=== PATIENT | female | born 1930 | race Caucasian/White ===

== ENCOUNTER 2017-04-02 10:15 | Inpatient (IN) ==
--- NOTE | 2017-04-02 10:36 | EKG Report ---
Stationary ECG Study [facility] Test Date: 04/02/2017 10:23:33 AM Pat Name: RAJ RODAS Department: Room: Gender: F Sample Washer: : 1930 Requested by: Castro Banks Order Number: [id number] Reading MD: SANDI BRIONES Intervals [place] Rate: 109 P: 73 UT: 194 QRS: -20 QRSD: 90 T: 76 QT: 339 QTc: 403 Interpretive Statements SINUS TACHYCARDIA ABNORMAL RHYTHM ECG Electronically Signed On 04-08-17 22:24:18 CDT by SANDI BRIONES [email or web address]
[2017-04-02 10:45] LABS: Basophils % 0.2 % (0.0-0.8); Eosinophils % 0.2 % (0.00-10.9); Hematocrit 34.1 VOL% (35.7-47.0); Hemoglobin 10.3 GM/DL (12.0-16.0); Immature Granulocytes % 0.4 %; Immature Granulocytes Absolute 0.05 #; Lymphocytes # 1.5 10*3/uL (1.4-4.0); Lymphocytes % 12.1 % (21.3-54.2); Mean Corpuscular HGB Conc 30.2 GM/DL (32-36); Mean Corpuscular Hemoglobin 23 PG (27-34); Mean Corpuscular Volume 74.8 FL (87-102); Mean Platelet Volume 8.8 FL (9.6-12.0); Monocytes # 1.1 10*3/uL (0.11-0.8); Monocytes % 8.3 % (1.7-12.7); Neutrophils # 9.9 10*3/uL (1.4-7.4); Neutrophils % 78.8 % (38.7-73.9); Platelet Count 334 T/CUMM (130-400); Red Blood Count 4.56 MC/CUMM (3.8-5.5); Red Cell Distribution Width 16.9 % (9.3-17.3); White Blood Count 12.6 T/CUMM (4-12)
--- NOTE | 2017-04-02 11:16 | XRay Report ---
Portable chest Date: 04/02/2017 Clinical history: Shortness of breath Comparison: 04/26/2016 Technique: Portable AP sitting chest Findings: The heart is enlarged with diffuse arterial calcifications. Progressive diffuse parenchymal findings with small pleural effusions. More prominent pulmonary vasculature/irma with degenerative changes. Impression: Persistent cardiomegaly with progressive edema/infiltration/atelectasis with small pleural effusions. PROCEDURE INTERPRETED AT [facility] DEPARTMENT OF RADIOLOGY Final Report Signed by: Dr. Rosa M Villanueva
[2017-04-02 11:20] LABS: Alanine Aminotransferase 15 U/L (13-56); Albumin 3.5 G/DL (3.4-5.0); Alkaline Phosphatase 114 U/L (45-117); Aspartate Amino Transferase 18 U/L (0-37); Blood Urea Nitrogen 19 MG/DL (7-18); Calcium 8.6 MG/DL (8.5-10.1); Glucose 107 MG/DL (74-106); Magnesium 2.4 MG/DL (1.8-2.4); Osmolality,Calculated 280.4 MOS/KG (273-304); Potassium 3.5 MMOL/L (3.5-5.1); Sodium 140 MMOL/L (136-145); Total Protein 7.4 G/DL (6.4-8.3); Troponin I Only < 0.015 NG/ML (0.00-0.045)
[2017-04-02] MEDS ORDERED: FUROSEMIDE 40 MG/4 ML VIAL IV STA (11:24)
[2017-04-02] MEDS ORDERED: LEVOFLOXACIN INJ 500 MG in PREMIX 1 EACH IV STA (11:28)
[2017-04-02] MEDS ORDERED: ONDANSETRON 4 MG/2 ML VIAL IV STA (11:28)
[2017-04-02] MEDS ORDERED: LEVOFLOXACIN INJ 100 ML IV ONE (11:32)
[2017-04-02] MEDS ORDERED: FUROSEMIDE 40 MG/4 ML VIAL ONE (11:32)
[2017-04-02] MEDS ORDERED: ONDANSETRON 4 MG/2 ML VIAL ONE (11:32)
--- NOTE | 2017-04-02 11:35 | Emergency Department Note ---
Frantz Lewis Mantricia, am scribing for, and in the presence of, Castro Bergeron MD 10:49. Elyssa Lewis Phillip K, MD, personally performed the services described in this documentation, ascribed by Gregory Landry in my presence, and it is both accurate and complete [id number] . Arrival - Arrival Chief Complaint: Shortness of Breath ED Nursing Triage Note: c/o sob onset few weeks ago. +nonproductive cough. pain with coughing Mode of Arrival: Stretcher Limitations: No Limitations Source: Patient, Family - History of Present Illness HPI Narrative: Pt is an 87 y/o white female arriving to ED by EMS with c/o SOB that onset 3 weeks ago. She states that she did not ''think much of it,'' however it has worsened. She reports having pneumonia previously but not this year. She confirms a dry cough, pain all over, dysuria, and a fever today of 102 INNER DIAMETER GRINDER TOOL but denies N/V/D and chills. Pt has a PMHx of HTN,HLD, and a prevalent UTI but denies CHF. Daughter states that she has also been hallucinating. Onset (ago): week(s) Consistency: constant Severity: moderate Severity scale (1-10): 4 Allergies/Adverse Reactions: Allergies Allergy/AdvReac Type Severity Reaction Status Date / Time acetaminophen [From Lortab] Allergy Unknown/Unable Verified 07/24/16 15:06 to obtain Amoxicillin [From Augmentin] Allergy Unknown/Unable Verified 07/24/16 15:06 to obtain clarithromycin [From Biaxin] Allergy Unknown/Unable Verified 07/24/16 15:06 to obtain clavulanic acid Allergy Unknown/Unable Verified 07/24/16 15:06 [From Augmentin] to obtain codeine Allergy Unknown/Unable Verified 07/24/16 15:06 to obtain hydrocodone [From Lortab] Allergy Unknown/Unable Verified 07/24/16 15:06 to obtain levofloxacin [From Levaquin] Allergy Unknown/Unable Verified 07/24/16 15:06 to obtain meperidine [From Demerol] Allergy Unknown/Unable Verified 07/24/16 15:06 to obtain Home Medications: Home Medications Medication Instructions Recorded Confirmed Type amLODIPine [Norvasc] 5 mg PO DAILY 05/23/15 07/24/16 History Sulfameth/Trimeth 800-160 Tab 1 tablet PO BID #14 tablet 04/26/16 07/24/16 Rx [Bactrim Ds Tab] Baclofen Tab [Lioresal] 5 mg PO Q8H PRN 07/24/16 07/24/16 History Donepezil [Aricept] 5 mg PO BEDTIME 07/24/16 07/24/16 History Doxycycline Hyclate 100 mg PO BID 07/24/16 07/24/16 History Escitalopram [Lexapro] 20 mg PO DAILY 07/24/16 07/24/16 History FLUoxetine [PROzac] 20 mg PO DAILY 07/24/16 07/24/16 History Linaclotide [Linzess] 145 mcg PO DAILY 07/24/16 07/24/16 History Loperamide HCl [Loperamide] 2 mg PO Q6H PRN 07/24/16 07/24/16 History Meclizine [Antivert] 12.5 mg PO Q8H PRN 07/24/16 07/24/16 History Memantine HCl 5 mg PO DAILY 07/24/16 07/24/16 History Metoprolol Succinate 50 mg PO BID 07/24/16 07/24/16 History Nitrofurantoin Monohyd/M-Cryst 100 mg PO BID 07/24/16 07/24/16 History [Nitrofurantoin [place]-Mcr 100 mg] PARoxetine HCl [Paroxetine HCl] 30 mg PO QAM 07/24/16 07/24/16 History Phenylephrine/Guaifenesin [Deconex 1 tablet PO Q4H PRN 07/24/16 07/24/16 History IR] Rabeprazole Sodium 20 mg PO BID 07/24/16 07/24/16 History Tapentadol HCl [Nucynta] 100 mg PO DAILY PRN 07/24/16 07/24/16 History Valsartan [Diovan] 160 mg PO BID 07/24/16 07/24/16 History Warfarin Sodium 0.5 mg PO DAILY 07/24/16 07/24/16 History Warfarin Sodium 2.5 mg PO DAILY 07/24/16 07/24/16 History Warfarin Sodium 3 mg PO DAILY 07/24/16 07/24/16 History Warfarin Sodium 4 mg PO DAILY 07/24/16 07/24/16 History Warfarin Sodium 5 mg PO SUTUWETHSA 07/24/16 07/24/16 History cloNIDine TAB [Catapres Tab] 0.2 mg PO BEDTIME 07/24/16 07/24/16 History prednisoLONE acetate [PrednisoLONE 1 drop RIGHT EYE QID 07/24/16 07/24/16 History Acetate 1% Oph Susp] Review of System - Review of System 12 point system: reviewed and no additional remarkable complaints except as stated - Review of System Constitutional: Present: fever (102 INNER DIAMETER GRINDER TOOL), other (SOB; pain all over). Absent: chills, diaphoresis Eyes: Absent: discharge, pain, redness Head/Ears/Nose/Throat: Absent: earache, epistaxis Respiratory: Present: cough. Absent: respiratory distress, wheezing Cardiovascular: Absent: chest pain, palpitations Gastrointestinal: Absent: abdominal pain, nausea, vomiting, diarrhea Genitourinary female: Present: other (dysuria). Absent: abnormal menses, dysuria Musculoskeletal: Absent: arm pain, back pain, leg pain, neck pain Skin: Absent: rash, lesions Neurological: Absent: headache Psychiatric: Absent: anxiety, depression Medical,Surgical,& Family Hx - Medical History Cardio: History of: Hypertension Neurology: History of: Cerebrovascular Accident Endocrine: History of: Dyslipidemia, Thyroid Disorder - Surgical History Reproductive Surgeries: Surgical HX of;: Hysterectomy - Social History Smoking Status: Never smoker Frequency of Alcohol Use: None Type of Drug Use: None Exam Vital Signs: Vital Signs Temperature 99.8 F H 04/02/17 10:24 Pulse Rate 111 H 04/02/17 10:24 Respiratory Rate 18 04/02/17 10:28 Blood Pressure 164/84 04/02/17 10:24 O2 Sat by Pulse Oximetry 955 H 04/02/17 10:19 - General General appearance: alert, in no apparent distress - Head Head exam: Present: atraumatic, normocephalic, normal inspection - Eye Eye exam: Present: PERRL, EOMI, other (pale conjuctiva) - ENT ENT exam: Present: normal exam, normal oropharynx, mucous membranes moist, TM's normal bilaterally, normal external ear exam - Neck Neck exam: Present: normal inspection, full ROM, tenderness. Absent: trachea midline - Chest Chest inspection: Present: normal inspection, symmetric chest wall rise. Absent : tenderness - Respiratory Respiratory exam: Present: rales, wheezes - Cardiovascular Cardiovascular exam: Present: normal rhythm, tachycardia, normal heart sounds - Extremities Exam Extremities exam: Present: full ROM, normal capillary refill, other (trace edema bilat). Absent: tenderness - Back Exam Back exam: Present: normal inspection, full ROM. Absent: tenderness - Neurological Exam Neurological exam: Present: alert, oriented X3, CN II-XII intact, normal gait, reflexes normal - Psychiatric Psychiatric exam: Present: normal affect, normal mood - Skin Skin exam: Present: warm, dry, intact, normal color Course Course Narrative: Patient discussed with the hospitalist. She appears to have an increased infiltrate in the right lower lobe and is possibly overlying congestive heart failure. Results - Labs CBC & BMP: 04/02/17 10:31 04/02/17 10:31 Lab Results: I have reviewed the patients labs Labs: Laboratory Tests 04/02/17 04/02/17 04/02/17 10:31 10:31 10:31 WBC 12.6 H Hgb 10.3 L Hct 34.1 L MCV 74.8 L MCH 23 L MCHC 30.2 L MPV 8.8 L Neut % (Auto) 78.8 H Lymph % (Auto) 12.1 L Neut # (Auto) 9.9 H [place] # (Auto) 1.1 H Chloride 108 H BUN 19 H Creatinine 1.40 H Glucose 107 H B-Natriuretic Peptide 182 H Globulin 3.9 H Albumin/Globulin Ratio 0.8 L - EKG EKG results: interpreted by AYOD (Sinus tachycardia) - Diagnostic Findings Procedure: Chest x-ray: report reviewed by me (Persistent cardiomegaly with progressive faith/infiltration/atelectasis with small pleural effusions.) Disposition Clinical Impression: Congestive heart failure, Possible right lower lobe pneumonia Case discussed with: patient, patient's family Disposition: Still a Patient Condition: Guarded Additional Instructions: Admit to the hospitalist.
[2017-04-02 12:03] LABS: PT Patient Result 11.1 SECS
--- NOTE | 2017-04-02 12:13 | Hospitalist History & Physical ---
Assessment and Plan - Time spent with patient Time spent with patient: Greater than 30 minutes (1) Pneumonia Status: Acute Assessment and plan: CXR reveals progressive edema/infiltration/atelectasis with small pleural effusions. Started on levaquin in the ER. Will continue antibiotic coverage. Current Visit: Yes (2) Hypertension Status: Acute Assessment and plan: Controlled on home meds. Will continue to monitor and adjust medications accordingly. Current Visit: Yes (3) Congestive heart failure Status: Acute Assessment and plan: CXR show small pleural effusions. BNP slightly elevated. Given lasix in the ER. Was scheduled to have an appointment with Dr. Bell, Cardiology, today. Will continue Lasix and consult cardiology as necessary. Current Visit: Yes (4) CAD (coronary artery disease) Status: Acute Current Visit: Yes (5) Confused but orients easily Status: Acute Assessment and plan: Patient complains of dysuria. Will check a UA for suspected UTI. Current Visit: Yes History of Present Illness Chief complaint: SOB and coughing History of present illness: Ms. Subramanian is a 87 year old female with a past medical history significant for hypertension, CAD with PCI, neuropathy, advanced age who presents to the ED with complains of worsening dypnea and cough x 3 weeks. She reports that she starting coughing about 3 weeks ago and recently starting becoming more short of breath. She also complains of a sore throat and nonproductive cough with fever. Her daughter is at bedside and assisted with much of the history adding that the patient has recently become more confused and has complained of dysuria. She also added that the patient now sleeps in the recliner where she finds it easier to breathe. The patient denies a known history of congestive heart failure, recent infections, any chest pain on inspiration, palpitations, near syncope, abdominal pain. The patient denies taking any medication to alleviate the symptoms. Chest x-ray on admission reveals persistent cardiomegaly with progressive edema/infiltrate/atelectasis with small pleural effusions. Preliminary lab work is significant for WBC 12.6, BUN 19, Cr 1.4, BNP 182. She will be admitted to the hospital medicine service for further evaluation and treatment. She is a full code. The case has been discussed with Dr. Bennett who will follow with an addendum. Home Medications Medication Instructions Recorded Confirmed Type amLODIPine [Norvasc] 5 mg PO DAILY 05/23/15 07/24/16 History Sulfameth/Trimeth 800-160 Tab 1 tablet PO BID #14 tablet 04/26/16 07/24/16 Rx [Bactrim Ds Tab] Baclofen Tab [Lioresal] 5 mg PO Q8H PRN 07/24/16 07/24/16 History Donepezil [Aricept] 5 mg PO BEDTIME 07/24/16 07/24/16 History Doxycycline Hyclate 100 mg PO BID 07/24/16 07/24/16 History Escitalopram [Lexapro] 20 mg PO DAILY 07/24/16 07/24/16 History FLUoxetine [PROzac] 20 mg PO DAILY 07/24/16 07/24/16 History Linaclotide [Linzess] 145 mcg PO DAILY 07/24/16 07/24/16 History Loperamide HCl [Loperamide] 2 mg PO Q6H PRN 07/24/16 07/24/16 History Meclizine [Antivert] 12.5 mg PO Q8H PRN 07/24/16 07/24/16 History Memantine HCl 5 mg PO DAILY 07/24/16 07/24/16 History Metoprolol Succinate 50 mg PO BID 07/24/16 07/24/16 History Nitrofurantoin Monohyd/M-Cryst 100 mg PO BID 07/24/16 07/24/16 History [Nitrofurantoin [place]-Mcr 100 mg] PARoxetine HCl [Paroxetine HCl] 30 mg PO QAM 07/24/16 07/24/16 History Phenylephrine/Guaifenesin [Deconex 1 tablet PO Q4H PRN 07/24/16 07/24/16 History IR] Rabeprazole Sodium 20 mg PO BID 07/24/16 07/24/16 History Tapentadol HCl [Nucynta] 100 mg PO DAILY PRN 07/24/16 07/24/16 History Valsartan [Diovan] 160 mg PO BID 07/24/16 07/24/16 History Warfarin Sodium 0.5 mg PO DAILY 07/24/16 07/24/16 History Warfarin Sodium 2.5 mg PO DAILY 07/24/16 07/24/16 History Warfarin Sodium 3 mg PO DAILY 07/24/16 07/24/16 History Warfarin Sodium 4 mg PO DAILY 07/24/16 07/24/16 History Warfarin Sodium 5 mg PO SUTUWETHSA 07/24/16 07/24/16 History cloNIDine TAB [Catapres Tab] 0.2 mg PO BEDTIME 07/24/16 07/24/16 History prednisoLONE acetate [PrednisoLONE 1 drop RIGHT EYE QID 07/24/16 07/24/16 History Acetate 1% Oph Susp] Allergies Allergy/AdvReac Type Severity Reaction Status Date / Time acetaminophen [From Lortab] Allergy Unknown/Unable Verified 07/24/16 15:06 to obtain Amoxicillin [From Augmentin] Allergy Unknown/Unable Verified 07/24/16 15:06 to obtain clarithromycin [From Biaxin] Allergy Unknown/Unable Verified 07/24/16 15:06 to obtain clavulanic acid Allergy Unknown/Unable Verified 07/24/16 15:06 [From Augmentin] to obtain codeine Allergy Unknown/Unable Verified 07/24/16 15:06 to obtain hydrocodone [From Lortab] Allergy Unknown/Unable Verified 07/24/16 15:06 to obtain levofloxacin [From Levaquin] Allergy Unknown/Unable Verified 07/24/16 15:06 to obtain meperidine [From Demerol] Allergy Unknown/Unable Verified 07/24/16 15:06 to obtain Medical,Surgical,& Family Hx - Medical History Cardio: History of: Hypertension Neurology: History of: Cerebrovascular Accident Endocrine: History of: Dyslipidemia, Thyroid Disorder - Surgical History Reproductive Surgeries: Surgical HX of;: Hysterectomy - Social History Smoking Status: Never smoker Frequency of Alcohol Use: None Type of Drug Use: None Marital Status: Single Lives With:: Alone (lives in [facility]) Functional capacity: uses cane/walker - Constitutional Constitutional: Present: fever(s), frequent falls, headache(s) - EENT Eyes: Absent: blurry vision, loss of vision Ears: Absent: decreased hearing, ear pain Nose, mouth and throat: Present: headache(s), sore throat. Absent: epistaxis, nasal congestion, sinus pressure, vertigo - Cardiovascular Cardiovascular: Present: dyspnea, dyspnea on exertion, edema. Absent: chest pain at rest, chest pain with activity - Respiratory Respiratory: Present: cough, dyspnea, wheezing. Absent: hemoptysis, pain on inspiration - Gastrointestinal Gastrointestinal: Absent: constipation, diarrhea, nausea, vomiting - Genitourinary Genitourinary: Present: dysuria. Absent: hematuria - Musculoskeletal Musculoskeletal: Present: myalgias. Absent: back pain - Neurological Neurological: Present: confusion, numbness. Absent: dizziness, syncope - Psychiatric Psychiatric: Present: confusion. Absent: anxiety, depression - Endocrine Endocrine: Absent: cold intolerance, fatigue, heat intolerance - Hematologic/Lymphatic Hematologic/Lymphatic: Absent: easy bleeding, easy bruising Exam - Constitutional Vitals: Period Temp Pulse Resp BP Sys/Alas Pulse Ox Last 24 Hr 99.8 F-99.8 F 111-111 18-18 164-164/84-84 955 Exam: General appearance: obese, no acute distress - Head Head exam: Present: normocephalic, atraumatic - Eye Eye exam: Present: EOMI. Absent: conjunctival injection, nystagmus Pupils: Present: HANNA, normal accommodation - ENT ENT exam: Present: normal exam, normal external ear exam - Neck Neck exam: Present: normal inspection. Absent: lymphadenopathy, tenderness, thyromegaly - Respiratory Respiratory exam: Present: decreased breath sounds. Absent: rales, wheezes - Cardiovascular Cardiovascular exam: Present: regular rate and rhythm. Absent: carotid bruit, gallop, rubs - GI/Abdominal GI/Abdominal exam: Present: normal bowel sounds. Absent: ascites, distended, mass - Extremities Exam Extremities exam: Present: normal inspection, normal capillary refill. Absent: edema - Back Exam Back exam: Absent: CVA tenderness (L), CVA tenderness (R) - Neurological Exam Neurological exam: Present: alert, oriented X3 - Psychiatric Psychiatric exam: Present: normal affect, normal mood - Skin Skin exam: Present: normal color, warm, dry Results - Labs CBC & BMP: 04/02/17 10:31 04/02/17 10:31 Lab Results: I have reviewed the past 24 hour labs - Diagnostic Findings Procedure: Chest x-ray: image reviewed by me, report reviewed by me
[2017-04-02 12:18] LABS: Apearance,Urine Slightly Hazy (Clear); Bacteria,Urine Moderate /HPF (Few); Bilirubin,Urine Negative (Negative); Blood, Urine Moderate mg/dL (Negative); Glucose,Urine (UA) Negative (Negative); Ketones,Urine Negative (Negative); Mucus,Urine Few /LPF (Occasional); Nitrite,Urine Positive (Negative); Protein,Urine 100 MG/DL; RBC,Urine 7 /HPF (0-4); Squamous Epithelial Cell,Urine Occasional /HPF (0-10); Urine Color Yellow (Yellow); Urine Specific Gravity 1.019 (1.001-1.035); WBC,Urine 52 /HPF (0-6)
[2017-04-02] MEDS ORDERED: MAGNESIUM SULF RIDER 2 GM in PREMIX 1 EACH IV PRN (13:37)
[2017-04-02] MEDS ORDERED: MAGNESIUM SULF RIDER 4 GM in PREMIX 1 EACH IV PRN (13:37)
[2017-04-02] MEDS ORDERED: cefTRIAXone 1,000 MG in SODIUM CHLORIDE 0.9% 100 ML IV SCH (14:00)
[2017-04-02] MEDS: ACETAMINOPHEN 325 MG TABLET PO PRN ×2 (14:18→20:39)
[2017-04-02] MEDS ORDERED: FUROSEMIDE 40 MG/4 ML VIAL IV SCH (16:00)
[2017-04-02] MEDS: TEMAZEPAM 15 MG CAPSULE PO SCH (20:40)
[2017-04-03 07:00] LABS: Basophils % 0.2 % (0.0-0.8); Eosinophils # 0.1 10*3/uL (0.0-0.87); Eosinophils % 0.5 % (0.00-10.9); Hematocrit 31.9 VOL% (35.7-47.0); Hemoglobin 9.3 GM/DL (12.0-16.0); Immature Granulocytes % 0.4 %; Immature Granulocytes Absolute 0.05 #; Lymphocytes # 1.5 10*3/uL (1.4-4.0); Lymphocytes % 11.9 % (21.3-54.2); Mean Corpuscular HGB Conc 29.2 GM/DL (32-36); Mean Corpuscular Hemoglobin 22 PG (27-34); Mean Corpuscular Volume 76.3 FL (87-102); Monocytes # 1.3 10*3/uL (0.11-0.8); Neutrophils # 9.7 10*3/uL (1.4-7.4); Platelet Count 312 T/CUMM (130-400); Red Blood Count 4.18 MC/CUMM (3.8-5.5); Red Cell Distribution Width 16.9 % (9.3-17.3); White Blood Count 12.6 T/CUMM (4-12)
[2017-04-03 07:26] LABS: Calcium 7.8 MG/DL (8.5-10.1); Osmolality,Calculated 284.1 MOS/KG (273-304); Potassium 3.2 MMOL/L (3.5-5.1)
[2017-04-03] MEDS: GABAPENTIN 600 MG TABLET PO SCH ×2 (07:58→16:49)
[2017-04-03] MEDS: ASPIRIN CHEW 81 MG TABLET PO SCH (07:59)
[2017-04-03] MEDS: ACETAMINOPHEN 325 MG TABLET PO PRN (08:00)
[2017-04-03] MEDS: PANTOPRAZOLE 40 MG TABLET PO SCH ×2 (08:00→16:50)
[2017-04-03] MEDS: TOPIRAMATE 25 MG TABLET PO SCH ×3 (08:01→16:49)
[2017-04-03] MEDS: CARVEDILOL 12.5 MG TABLET PO SCH (08:01)
[2017-04-03] MEDS: PARoxetine 20 MG TABLET PO SCH ×2 (08:01→16:49)
--- NOTE | 2017-04-03 10:06 | XRay Report ---
Portable chest Date: 04/03/2017 Clinical history: CHF Comparison: 04/02/2017 Technique: Portable AP sitting chest Findings: Stable cardiomegaly with uncoiling of the aorta. Probable additional hiatal hernia. Reduced parenchymal findings with smaller pleural effusions. Degenerative changes are noted. Impression: Improved CHF with smaller pleural effusions. PROCEDURE INTERPRETED AT [facility] DEPARTMENT OF RADIOLOGY Final Report Signed by: Dr. Rosa M Villanueva
[2017-04-03] MEDS: ARIPiprazole 2 MG TABLET PO SCH (11:18)
[2017-04-03] MEDS: amLODIPine 5 MG TABLET PO SCH (11:19)
--- NOTE | 2017-04-03 13:50 | ECHO Report ---
Emily Subramanian Exam Date: 04/03/2017 09:37 Referring Physician: Technologist: Estrellita Bergman Age: 87 Ht (in): 65 Wt (lb): 192 Gender: F Exam Location: [facility] Echo Indications: pneumonia, HTN, CHF, CAD, edema, dyspnea, cough, confusion BP: 134 / 62 HR: 78 Rhythm: Sinus Technical Quality: IMPRESSIONS Technically difficult study Normal chamber sizes 2-3+ concentric LVH Hyperdynamic LV systolic function with ejection fraction estimated be 70% 1+ atrial, mitral, and tricuspid regurgitation with RVSP 43 mmHg plus RAP suggesting moderate pulmonary hypertension Diastolic dysfunction noted MEASUREMENTS (Male / Female) Normal Values 2D ECHO LV Diastolic Diameter PLAX 2.5 cm 4.2 - 5.9 / 3.9 - 5.3 cm LV Systolic Diameter PLAX 1.8 cm LV Fractional Shortening PLAX 25.8 % IVS Diastolic Thickness 1.8 cm 0.6 - 1.0 / 0.6 - 0.9 cm LVPW Diastolic Thickness 1.5 cm 0.6 - 1.0 / 0.6 - 0.9 cm RV Internal Dim ED PLAX 2.7 cm Aortic Root Diameter 2.6 cm LA Systolic Diameter LX 3.1 cm 3.0 - 4.0 / 2.7 - 3.8 cm DOPPLER TR Peak Velocity 326.0 cm/s TR Peak Gradient 42.5 mmHg FINDINGS Left Ventricle Mild concentric left ventricular hypertrophy with diastolic dysfunction. Left ventricular ejection fraction is estimated at 55-60 %. Right Ventricle Normal right ventricular size. Right Atrium Normal right atrial size. Left Atrium Normal left atrial size. Mitral Valve Mild mitral valve sclerosis. Mild mitral valve regurgitation. Aortic Valve Mild aortic valve sclerosis. Mild aortic valve regurgitation. Tricuspid Valve Mild tricuspid valve sclerosis. Moderate tricuspid valve regurgitation. Tricuspid regurgitation velocities suggest a PAP of 42.5mmHg + RAP. Pulmonic Valve Mild pulmonic valve sclerosis. Mild pulmonary valve regurgitation. Pericardium No pericardial effusion. Aorta Normal size aortic root and proximal ascending aorta. Jerson Baird (Electronically Signed) Final Date: 03 Apr 2017 13:49
--- NOTE | 2017-04-03 15:41 | Hospitalist Progress Note ---
Assessment and Plan - Time spent with patient Time spent with patient: Greater than 30 minutes (1) UTI (urinary tract infection) Status: Acute Assessment and plan: Continue antibiotics. Current Visit: Yes (2) Positive blood culture Status: Acute Assessment and plan: Start Vancomycin. Current Visit: Yes (3) CAD (coronary artery disease) Status: Acute Assessment and plan: Continue current management. No chest pain. Current Visit: Yes (4) Congestive heart failure Status: Acute Assessment and plan: Echo done. Diastolic with mild exacerbation. Current Visit: Yes (5) Hypertension Status: Acute Assessment and plan: Continue current management. Current Visit: Yes (6) Pneumonia Status: Acute Assessment and plan: Continue antibiotics. Current Visit: Yes Hospitalist: Subjective Interval history: No complaints or overnight events. Exam - Constitutional Vitals: Period Temp Pulse Resp BP Sys/Alas Pulse Ox Last 24 Hr 97.9 F-99.6 F 60-106 20-24 124-137/53-68 91-93 General appearance: no acute distress - Head Head exam: Present: normocephalic, atraumatic - Eye Eye exam: Present: EOMI Pupils: Present: HANNA - ENT ENT exam: Present: normal exam - Neck Neck exam: Present: normal inspection - Respiratory Respiratory exam: Present: clear to auscultation bilaterally. Absent: rhonchi, wheezes - Cardiovascular Cardiovascular exam: Present: regular rate and rhythm. Absent: gallop, rubs, systolic murmur - GI/Abdominal GI/Abdominal exam: Present: normal bowel sounds, soft. Absent: distended, firm , guarding, tenderness, rebound - Extremities Exam Extremities exam: Present: normal inspection. Absent: calf tenderness, edema Results - Labs CBC & BMP: 04/03/17 06:16 04/03/17 06:16 Lab Results: I have reviewed the past 24 hour labs
[2017-04-03] MEDS: CLORAZEPATE 3.75 MG TABLET PO PRN (16:49)
[2017-04-03] MEDS: CARVEDILOL 6.25 MG TABLET PO SCH (16:50)
[2017-04-03] MEDS: VANCOMYCIN INJ 1,500 MG in SODIUM CHLORIDE 0.9% 500 ML IV SCH (17:47)
[2017-04-03] MEDS: TEMAZEPAM 15 MG CAPSULE PO SCH (21:02)
[2017-04-04 04:37] LABS: Basophils % 0.2 % (0.0-0.8); Eosinophils # 0.2 10*3/uL (0.0-0.87); Eosinophils % 1.3 % (0.00-10.9); Hematocrit 29.9 VOL% (35.7-47.0); Hemoglobin 8.8 GM/DL (12.0-16.0); Immature Granulocytes % 0.4 %; Immature Granulocytes Absolute 0.05 #; Lymphocytes # 2.2 10*3/uL (1.4-4.0); Lymphocytes % 17.3 % (21.3-54.2); Mean Corpuscular HGB Conc 29.4 GM/DL (32-36); Mean Corpuscular Hemoglobin 22 PG (27-34); Mean Corpuscular Volume 76.1 FL (87-102); Mean Platelet Volume 9.3 FL (9.6-12.0); Neutrophils # 9.2 10*3/uL (1.4-7.4); Neutrophils % 72.8 % (38.7-73.9); Platelet Count 331 T/CUMM (130-400); Red Blood Count 3.93 MC/CUMM (3.8-5.5); Red Cell Distribution Width 16.9 % (9.3-17.3); White Blood Count 12.7 T/CUMM (4-12)
[2017-04-04 05:06] LABS: Calcium 7.8 MG/DL (8.5-10.1); Osmolality,Calculated 281.4 MOS/KG (273-304); Potassium 3.4 MMOL/L (3.5-5.1)
[2017-04-04] MEDS: PARoxetine 20 MG TABLET PO SCH ×2 (08:54→16:52)
[2017-04-04] MEDS: TOPIRAMATE 25 MG TABLET PO SCH ×3 (08:54→16:59)
[2017-04-04] MEDS: PANTOPRAZOLE 40 MG TABLET PO SCH ×2 (08:54→16:52)
[2017-04-04] MEDS: GABAPENTIN 600 MG TABLET PO SCH ×2 (08:54→16:52)
[2017-04-04] MEDS: ASPIRIN CHEW 81 MG TABLET PO SCH (08:54)
[2017-04-04] MEDS: CARVEDILOL 12.5 MG TABLET PO SCH (08:55)
[2017-04-04] MEDS: AZTREONAM 1,000 MG in SODIUM CHLORIDE 0.9% 100 ML IV SCH ×2 (08:55→16:51)
[2017-04-04] MEDS: LEVOFLOXACIN INJ 750 MG in PREMIX 1 EACH IV SCH (09:33)
[2017-04-04] MEDS: ARIPiprazole 2 MG TABLET PO SCH (12:31)
[2017-04-04] MEDS: amLODIPine 5 MG TABLET PO SCH (12:31)
[2017-04-04] MEDS ORDERED: POLYETHYLENE GLYCOL POWDER 17 GM PACK PO PRN (12:42)
--- NOTE | 2017-04-04 13:27 | Hospitalist Progress Note ---
Assessment and Plan - Time spent with patient Time spent with patient: Greater than 30 minutes (1) UTI (urinary tract infection) Status: Acute Assessment and plan: Continue antibiotics. Will add aztreonam. Current Visit: Yes (2) Positive blood culture Status: Acute Assessment and plan: Continue Vancomycin. Current Visit: Yes (3) CAD (coronary artery disease) Status: Acute Assessment and plan: Continue current management. No chest pain. Current Visit: Yes (4) Congestive heart failure Status: Acute Assessment and plan: Echo done. Diastolic with mild exacerbation. Current Visit: Yes (5) Hypertension Status: Acute Assessment and plan: Continue current management. Current Visit: Yes (6) Pneumonia Status: Acute Assessment and plan: Continue antibiotics. Current Visit: Yes Hospitalist: Subjective Interval history: No complaints. She had a mild recurrence of a low grade fever. Exam - Constitutional Vitals: Period Temp Pulse Resp BP Sys/Alas Pulse Ox Last 24 Hr 98.0 F-99.9 F 78-109 19-22 110-156/60-72 91-97 General appearance: no acute distress - Head Head exam: Present: normocephalic, atraumatic - Eye Eye exam: Present: EOMI Pupils: Present: HANNA - ENT ENT exam: Present: normal exam - Neck Neck exam: Present: normal inspection - Respiratory Respiratory exam: Present: clear to auscultation bilaterally. Absent: rhonchi, wheezes - Cardiovascular Cardiovascular exam: Present: regular rate and rhythm. Absent: gallop, rubs, systolic murmur - GI/Abdominal GI/Abdominal exam: Present: normal bowel sounds, soft. Absent: distended, firm , guarding, tenderness, rebound - Extremities Exam Extremities exam: Present: normal inspection. Absent: calf tenderness, edema Results - Labs CBC & BMP: 04/04/17 03:17 04/04/17 03:17 Lab Results: I have reviewed the past 24 hour labs
[2017-04-04] MEDS ORDERED: LACTULOSE 20 GM/30 ML UDCUP PO PRN (15:07)
[2017-04-04] MEDS: CARVEDILOL 6.25 MG TABLET PO SCH (16:52)
[2017-04-04] MEDS: ACETAMINOPHEN 325 MG TABLET PO PRN (20:55)
[2017-04-04] MEDS: TEMAZEPAM 15 MG CAPSULE PO SCH (20:56)
[2017-04-05] MEDS: AZTREONAM 1,000 MG in SODIUM CHLORIDE 0.9% 100 ML IV SCH ×3 (00:37→15:38)
[2017-04-05 06:01] LABS: Basophils % 0.2 % (0.0-0.8); Eosinophils # 0.2 10*3/uL (0.0-0.87); Hematocrit 30.1 VOL% (35.7-47.0); Hemoglobin 8.9 GM/DL (12.0-16.0); Immature Granulocytes % 0.5 %; Immature Granulocytes Absolute 0.06 #; Lymphocytes # 1.7 10*3/uL (1.4-4.0); Lymphocytes % 14.8 % (21.3-54.2); Mean Corpuscular HGB Conc 29.6 GM/DL (32-36); Mean Corpuscular Hemoglobin 23 PG (27-34); Mean Corpuscular Volume 77.2 FL (87-102); Mean Platelet Volume 8.9 FL (9.6-12.0); Monocytes # 0.9 10*3/uL (0.11-0.8); Monocytes % 8.3 % (1.7-12.7); Neutrophils # 8.3 10*3/uL (1.4-7.4); Neutrophils % 74.2 % (38.7-73.9); Platelet Count 319 T/CUMM (130-400); Red Cell Distribution Width 16.8 % (9.3-17.3); White Blood Count 11.1 T/CUMM (4-12)
[2017-04-05 06:30] LABS: Calcium 8.2 MG/DL (8.5-10.1); Osmolality,Calculated 281.4 MOS/KG (273-304); Potassium 3.4 MMOL/L (3.5-5.1)
[2017-04-05] MEDS: ASPIRIN CHEW 81 MG TABLET PO SCH (09:04)
[2017-04-05] MEDS: PARoxetine 20 MG TABLET PO SCH ×2 (09:04→16:44)
[2017-04-05] MEDS: GABAPENTIN 600 MG TABLET PO SCH ×2 (09:04→16:44)
[2017-04-05] MEDS: PANTOPRAZOLE 40 MG TABLET PO SCH ×2 (09:04→16:44)
[2017-04-05] MEDS: CARVEDILOL 12.5 MG TABLET PO SCH (09:04)
[2017-04-05] MEDS: TOPIRAMATE 25 MG TABLET PO SCH ×3 (09:04→16:44)
[2017-04-05] MEDS: CLORAZEPATE 3.75 MG TABLET PO PRN ×2 (09:13→20:42)
[2017-04-05] MEDS: ARIPiprazole 2 MG TABLET PO SCH (11:48)
[2017-04-05] MEDS: amLODIPine 5 MG TABLET PO SCH (11:49)
--- NOTE | 2017-04-05 11:55 | Hospitalist Progress Note ---
Assessment and Plan - Time spent with patient Time spent with patient: Greater than 30 minutes (1) UTI (urinary tract infection) Status: Acute Assessment and plan: Continue antibiotics. Current Visit: Yes (2) Positive blood culture Status: Acute Assessment and plan: Continue Vancomycin. Awaiting final culture results. Current Visit: Yes (3) CAD (coronary artery disease) Status: Acute Assessment and plan: Continue current management. No chest pain. Current Visit: Yes (4) Congestive heart failure Status: Acute Assessment and plan: Echo done. Diastolic with mild exacerbation. Current Visit: Yes (5) Hypertension Status: Acute Assessment and plan: Continue current management. Current Visit: Yes (6) Pneumonia Status: Acute Assessment and plan: Continue antibiotics. Current Visit: Yes Hospitalist: Subjective Interval history: Tmax 99.7. Patient has no complaints. Exam - Constitutional Vitals: Period Temp Pulse Resp BP Sys/Alas Pulse Ox Last 24 Hr 97.2 F-99.7 F 98-99 18-22 100-129/52-67 91-96 General appearance: no acute distress - Head Head exam: Present: normocephalic, atraumatic - Eye Eye exam: Present: EOMI Pupils: Present: HANNA - ENT ENT exam: Present: normal exam - Neck Neck exam: Present: normal inspection - Respiratory Respiratory exam: Present: clear to auscultation bilaterally. Absent: rhonchi, wheezes - Cardiovascular Cardiovascular exam: Present: regular rate and rhythm. Absent: gallop, rubs, systolic murmur - GI/Abdominal GI/Abdominal exam: Present: normal bowel sounds, soft. Absent: distended, firm , guarding, tenderness, rebound - Extremities Exam Extremities exam: Present: normal inspection. Absent: calf tenderness, edema Results - Labs CBC & BMP: 04/05/17 05:46 04/05/17 05:46 Lab Results: I have reviewed the past 24 hour labs
[2017-04-05] MEDS: NYSTATIN POWDER 15 GM BOTTLE TOP SCH ×2 (14:00→20:42)
[2017-04-05] MEDS: VANCOMYCIN INJ 1,500 MG in SODIUM CHLORIDE 0.9% 500 ML IV SCH (16:43)
[2017-04-05] MEDS: CARVEDILOL 6.25 MG TABLET PO SCH (16:44)
[2017-04-05] MEDS: TEMAZEPAM 15 MG CAPSULE PO SCH (20:42)
[2017-04-06] MEDS: AZTREONAM 1,000 MG in SODIUM CHLORIDE 0.9% 100 ML IV SCH ×2 (00:07→09:23)
[2017-04-06 06:18] LABS: Basophils % 0.4 % (0.0-0.8); Eosinophils # 0.3 10*3/uL (0.0-0.87); Eosinophils % 3.4 % (0.00-10.9); Hematocrit 29.5 VOL% (35.7-47.0); Hemoglobin 8.5 GM/DL (12.0-16.0); Immature Granulocytes % 0.4 %; Immature Granulocytes Absolute 0.03 #; Lymphocytes # 1.3 10*3/uL (1.4-4.0); Lymphocytes % 15.3 % (21.3-54.2); Mean Corpuscular HGB Conc 28.8 GM/DL (32-36); Mean Corpuscular Hemoglobin 22 PG (27-34); Monocytes # 0.6 10*3/uL (0.11-0.8); Monocytes % 7.4 % (1.7-12.7); Neutrophils # 6.3 10*3/uL (1.4-7.4); Neutrophils % 73.1 % (38.7-73.9); Platelet Count 360 T/CUMM (130-400); Red Blood Count 3.83 MC/CUMM (3.8-5.5); White Blood Count 8.6 T/CUMM (4-12)
[2017-04-06 06:47] LABS: Calcium 8.1 MG/DL (8.5-10.1); Osmolality,Calculated 285.1 MOS/KG (273-304); Potassium 3.6 MMOL/L (3.5-5.1)
[2017-04-06 06:55] LABS: Elliptocytes Few; Hypochromasia 1+; Microcytosis 1+
[2017-04-06 06:56] LABS: Acanthocytes Few; Platelet Estimate Normal
[2017-04-06] MEDS: GABAPENTIN 600 MG TABLET PO SCH ×2 (09:22→16:25)
[2017-04-06] MEDS: ASPIRIN CHEW 81 MG TABLET PO SCH (09:22)
[2017-04-06] MEDS: PANTOPRAZOLE 40 MG TABLET PO SCH ×2 (09:22→16:25)
[2017-04-06] MEDS: TOPIRAMATE 25 MG TABLET PO SCH ×3 (09:23→16:26)
[2017-04-06] MEDS: PARoxetine 20 MG TABLET PO SCH ×2 (09:23→16:25)
[2017-04-06] MEDS: CARVEDILOL 12.5 MG TABLET PO SCH (09:23)
[2017-04-06] MEDS: NYSTATIN POWDER 15 GM BOTTLE TOP SCH ×2 (09:27→21:45)
[2017-04-06] MEDS ORDERED: VANCOMYCIN INJ 1,500 MG in SODIUM CHLORIDE 0.9% 500 ML IV SCH (10:00)
[2017-04-06] MEDS: LEVOFLOXACIN INJ 750 MG in PREMIX 1 EACH IV SCH (10:37)
[2017-04-06] MEDS: ARIPiprazole 2 MG TABLET PO SCH (11:50)
[2017-04-06] MEDS: amLODIPine 5 MG TABLET PO SCH (11:51)
[2017-04-06] MEDS: CLORAZEPATE 3.75 MG TABLET PO PRN (11:51)
--- NOTE | 2017-04-06 15:16 | Discharge Summary ---
Hospital Course - Hospital Course Hospital Course: Ms. Subramanian was admitted for evaluation of shortness of breath. She was found to have pneumonia and a UTI. She was initiated on IV antibiotic therapy. Blood culture, 1/2 bottles returned positive for streptococcus mitis. This was felt to be a contaminant. Patients urine culture returned E. Coli and she was switched to IV Levaquin. Echocardiogram revealed diastolic dysfunction. Patient had complaints of dysphagia and was seen by GI however she refused an EGD. She was seen by PT and social work and was eventually accepted to a swing bed for rehab. By discharge she met maximum benefit of hospitalization. She will require five more days of oral Levaquin at discharge. - Time spent with patient Time with patient DS: Greater than 30 minutes Diagnosis - Discharge Diagnosis (1) UTI (urinary tract infection) Status: Acute (2) Positive blood culture Status: Acute (3) CAD (coronary artery disease) Status: Acute (4) Congestive heart failure Status: Acute (5) Hypertension Status: Acute (6) Pneumonia Status: Acute Discharge Plan - Discharge Data Disposition: Disch/Xfer to Snf Condition at Discharge: Stable Discharge Diet: advance to your usual diet - Discharge Medications New Aspirin Chew Tab 81 mg PO DAILY #0 tablet Continue amLODIPine [Norvasc] 5 mg PO DAILY@12 Potassium Chloride 10 meq PO DAILY@12 PARoxetine [Paxil] 20 mg PO BID W/MEALS Clorazepate [Tranxene] 3.75 mg PO BID PRN PRN Reason: Anxiety Gabapentin 600 mg PO BID W/MEALS Carvedilol 12.5 mg PO DAILY W/BREAKFAST Furosemide 20 mg PO DAILY@12 ARIPiprazole [Aripiprazole] 2 mg PO DAILY@12 Pantoprazole Tab [Protonix Tab] 40 mg PO BID W/MEALS Topiramate 25 mg PO TID W/MEALS Carvedilol 6.25 mg PO DAILY W/SUPPER Temazepam 15 mg PO BEDTIME Levofloxacin Tab [Levaquin Tab] 500 mg PO DAILY #5 tablet - Follow Up or Referral - Forms/Instructions Exam - Constitutional Vitals: Period Temp Pulse Resp BP Sys/Alas Pulse Ox Last 24 Hr 97.5 F-98.8 F 86-101 18-22 119-151/65-80 91-98 General appearance: normal weight, no acute distress - Head Head exam: Present: normal inspection, normocephalic, atraumatic - Eye Eye exam: Present: EOMI Pupils: Present: HANNA - ENT ENT exam: Present: normal exam - Neck Neck exam: Present: normal inspection - Respiratory Respiratory exam: Present: clear to auscultation bilaterally. Absent: accessory muscle use, prolonged expiratory phase, wheezes - Cardiovascular Cardiovascular exam: Present: regular rate and rhythm. Absent: bradycardia, irregular rhythm, systolic murmur - GI/Abdominal GI/Abdominal exam: Present: normal bowel sounds. Absent: ascites, distended, hypoactive bowel sounds, tenderness - Extremities Exam Extremities exam: Present: normal inspection. Absent: full ROM Discharge Results Procedures and tests throughout hospitalization: Pending Orders 04/07/17 21:30 Vancomycin,Trough Timed Labs on day of discharge: Labs from last 24 hours 04/06/17 04/06/17 04/05/17 04:31 04:31 16:21 WBC 8.6 RBC 3.83 Hgb 8.5 L Hct 29.5 L MCV 77.0 L MCH 22 L MCHC 28.8 L RDW 17.0 Plt Count 360 MPV 9.0 L Neut % (Auto) 73.1 Lymph % (Auto) 15.3 L Coos % (Auto) 7.4 Eos % (Auto) 3.4 Baso % (Auto) 0.4 Neut # (Auto) 6.3 Lymph # (Auto) 1.3 L [place] # (Auto) 0.6 Eos # (Auto) 0.3 Baso # (Auto) 0.0 Immature Gran % 0.4 Nucleated RBC % 0.0 Immature Gran # 0.03 Nucleated RBCs # 0.00 Platelet Estimate Normal Hypochromasia 1+ Microcytosis 1+ Elliptocytes Few Acanthocytes (Spur) Few Sodium 142 Potassium 3.6 Chloride 108 H Carbon Dioxide 25 Anion Gap 12.6 BUN 19 H Creatinine 1.00 GFR Calculation 57 BUN/Creatinine Ratio 19.00 Glucose 108 H Calculated Osmolality 285.1 Calcium 8.1 L Vancomycin Trough 3.6 L DS: Provider Date of admission: 04/02/17 11:58 Primary care physician: . No PCP Attending physician on admission: Christina Bennett MD Consults: 04/02/17 14:19 Consult to Pharmacy [CONS] Routine Reason for Pharmacy Consult: Adjust Meds Renal Funct 04/03/17 15:20 Consult to Pharmacy [CONS] Routine Reason for Pharmacy Consult: Dose/Manage Vancomycin 04/03/17 15:55 Consult to Pharmacy [CONS] Routine Reason for Pharmacy Consult: Dose/Manage Vancomycin Discharging clinician: Christina Bennett MD Expected date of discharge: 04/10/17
--- NOTE | 2017-04-06 15:30 | Hospitalist Progress Note ---
Assessment and Plan - Time spent with patient Time spent with patient: Greater than 30 minutes (1) UTI (urinary tract infection) Status: Acute Assessment and plan: Continue antibiotics. Current Visit: Yes (2) Positive blood culture Status: Acute Assessment and plan: Strep mitis. Most likely a contaminant. Current Visit: Yes (3) CAD (coronary artery disease) Status: Acute Assessment and plan: Continue current management. No chest pain. Current Visit: Yes (4) Congestive heart failure Status: Acute Assessment and plan: Echo done. Diastolic with mild exacerbation. Current Visit: Yes (5) Hypertension Status: Acute Assessment and plan: Continue current management. Current Visit: Yes (6) Pneumonia Status: Acute Assessment and plan: Continue antibiotics. Current Visit: Yes Hospitalist: Subjective Interval history: No complaints. Exam - Constitutional Vitals: Period Temp Pulse Resp BP Sys/Alas Pulse Ox Last 24 Hr 97.5 F-98.8 F 86-101 18-22 119-151/65-80 91-98 General appearance: no acute distress - Head Head exam: Present: normocephalic, atraumatic - Eye Eye exam: Present: EOMI Pupils: Present: HANNA - ENT ENT exam: Present: normal exam - Neck Neck exam: Present: normal inspection - Respiratory Respiratory exam: Present: clear to auscultation bilaterally. Absent: rhonchi, wheezes - Cardiovascular Cardiovascular exam: Present: regular rate and rhythm. Absent: gallop, rubs, systolic murmur - GI/Abdominal GI/Abdominal exam: Present: normal bowel sounds, soft. Absent: distended, firm , guarding, tenderness, rebound - Extremities Exam Extremities exam: Present: normal inspection. Absent: calf tenderness, edema Results - Labs CBC & BMP: 04/06/17 04:31 04/06/17 04:31 Lab Results: I have reviewed the past 24 hour labs
[2017-04-06] MEDS: ACETAMINOPHEN 325 MG TABLET PO PRN (16:25)
[2017-04-06] MEDS: CARVEDILOL 6.25 MG TABLET PO SCH (16:26)
[2017-04-06] MEDS ORDERED: TUBERCULIN SKIN TEST 0.1 ML SYRINGE INTRADERM ONE (16:30)
[2017-04-06] MEDS: TEMAZEPAM 15 MG CAPSULE PO SCH (21:45)
[2017-04-07] MEDS: GABAPENTIN 600 MG TABLET PO SCH ×2 (07:55→17:16)
[2017-04-07] MEDS: PARoxetine 20 MG TABLET PO SCH ×2 (07:55→17:17)
[2017-04-07] MEDS: CARVEDILOL 12.5 MG TABLET PO SCH (07:55)
[2017-04-07] MEDS: TOPIRAMATE 25 MG TABLET PO SCH ×3 (07:56→17:16)
[2017-04-07] MEDS: PANTOPRAZOLE 40 MG TABLET PO SCH ×2 (07:57→17:16)
[2017-04-07] MEDS: ASPIRIN CHEW 81 MG TABLET PO SCH (08:00)
[2017-04-07] MEDS: NYSTATIN POWDER 15 GM BOTTLE TOP SCH ×2 (08:01→20:35)
--- NOTE | 2017-04-07 11:23 | Hospitalist Progress Note ---
Assessment and Plan - Time spent with patient Time spent with patient: Greater than 30 minutes (1) UTI (urinary tract infection) Status: Acute Assessment and plan: Continue antibiotics. Current Visit: Yes (2) Positive blood culture Status: Acute Assessment and plan: Strep mitis. Most likely a contaminant. Current Visit: Yes (3) CAD (coronary artery disease) Status: Acute Assessment and plan: Continue current management. No chest pain. Current Visit: Yes (4) Congestive heart failure Status: Acute Assessment and plan: Echo done. Diastolic with mild exacerbation. Current Visit: Yes (5) Hypertension Status: Acute Assessment and plan: Continue current management. Current Visit: Yes (6) Pneumonia Status: Acute Assessment and plan: Continue antibiotics. Current Visit: Yes Hospitalist: Subjective Interval history: No complaints overnight events. Spoke with family today. Exam - Constitutional Vitals: Period Temp Pulse Resp BP Sys/Alas Pulse Ox Last 24 Hr 97.7 F-98.8 F 74-107 20-20 119-161/51-70 89-97 General appearance: no acute distress - Head Head exam: Present: normocephalic, atraumatic - Eye Eye exam: Present: EOMI Pupils: Present: HANNA - ENT ENT exam: Present: normal exam - Neck Neck exam: Present: normal inspection - Respiratory Respiratory exam: Present: clear to auscultation bilaterally. Absent: rhonchi, wheezes - Cardiovascular Cardiovascular exam: Present: regular rate and rhythm. Absent: gallop, rubs, systolic murmur - GI/Abdominal GI/Abdominal exam: Present: normal bowel sounds, soft. Absent: distended, firm , guarding, tenderness, rebound - Extremities Exam Extremities exam: Present: normal inspection. Absent: calf tenderness, edema Results - Labs CBC & BMP: 04/06/17 04:31 04/06/17 04:31 Lab Results: I have reviewed the past 24 hour labs
[2017-04-07] MEDS: amLODIPine 5 MG TABLET PO SCH (12:44)
[2017-04-07] MEDS: ARIPiprazole 2 MG TABLET PO SCH (12:44)
[2017-04-07] MEDS: CLORAZEPATE 3.75 MG TABLET PO PRN (17:17)
[2017-04-07] MEDS: CARVEDILOL 6.25 MG TABLET PO SCH (17:17)
[2017-04-07] MEDS: TEMAZEPAM 15 MG CAPSULE PO SCH (20:34)
[2017-04-08 06:02] LABS: Basophils % 0.6 % (0.0-0.8); Eosinophils # 0.3 10*3/uL (0.0-0.87); Eosinophils % 4.3 % (0.00-10.9); Hematocrit 28.7 VOL% (35.7-47.0); Hemoglobin 8.4 GM/DL (12.0-16.0); Immature Granulocytes % 1.1 %; Immature Granulocytes Absolute 0.08 #; Lymphocytes # 1.6 10*3/uL (1.4-4.0); Lymphocytes % 22.5 % (21.3-54.2); Mean Corpuscular HGB Conc 29.3 GM/DL (32-36); Mean Corpuscular Hemoglobin 22 PG (27-34); Mean Corpuscular Volume 75.5 FL (87-102); Mean Platelet Volume 8.5 FL (9.6-12.0); Monocytes # 0.6 10*3/uL (0.11-0.8); Monocytes % 7.6 % (1.7-12.7); Neutrophils # 4.6 10*3/uL (1.4-7.4); Neutrophils % 63.9 % (38.7-73.9); Platelet Count 469 T/CUMM (130-400); White Blood Count 7.3 T/CUMM (4-12)
[2017-04-08 06:28] LABS: Calcium 8.1 MG/DL (8.5-10.1); Osmolality,Calculated 288.7 MOS/KG (273-304); Potassium 3.8 MMOL/L (3.5-5.1)
[2017-04-08] MEDS: PARoxetine 20 MG TABLET PO SCH ×2 (09:07→17:10)
[2017-04-08] MEDS: NYSTATIN POWDER 15 GM BOTTLE TOP SCH ×2 (09:08→21:10)
[2017-04-08] MEDS: CARVEDILOL 12.5 MG TABLET PO SCH (09:08)
[2017-04-08] MEDS: ASPIRIN CHEW 81 MG TABLET PO SCH (09:08)
[2017-04-08] MEDS: TOPIRAMATE 25 MG TABLET PO SCH ×3 (09:08→17:10)
[2017-04-08] MEDS: GABAPENTIN 600 MG TABLET PO SCH ×2 (09:08→17:09)
[2017-04-08] MEDS: PANTOPRAZOLE 40 MG TABLET PO SCH ×2 (09:08→17:09)
[2017-04-08] MEDS: LEVOFLOXACIN INJ 750 MG in PREMIX 1 EACH IV SCH (09:10)
[2017-04-08] MEDS: ARIPiprazole 2 MG TABLET PO SCH (12:30)
[2017-04-08] MEDS: amLODIPine 5 MG TABLET PO SCH (12:31)
[2017-04-08] MEDS ORDERED: PHENOL 1.4% THROAT SPRAY 177 ML BOTTLE PO PRN (14:31)
--- NOTE | 2017-04-08 14:31 | Hospitalist Progress Note ---
Assessment and Plan - Time spent with patient Time spent with patient: Greater than 30 minutes (1) UTI (urinary tract infection) Status: Acute Assessment and plan: Continue antibiotics. Current Visit: Yes (2) Positive blood culture Status: Acute Assessment and plan: Strep mitis. Most likely a contaminant. Current Visit: Yes (3) CAD (coronary artery disease) Status: Acute Assessment and plan: Continue current management. No chest pain. Current Visit: Yes (4) Congestive heart failure Status: Acute Assessment and plan: Echo done. Diastolic with mild exacerbation. Current Visit: Yes (5) Hypertension Status: Acute Assessment and plan: Continue current management. Current Visit: Yes (6) Pneumonia Status: Acute Assessment and plan: Continue antibiotics. Current Visit: Yes Hospitalist: Subjective Interval history: Patient states she feels awful when I asked her what she means by that she states she had a headache. Exam - Constitutional Vitals: Period Temp Pulse Resp BP Sys/Alas Pulse Ox Last 24 Hr 98.0 F-99.3 F 73-95 20-22 131-176/67-89 92-96 General appearance: no acute distress - Head Head exam: Present: normocephalic, atraumatic - Eye Eye exam: Present: EOMI Pupils: Present: HANNA - ENT ENT exam: Present: normal exam - Neck Neck exam: Present: normal inspection - Respiratory Respiratory exam: Present: clear to auscultation bilaterally. Absent: rhonchi, wheezes - Cardiovascular Cardiovascular exam: Present: regular rate and rhythm. Absent: gallop, rubs, systolic murmur - GI/Abdominal GI/Abdominal exam: Present: normal bowel sounds, soft. Absent: distended, firm , guarding, tenderness, rebound - Extremities Exam Extremities exam: Present: normal inspection. Absent: calf tenderness, edema Results - Labs CBC & BMP: 04/08/17 05:34 04/08/17 05:34 Lab Results: I have reviewed the past 24 hour labs
[2017-04-08] MEDS ORDERED: FUROSEMIDE 40 MG/4 ML VIAL IV ONE (14:42)
[2017-04-08] MEDS: ACETAMINOPHEN 325 MG TABLET PO PRN (17:09)
[2017-04-08] MEDS: CARVEDILOL 6.25 MG TABLET PO SCH (17:10)
[2017-04-08] MEDS: TEMAZEPAM 15 MG CAPSULE PO SCH (21:07)
[2017-04-09] MEDS: PARoxetine 20 MG TABLET PO SCH ×2 (08:47→16:31)
[2017-04-09] MEDS: GABAPENTIN 600 MG TABLET PO SCH ×2 (08:47→16:30)
[2017-04-09] MEDS: CARVEDILOL 12.5 MG TABLET PO SCH (08:47)
[2017-04-09] MEDS: TOPIRAMATE 25 MG TABLET PO SCH ×3 (08:47→16:31)
[2017-04-09] MEDS: NYSTATIN POWDER 15 GM BOTTLE TOP SCH ×2 (08:47→20:31)
[2017-04-09] MEDS: PANTOPRAZOLE 40 MG TABLET PO SCH ×2 (08:47→16:31)
--- NOTE | 2017-04-09 08:53 | XRay Report ---
History: Congestive heart failure. Coronary artery disease. Hypertension Date: 04/09/2017 Study: Chest x-ray AP portable Comparison exam: April 03, 2017 There is continued cardiomegaly. The mediastinal contours are unchanged. The pulmonary vasculature is upper normal. There is stable mild right sided pleural effusion. There is mild platelike subsegmental atelectasis in the right mid to lower lung similar to the previous study. There is improved aeration in the left lower lung. Osseous structures are similar. Impression: Cardiomegaly and borderline pulmonary venous hypertension appearance. Improved aeration in the left lung base. No gross interval worsening PROCEDURE INTERPRETED AT [facility] DEPARTMENT OF RADIOLOGY Final Report Signed by: Dr. Yoli Edwards
[2017-04-09] MEDS: LEVOFLOXACIN INJ 750 MG in PREMIX 1 EACH IV SCH (09:21)
[2017-04-09] MEDS: ASPIRIN CHEW 81 MG TABLET PO SCH (10:36)
[2017-04-09] MEDS: ACETAMINOPHEN 325 MG TABLET PO PRN (10:36)
[2017-04-09] MEDS: amLODIPine 5 MG TABLET PO SCH (11:42)
[2017-04-09] MEDS: ARIPiprazole 2 MG TABLET PO SCH (11:43)
--- NOTE | 2017-04-09 12:46 | Gastrointestinal Consult Note ---
Assessment and Plan (1) Dysphagia Status: Acute Assessment and plan: 04/09-reports of history of esophageal stricture in the past with dilation approximately a year ago. Unable to locate these records in facility database. Increased reports of dysphagia to solids, liquids, and pills. Will plan for EGD to further evaluate and possible dilation when respiratory status is improved. Plan an addendum to followed by Dr. Edwards. Current Visit: Yes History of Present Illness Chief complaint: Dysphagia History of present illness: Ms. Subramanian is a 87 year old female who presented to the hospital with reports of shortness of breath and coughing. Patient is a fair historian therefore information is obtained from patient and from chart review. Patient has a history of hypertension, CAD, neuropathy. She reports that over the last 3 weeks she has had a continued cough and increasingly shortness of breath. She also has had some complaints of the sore throat and fever along with this. She is noted to have slept in a recliner over the last several weeks due to her difficulty breathing. Upon admission she was found to have cardiomegaly with progressive edema/infiltrate/atelectasis and small pleural effusions. She was admitted and started on Levaquin for findings of pneumonia. She is reported since admission that she is having increased difficulty swallowing. She states that it has been approximately a year that the dysphagia has been going out it seems has worsened over the last several weeks. She reports having difficulty with solids, pills, and at times liquids. She denies any odynophagia other than the sore throat from her coughing. She denies any recent weight loss. Denies any melena or hematochezia. States she does have a history of reflux but this is fairly controlled on her Protonix. Denies any epigastric pain. She states that she has had esophageal dilation done in the past however unable to locate recent findings of this other than in the year 1999. She takes Protonix at home on a regular basis. Chest x-ray today shows improvement in the left lung base. She denies any NSAID use or anticoagulant use. Home Medications Medication Instructions Recorded Confirmed Type amLODIPine [Norvasc] 5 mg PO DAILY@05/23/15 04/02/17 History ARIPiprazole [Aripiprazole] 2 mg PO DAILY@04/02/17 04/02/17 History Carvedilol 6.25 mg PO DAILY W/SUPPER 04/02/17 04/02/17 History Carvedilol 12.5 mg PO DAILY W/BREAKFAST 04/02/17 04/02/17 History Clorazepate [Tranxene] 3.75 mg PO BID PRN 04/02/17 04/02/17 History Furosemide 20 mg PO DAILY@12 04/02/17 04/02/17 History Gabapentin 600 mg PO BID W/MEALS 04/02/17 04/02/17 History PARoxetine [Paxil] 20 mg PO BID W/MEALS 04/02/17 04/02/17 History Pantoprazole Tab [Protonix Tab] 40 mg PO BID W/MEALS 04/02/17 04/02/17 History Potassium Chloride 10 meq PO DAILY@12 04/02/17 04/02/17 History Temazepam 15 mg PO BEDTIME 04/02/17 04/02/17 History Topiramate 25 mg PO TID W/MEALS 04/02/17 04/02/17 History Aspirin Chew Tab 81 mg PO DAILY #0 tablet 04/06/17 Rx Levofloxacin Tab [Levaquin Tab] 500 mg PO DAILY #10 tablet 04/06/17 Rx Allergies Allergy/AdvReac Type Severity Reaction Status Date / Time cefuroxime [From Ceftin] Allergy ANAPHYLAXIS Verified 04/02/17 14:17 Amoxicillin [From Augmentin] AdvReac Nausea Verified 04/02/17 14:17 clarithromycin [From Biaxin] AdvReac Nausea Verified 04/02/17 14:17 clavulanic acid AdvReac Nausea Verified 04/02/17 14:17 [From Augmentin] codeine AdvReac Nausea Verified 04/02/17 14:17 hydrocodone [From Lortab] AdvReac Nausea Verified 04/02/17 14:17 levofloxacin [From Levaquin] AdvReac Nausea Verified 04/02/17 14:17 meperidine [From Demerol] AdvReac Nausea Verified 04/02/17 14:17 Medical,Surgical,& Family Hx - Medical History Cardio: History of: Hypertension Neurology: History of: Cerebrovascular Accident Endocrine: History of: Dyslipidemia, Thyroid Disorder Respiratory: History of: Pneumonia Genitourinary: History of: Recurring Urinary Tract Infections Musculoskeletal: History of: Musculoskeletal Problems (Arthritis) - Surgical History Reproductive Surgeries: Surgical HX of;: Hysterectomy - Family History Family History: Reports;: Family Hypertension (mother, father) Denies;: Family Cancer, Family Diabetes, Family Heart Disease, Family Hematology, Family Stroke (not sure) - Social History Smoking Status: Never smoker Frequency of Alcohol Use: None Type of Drug Use: None 12 point system: reviewed and no additional remarkable complaints except as stated - Constitutional Constitutional: Present: as per HPI - EENT Eyes: Present: as per HPI Ears: Present: as per HPI Nose, mouth and throat: Present: as per HPI, dysphagia - Cardiovascular Cardiovascular: Present: as per HPI, dyspnea - Respiratory Respiratory: Present: as per HPI, cough - Gastrointestinal Gastrointestinal: Present: as per HPI, dysphagia, heartburn - Genitourinary Genitourinary: Present: as per HPI - Musculoskeletal Musculoskeletal: Present: as per HPI - Neurological Neurological: Present: as per HPI - Psychiatric Psychiatric: Present: as per HPI - Endocrine Endocrine: Present: as per HPI - Hematologic/Lymphatic Hematologic/Lymphatic: Present: as per HPI Exam - Constitutional Vitals: Period Temp Pulse Resp BP Sys/Alas Pulse Ox Last 24 Hr 97.2 F-98.1 F 72-95 18-20 129-175/62-88 90-95 General appearance: normal weight, no acute distress - Head Head exam: Present: normal inspection, normocephalic - Eye Eye exam: Present: other (Lids and conjunctive are unremarkable). Absent: scleral icterus - ENT ENT exam: Present: normal exam, normal oropharynx - Neck Neck exam: Present: normal inspection - Respiratory Respiratory exam: Present: clear to auscultation bilaterally. Absent: rales, rhonchi, wheezes - Cardiovascular Cardiovascular exam: Present: regular rate and rhythm. Absent: diastolic murmur , JVD, systolic murmur - GI/Abdominal GI/Abdominal exam: Present: normal bowel sounds, soft. Absent: ascites, distended, mass, organomegaly, tenderness - Extremities Exam Extremities exam: Present: normal inspection, full ROM - Back Exam Back exam: Present: normal inspection - Neurological Exam Neurological exam: Present: alert, oriented X3 - Psychiatric Psychiatric exam: Present: normal affect, normal mood - Skin Skin exam: Present: normal color, warm, dry Results - Labs CBC & BMP: 04/08/17 05:34 04/08/17 05:34 Lab Results: I have reviewed the past 24 hour labs - Diagnostic Findings Procedure: Chest x-ray: report reviewed by me
[2017-04-09] MEDS: CLORAZEPATE 3.75 MG TABLET PO PRN (12:59)
--- NOTE | 2017-04-09 13:47 | Hospitalist Progress Note ---
Assessment and Plan - Time spent with patient Time spent with patient: Greater than 30 minutes (1) UTI (urinary tract infection) Status: Acute Assessment and plan: Continue antibiotics. Current Visit: Yes (2) Positive blood culture Status: Acute Assessment and plan: Strep mitis. Most likely a contaminant. Current Visit: Yes (3) CAD (coronary artery disease) Status: Acute Assessment and plan: Continue current management. No chest pain. Current Visit: Yes (4) Congestive heart failure Status: Acute Assessment and plan: Echo done. Diastolic with mild exacerbation. Current Visit: Yes (5) Hypertension Status: Acute Assessment and plan: Continue current management. Current Visit: Yes (6) Pneumonia Status: Acute Assessment and plan: Continue antibiotics. Current Visit: Yes (7) Dysphagia Status: Acute Assessment and plan: GI on board. Current Visit: Yes Hospitalist: Subjective Interval history: Complains of some dysphagia. Otherwise has no complaints and is ready to leave. Exam - Constitutional Vitals: Period Temp Pulse Resp BP Sys/Alas Pulse Ox Last 24 Hr 97.2 F-98.1 F 72-95 18-20 129-175/62-88 90-95 General appearance: no acute distress - Head Head exam: Present: normocephalic, atraumatic - Eye Eye exam: Present: EOMI Pupils: Present: HANNA - ENT ENT exam: Present: normal exam - Neck Neck exam: Present: normal inspection - Respiratory Respiratory exam: Present: clear to auscultation bilaterally. Absent: rhonchi, wheezes - Cardiovascular Cardiovascular exam: Present: regular rate and rhythm. Absent: gallop, rubs, systolic murmur - GI/Abdominal GI/Abdominal exam: Present: normal bowel sounds, soft. Absent: distended, firm , guarding, tenderness, rebound - Extremities Exam Extremities exam: Present: normal inspection. Absent: calf tenderness, edema Results - Labs CBC & BMP: 04/08/17 05:34 04/08/17 05:34 Lab Results: I have reviewed the past 24 hour labs
[2017-04-09] MEDS: CARVEDILOL 6.25 MG TABLET PO SCH (16:31)
[2017-04-09] MEDS: TEMAZEPAM 15 MG CAPSULE PO SCH (20:27)
[2017-04-10] MEDS: CLORAZEPATE 3.75 MG TABLET PO PRN (02:54)
[2017-04-10 07:14] LABS: Basophils % 0.3 % (0.0-0.8); Eosinophils # 0.2 10*3/uL (0.0-0.87); Eosinophils % 3.3 % (0.00-10.9); Hematocrit 30.5 VOL% (35.7-47.0); Hemoglobin 9.1 GM/DL (12.0-16.0); Immature Granulocytes % 0.6 %; Immature Granulocytes Absolute 0.04 #; Lymphocytes # 1.5 10*3/uL (1.4-4.0); Lymphocytes % 21.9 % (21.3-54.2); Mean Corpuscular HGB Conc 29.8 GM/DL (32-36); Mean Corpuscular Hemoglobin 23 PG (27-34); Mean Corpuscular Volume 75.5 FL (87-102); Mean Platelet Volume 8.4 FL (9.6-12.0); Monocytes # 0.6 10*3/uL (0.11-0.8); Monocytes % 8.4 % (1.7-12.7); Neutrophils # 4.5 10*3/uL (1.4-7.4); Neutrophils % 65.5 % (38.7-73.9); Platelet Count 540 T/CUMM (130-400); Red Blood Count 4.04 MC/CUMM (3.8-5.5); White Blood Count 6.9 T/CUMM (4-12)
[2017-04-10 07:47] LABS: Calcium 8.3 MG/DL (8.5-10.1); Osmolality,Calculated 290.6 MOS/KG (273-304); Potassium 3.9 MMOL/L (3.5-5.1)
[2017-04-10 08:03] VITALS: BP 160/90
[2017-04-10] MEDS: LEVOFLOXACIN INJ 750 MG in PREMIX 1 EACH IV SCH (08:04)
[2017-04-10] MEDS: GABAPENTIN 600 MG TABLET PO SCH (08:04)
[2017-04-10] MEDS: PANTOPRAZOLE 40 MG TABLET PO SCH (08:05)
[2017-04-10] MEDS: TOPIRAMATE 25 MG TABLET PO SCH (08:05)
[2017-04-10] MEDS: CARVEDILOL 12.5 MG TABLET PO SCH (08:05)
[2017-04-10] MEDS: PARoxetine 20 MG TABLET PO SCH (08:05)
[2017-04-10] MEDS: ASPIRIN CHEW 81 MG TABLET PO SCH (08:05)
[2017-04-10] MEDS: NYSTATIN POWDER 15 GM BOTTLE TOP SCH (08:05)
--- NOTE | 2017-04-10 08:18 | Case Mgmt Physician Query Form ---
TB Signs and Symptoms Screening ([place]) INSTRUCTIONS: To be completed annually on residents/staff with a significant Tuberculin Skin Test (TST) upon admission/hire or a prior significant TST. To be completed on all staff at hire. Please respond to each listed symptom with an (X) in either the "YES" or "NO" box. Do you currently have any of the following symptoms: YES NO ( ) (x ) A cough If yes, is it: ( ) Productive ( ) Non- productive ( ) (x ) Hemoptysis (spitting up blood) ( ) (x ) Chest pains ( ) (x ) Weight Loss ( ) ( x) Fever ( ) (x ) Night Sweats (x ) ( ) Weakness ( ) ( x) Loss of Appetite ( ) (x ) Difficulty Breathing If you answered YES" to any of the above questions, how long have symptoms been present? Comments: ERIC
== END 2017-04-10 11:16 | DRG 291 ==
LOC: EDBD → EDUNIT# → N.ED 10:15 → N.EDINP 11:58 → N.2E 12:40
PROVIDERS: ADMIT Internal Medicine; ATTEND Internal Medicine

== ENCOUNTER 2017-05-14 10:33 | Inpatient (IN) ==
--- NOTE | 2017-05-14 11:10 | XRay Report ---
Portable chest Date: 05/14/2017 Clinical history: Alteration of consciousness Comparison: 04/09/2017 Technique: Portable AP sitting chest Findings: Stable cardiomegaly with arterial calcifications. Progressive diffuse parenchymal findings in the right mid to lower lung zone and left lower lung zone. Larger moderate right and smaller pleural effusions. Osteopenia with degenerative changes. Impression: Progressive CHF/bilateral pneumonia with associated atelectasis and moderate right and small left pleural effusion. Follow-up chest x-ray is recommended document clearing and exclude additional underlying pathology. Osteopenia. PROCEDURE INTERPRETED AT [facility] DEPARTMENT OF RADIOLOGY Final Report Signed by: Dr. Rosa M Villanueva
--- NOTE | 2017-05-14 11:23 | CT Report ---
Referring physician: Timoteo Salmon Exam: CT brain without contrast Date: 05/14/2017 Comparison: 07/24/2016 Reason: Alteration of consciousness Technique: Axial images of the head were obtained without the use of contrast. Total DLP was 1033 mGy*cm. Findings: No hydrocephalus or midline shift is present. There is no evidence of an acute infarction, recent intracranial hemorrhage or abnormal mass effect. Persistent atrophy and cerebral hypodensities. 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 The osseous structures appear intact. The mastoid air cells and visualized paranasal sinuses are clear. Impression: No acute intracranial abnormality is identified. Persistent atrophy with microvascular disease and chronic infarcts. The CT exam was performed using one or more of the following dose reduction techniques: Automated exposure control and adjustment of the mA and/or kV according to patient size. PROCEDURE INTERPRETED AT [facility] DEPARTMENT OF RADIOLOGY Final Report Signed by: Dr. Rosa M Villanueva
[2017-05-14 11:30] LABS: Amorphous Crystals,Urine Few /HPF (Few); Apearance,Urine CLOUDY (Clear); Bilirubin,Urine Negative (Negative); Blood, Urine Small mg/dL (Negative); Glucose,Urine (UA) Negative (Negative); Ketones,Urine Negative (Negative); Mucus,Urine Occasional /LPF (Occasional); Nitrite,Urine Negative (Negative); Protein,Urine 30 MG/DL; RBC,Urine 17 /HPF (0-4); Squamous Epithelial Cell,Urine Occasional /HPF (0-10); Urine Color Yellow (Yellow); Urine Specific Gravity 1.013 (1.001-1.035); Urine Urobilinogen < 2.0 EU/DL (0.2-1.0); WBC,Urine 1 /HPF (0-6)
[2017-05-14] MEDS ORDERED: SODIUM CHLORIDE 0.9% 1,000 ML IV STA (11:32)
[2017-05-14 11:45] LABS: Basophils % 0.2 % (0.0-0.8); Eosinophils # 0.1 10*3/uL (0.0-0.87); Eosinophils % 0.7 % (0.00-10.9); Hemoglobin 10.8 GM/DL (12.0-16.0); Immature Granulocytes % 0.5 %; Immature Granulocytes Absolute 0.08 #; Lymphocytes # 1.3 10*3/uL (1.4-4.0); Lymphocytes % 8.8 % (21.3-54.2); Mean Corpuscular Hemoglobin 23 PG (27-34); Mean Corpuscular Volume 74.8 FL (87-102); Mean Platelet Volume 8.4 FL (9.6-12.0); Monocytes # 0.9 10*3/uL (0.11-0.8); Monocytes % 5.7 % (1.7-12.7); Neutrophils # 12.7 10*3/uL (1.4-7.4); Neutrophils % 84.1 % (38.7-73.9); Platelet Count 426 T/CUMM (130-400); Red Blood Count 4.81 MC/CUMM (3.8-5.5); Red Cell Distribution Width 17.9 % (9.3-17.3); White Blood Count 15.1 T/CUMM (4-12)
[2017-05-14 11:55] LABS: INR 1.1; PT Patient Result 11.5 SECS; Partial Thromboplastin Time 30.4 SECS (0-40)
--- NOTE | 2017-05-14 11:55 | EKG Report ---
Stationary ECG Study [facility] ER Test Date: 05/14/2017 11:53:46 AM Pat Name: RAJ RODAS Department: Room: Gender: F Clin Tech: : 1930 Requested by: Timoteo Serna Order Number: [id number] Reading MD: BEVERLY ABDUL Intervals [place] Rate: 105 P: 44 [place]: 181 QRS: -22 QRSD: 99 T: 74 QT: 358 QTc: 419 Interpretive Statements SINUS TACHYCARDIA LEFT AXIS DEVIATION NONSPECIFIC T-WAVE ABNORMALITY Electronically Signed On 05-14-17 16:33:32 CDT by BEVERLY ABDUL [email or web address]
--- NOTE | 2017-05-14 12:04 | Emergency Department Note ---
Akila Lewis Hilary, am scribing for, and in the presence of, Timoteo Salmon MD 11: 41. Viky Lewis James D, MD, personally performed the services described in this documentation, ascribed by Keena Wilburn in my presence, and it is both accurate and complete . Arrival - Arrival Chief Complaint: Altered Mental Status Stated Complaint: altered LOC ED Nursing Triage Note: Brought in per EMS from [facility] with c/o altered mental status onset this am. +shortness of breath. +subjective fever. Mode of Arrival: Stretcher Limitations: No Limitations Source: Patient, RN Notes Reviewed Time Seen by Provider: 05/14/17 10:50 - History of Present Illness HPI Narrative: Pt is a 87 y/o white female brought into the ED via EMS with c/o AMS which onset this morning. Pts family is in the room and states that she was living at [facility] then was at [place] for pneumonia and then sent to [facility] rehab. She reports dysuria, chest pain that radiates to her back, nausea and a cough. Pts family states that she hasn't been eating well, is in and out of AMS and has a PMHx of HTN and 3 strokes. No other complaints or problems stated in the ED. Onset (ago): hour(s) Consistency: intermittent Severity: moderate Severity scale (1-10): 3 Date of Last Menstrual Period: PM Allergies/Adverse Reactions: Allergies Allergy/AdvReac Type Severity Reaction Status Date / Time acetaminophen Allergy Unknown/Unable Verified 05/14/17 10:48 to obtain cefuroxime [From Ceftin] Allergy ANAPHYLAXIS Verified 04/02/17 14:17 Nisoldipine [From Sular] Allergy Unknown/Unable Verified 05/14/17 10:48 to obtain Quinolones Allergy Unknown/Unable Verified 05/14/17 10:48 to obtain Amoxicillin [From Augmentin] AdvReac Nausea Verified 04/02/17 14:17 clarithromycin [From Biaxin] AdvReac Nausea Verified 04/02/17 14:17 clavulanic acid AdvReac Nausea Verified 04/02/17 14:17 [From Augmentin] codeine AdvReac Nausea Verified 04/02/17 14:17 hydrocodone [From Lortab] AdvReac Nausea Verified 04/02/17 14:17 levofloxacin [From Levaquin] AdvReac Nausea Verified 04/02/17 14:17 meperidine [From Demerol] AdvReac Nausea Verified 04/02/17 14:17 Home Medications: Home Medications Medication Instructions Recorded Confirmed Type amLODIPine [Norvasc] 5 mg PO DAILY@12 05/23/15 04/02/17 History ARIPiprazole [Aripiprazole] 2 mg PO DAILY@12 04/02/17 04/02/17 History Carvedilol 6.25 mg PO DAILY W/SUPPER 04/02/17 04/02/17 History Carvedilol 12.5 mg PO DAILY W/BREAKFAST 04/02/17 04/02/17 History Clorazepate [Tranxene] 3.75 mg PO BID PRN 04/02/17 04/02/17 History Furosemide 20 mg PO DAILY@12 04/02/17 04/02/17 History Gabapentin 600 mg PO BID W/MEALS 04/02/17 04/02/17 History PARoxetine [Paxil] 20 mg PO BID W/MEALS 04/02/17 04/02/17 History Pantoprazole Tab [Protonix Tab] 40 mg PO BID W/MEALS 04/02/17 04/02/17 History Potassium Chloride 10 meq PO DAILY@12 04/02/17 04/02/17 History Temazepam 15 mg PO BEDTIME 04/02/17 04/02/17 History Topiramate 25 mg PO TID W/MEALS 04/02/17 04/02/17 History Aspirin Chew Tab 81 mg PO DAILY #0 tablet 04/06/17 Rx Levofloxacin Tab [Levaquin Tab] 500 mg PO DAILY #5 tablet 04/10/17 Rx Review of System - Review of System 12 point system: reviewed and no additional remarkable complaints except as stated - Review of System Constitutional: Present: fever Respiratory: Present: cough Cardiovascular: Present: chest pain Gastrointestinal: Present: nausea Genitourinary female: Present: dysuria Medical,Surgical,& Family Hx - Medical History Cardio: History of: CHF, CAD, Hypertension Psychological: History of: Depression Neurology: History of: Cerebrovascular Accident, Migraine Endocrine: History of: Dyslipidemia, Thyroid Disorder Respiratory: History of: Pneumonia Genitourinary: History of: Recurring Urinary Tract Infections Gastrointestinal: History of: GERD Musculoskeletal: History of: Musculoskeletal Problems (Arthritis) - Surgical History Cardiac Surgeries: Sugical HX of: Cardiac Catheterization Reproductive Surgeries: Surgical HX of;: Hysterectomy - Family History Family History: Reports;: Family Hypertension (mother, father) Denies;: Family Cancer, Family Diabetes, Family Heart Disease, Family Stroke (not sure) - Social History Smoking Status: Never smoker Frequency of Alcohol Use: None Type of Drug Use: None Exam Physical Examination: GENERAL: This is a well-nourished, well-developed in no apparent distress. Delirious. VITAL SIGNS: Temperature: 100.1 Pulse: 104L Respiratory: 28 Blood Pressure: 183/79 O2 Sat: 85 HEENT: Head is normocephalic and atraumatic. Pupils are equally round and reactive to light. Extraocular movement are intact. Oropharynx is benign with dry mucous membranes and dry mouth. NECK: Neck is soft and supple without tenderness. There are no masses. There is no lymphadenopathy. LUNGS: Lungs are clear to auscultation bilaterally. Chest rises symmetrically. There is no chest wall tenderness. CV: Heart is regular rate and rhythm without murmurs, rubs, or gallops. ABDOMEN: Abdomen is soft, non-tender to palpation. There are no abnormal masses palpated. There is no organomegaly. Bowel sounds are present and active. SKIN: Skin is warm and dry. No rash. EXTREMITIES: Patient has full range of motion without tenderness. There is no pedal edema. NEUROLOGIC: Awake, alert, and oriented x4. Cranial nerves II through XII are grossly intact. There are no motorsensory deficits. PSYCHIATRIC: Normal affect. Normal mood. Vital Signs: Vital Signs Temperature 100.1 F H 05/14/17 11:25 Pulse Rate 104 H 05/14/17 11:25 Respiratory Rate 28 H 05/14/17 11:25 Blood Pressure 183/79 05/14/17 11:25 O2 Sat by Pulse Oximetry 85 L 05/14/17 10:33 Course - Consultations Consultation #1: Discussed with Dr. Villalta. Patient will be seen by them in the emergency department. Patient will be taken to the Fire Prevention Inspector for EKOS placement. Time: 13:21 Procedures - ABG Interpretation ABG Interpretation 1 Interpretation: abnormal, other (acute resp failure) Results - Labs CBC & BMP: 05/14/17 11:39 05/14/17 11:39 Lab Results: I have reviewed the patients labs Labs: Laboratory Tests 05/14/17 11:21 Urine Color Yellow Urine Appearance Cloudy Urine Urobilinogen < 2.0 H Laboratory Tests 05/14/17 05/14/17 11:39 11:39 WBC 15.1 H RBC 4.81 Hgb 10.8 L Hct 36.0 MCV 74.8 L MCH 23 L MCHC 30.0 L RDW 17.9 H Plt Count 426 H MPV 8.4 L Neut % (Auto) 84.1 H Lymph % (Auto) 8.8 L Neut # (Auto) 12.7 H Lymph # (Auto) 1.3 L [place] # (Auto) 0.9 H INR 1.1 PT Patient/Control Mix 11.5 Circ Anticoag PTT 30.4 Laboratory Tests 05/14/17 12:23 ABG pH 7.446 ABG pCO2 28.9 L ABG pO2 47.1 L ABG HCO3 21.5 ABG Total CO2 18.0 L ABG O2 Saturation 81.7 L ABG Base Excess -3.2 L Laboratory Tests 05/14/17 11:39 INR 1.1 - EKG EKG results: interpreted by ERMD - Impressions EKG: Sinus tachycardia with a rate of 105, nonspecific ST-T wave changes, left axis deviation. - Diagnostic Findings Procedure: Chest x-ray: report reviewed by me, image reviewed by me ( Progressive CHF/bilateral pneumonia with associated atelectasis and moderate right and small left pleural effusion. Follow-up chest x-ray is recommended document clearing and exclude additional underlying pathology. Osteopenia. ), CT - chest: image reviewed by me, report reviewed by me (CT chest: Large saddle embolus with large right pleural effusion.), CT: report reviewed by me, image reviewed by me (HEAD: No acute intracranial abnormality is identified. Persistent atrophy with microvascular disease and chronic infarcts. ) Disposition Clinical Impression: Altered mental status, Recurrent right pleural effusion, Dyspnea, Acute respiratory failure, Pulmonary embolus Case discussed with: patient Disposition: Still a Patient Condition: Guarded Time of Disposition: 13:21
[2017-05-14 12:27] LABS: ABG Base Excess -3.2 MMOL/L (-2.5-2.5); ABG HCO3 21.5 MMOL/L (20-26); ABG Oxygen Saturation 81.7 % (95-100); ABG PCO2 28.9 MM HG (35-48); ABG PH 7.446 (7.35-7.45); ABG PO2 47.1 MM HG (80-95)
[2017-05-14 12:33] LABS: Ammonia < 10 UMOL/L (11-32)
[2017-05-14 12:36] LABS: Alanine Aminotransferase 14 U/L (13-56); Albumin 3.2 G/DL (3.4-5.0); Alkaline Phosphatase 105 U/L (45-117); Aspartate Amino Transferase 22 U/L (0-37); Blood Urea Nitrogen 17 MG/DL (7-18); Calcium 8.9 MG/DL (8.5-10.1); Glucose 97 MG/DL (74-106); Osmolality,Calculated 284.1 MOS/KG (273-304); Potassium 4.1 MMOL/L (3.5-5.1); Sodium 142 MMOL/L (136-145); Total Protein 7.1 G/DL (6.4-8.3); Troponin I Only < 0.015 NG/ML (0.00-0.045)
[2017-05-14] MEDS ORDERED: ENOXAPARIN 80 MG/0.8 ML SYRINGE SUBCUT STA (13:22)
--- NOTE | 2017-05-14 13:22 | CT Report ---
Exam: CT chest w con Date: 05/14/2017 12:48 PM Comparison: 03/20/2011 Indication: Shortness of breath Technique:[Sequential axial scans of the chest were obtained following the injection of 80 cc Omnipaque 350. Coronal and sagittal 2-D reconstructions were obtained. Total DLP: 481.90] Findings: The heart is enlarged with arterial calcifications and cardiac fat pads. No evidence of aortic dissection. Limited contrast in the pulmonary arteries. It appears that there is a saddle embolus at the origin of the right main and left main pulmonary arteries which extends peripherally into the more distal pulmonary arteries especially in the upper lobes. Larger 65 mm hiatal hernia with no significant change in size of the nodes in the mediastinum. Calcified nodes are identified. Prior cholecystectomy. 9 mm left adrenal nodule. Degenerative changes are noted. At the level of the eileen, the right pleural effusion measures 65 mm in depth. The left pleural effusion measures 3.8 mm in depth. Progressive diffuse parenchymal findings especially in the right lung with significant atelectasis of the right lower lobe. There is associated progressive right hilar density. Impression: Cardiomegaly with scans limited by motion artifact. Saddle embolus with limited contrast in the pulmonary arteries. 65 mm hiatal hernia, prior cholecystectomy, and 9 mm left adrenal nodule, probable adenoma. Moderately large right and very small left pleural effusions. Progressive parenchymal pathology which can be seen with infiltration/atelectasis. It is difficult to exclude additional underlying pathology especially at the level of the right hilum and follow-up is recommended as discussed with Dr. Salmon at 1:15 PM on 05/14/2017. Critical test results This CT exam was performed using one or more the following dose reduction techniques: Automated exposure control, adjustment of the MA and/or KV according to patient size, or use of iterative reconstruction technique. PROCEDURE INTERPRETED AT [facility] DEPARTMENT OF RADIOLOGY Final Report Signed by: Dr. Rosa M Villanueva
[2017-05-14] MEDS ORDERED: ENOXAPARIN 80 MG/0.8 ML SYRINGE SUBCUT ONE (13:31)
--- NOTE | 2017-05-14 13:57 | Cardiology Consult Note ---
Assessment and Plan - Time spent with patient Time spent with patient: Greater than 30 minutes (Film review, chart review, discussion with family and examination of the patient) (1) Acute respiratory failure with hypoxia Status: Acute Current Visit: Yes (2) Pleural effusion, right Status: Chronic Current Visit: Yes (3) Do not resuscitate Status: Acute Current Visit: Yes (4) Altered mental status Status: Acute Assessment and plan: Suspect due to hypoxemia PO2 was in the 40s on room air Current Visit: Yes (5) Pulmonary embolus Status: Acute Assessment and plan: The right ventricular cavity is enlarged. It is larger than the left and I suspect she would benefit from EKOS. She has impressive hypoxemia that only partially correctable 100% nonrebreather. We will get venous Doppler lower extremity and take for it because. She is essentially on Coumadin chronically at home but his INR is 1.1. Current Visit: Yes Qualifiers: Pulmonary embolism type: saddle (6) CAD (coronary artery disease) Status: Acute Current Visit: No Qualifiers: Coronary Disease-Associated Artery/Lesion type: [place] artery [place] vs. transplanted heart: [place] heart Associated angina: without angina Qualified Code(s): I25.10 - Atherosclerotic heart disease of [place] coronary artery without angina pectoris (7) Hypertension Status: Chronic Current Visit: No Qualifiers: Hypertension type: essential hypertension Qualified Code(s): I10 - Essential (primary) hypertension History of Present Illness - Data of Consult Patient: new to practice Consult date: 05/14/17 Requesting Physician: Timoteo Salmon Primary care physician: Eb Zhou - Consult Narrative Reason for consult: Pulmonary embolism History of present illness: Ms. Subramanian is a 87 year old female patient has recently been in the hospital with right pleural effusion and pneumonitis who also has stroke disease hypertension. The patient was brought from the [facility] today because of decreased level of consciousness and hypoxemia. She had a CT scan of the chest in the emergency room for a right pleural effusion and was noted that she had saddle pulmonary embolism and a large right pleural effusion. I was called to see if the patient was a candidate for EKOS. The patient's daughter and son-in-law were at the bedside. Her saturations are 100% nonrebreather were approximately 93% heart rate was 100 210 appear to be sinus tachycardia and her blood pressure was actually elevated at 153/70. She was moaning and complaining of discomfort and discomfort from the IVs being initiated in the care that she was receiving. I did a very quick bedside ultrasound with the ultrasound probe in the emergency room and it looks like her right ventricle is enlarged. The CT scan would suggest the right ventricle is 1-1.1 times the size left ventricle. The echo techs arrived for formal echo and on the apical four-chamber view you can see that the right ventricle at the base in the mid segments are dilated and the patient has an apical wink. The patient is a DO NOT RESUSCITATE the daughter says that she is power of field representative and the patient clearly wanted not to be on the respirator and have CPR or shocks. I discussed with her about the risks benefits and options concerning her pulmonary embolism it seems as though she likely would not tolerate an additional emboli and she has a right lower extremity that is significantly larger than the left and is warm to touch. The patient is on Coumadin and the daughter states she thinks this is from her strokes. Her INR is 1.1. The patient is increased risk for bleeding particularly given her large right pleural effusion I am suspicious that this may be associated with a pulmonary infarct however that is unknown. I discussed with the patient daughter and the patient and her son-in-law about the risk benefits and options including but not limited to from pulmonary hemorrhage or other bleeding site but the benefit of improvement of her pulmonary status and her right-sided failure with long-term sequelae were also discussed. The patient's daughter her power of field representative states that she wishes to proceed after hearing the risk benefits and options. I have contacted Dr. Pepe Brito is in the Shot Examiner and also arrange for the Shot Examiner to come get the patient for EKOS procedure. CC: - Home Medications and Allergies Home Medications: Home Medications Medication Instructions Recorded Confirmed Type amLODIPine [Norvasc] 5 mg PO DAILY@05/23/15 04/02/17 History ARIPiprazole [Aripiprazole] 2 mg PO DAILY@04/02/17 04/02/17 History Carvedilol 6.25 mg PO DAILY W/SUPPER 04/02/17 04/02/17 History Carvedilol 12.5 mg PO DAILY W/BREAKFAST 04/02/17 04/02/17 History Clorazepate [Tranxene] 3.75 mg PO BID PRN 04/02/17 04/02/17 History Furosemide 20 mg PO DAILY@12 04/02/17 04/02/17 History Gabapentin 600 mg PO BID W/MEALS 04/02/17 04/02/17 History PARoxetine [Paxil] 20 mg PO BID W/MEALS 04/02/17 04/02/17 History Pantoprazole Tab [Protonix Tab] 40 mg PO BID W/MEALS 04/02/17 04/02/17 History Potassium Chloride 10 meq PO DAILY@12 04/02/17 04/02/17 History Temazepam 15 mg PO BEDTIME 04/02/17 04/02/17 History Topiramate 25 mg PO TID W/MEALS 04/02/17 04/02/17 History Aspirin Chew Tab 81 mg PO DAILY #0 tablet 04/06/17 Rx Levofloxacin Tab [Levaquin Tab] 500 mg PO DAILY #5 tablet 04/10/17 Rx Allergies/Adverse Reactions: Allergies Allergy/AdvReac Type Severity Reaction Status Date / Time acetaminophen Allergy Unknown/Unable Verified 05/14/17 10:48 to obtain cefuroxime [From Ceftin] Allergy ANAPHYLAXIS Verified 04/02/17 14:17 Nisoldipine [From Sular] Allergy Unknown/Unable Verified 05/14/17 10:48 to obtain Quinolones Allergy Unknown/Unable Verified 05/14/17 10:48 to obtain Amoxicillin [From Augmentin] AdvReac Nausea Verified 04/02/17 14:17 clarithromycin [From Biaxin] AdvReac Nausea Verified 04/02/17 14:17 clavulanic acid AdvReac Nausea Verified 04/02/17 14:17 [From Augmentin] codeine AdvReac Nausea Verified 04/02/17 14:17 hydrocodone [From Lortab] AdvReac Nausea Verified 04/02/17 14:17 levofloxacin [From Levaquin] AdvReac Nausea Verified 04/02/17 14:17 meperidine [From Demerol] AdvReac Nausea Verified 04/02/17 14:17 - Constitutional Constitutional: Present: fever(s). Absent: anorexia, chills, weight loss - EENT Eyes: Absent: blurry vision, diplopia Nose, mouth and throat: Absent: dysphagia, lip swelling - Cardiovascular Cardiovascular: Present: dyspnea (And associated decrease SATS) - Respiratory Respiratory: Present: dyspnea - Gastrointestinal Gastrointestinal: Absent: abdominal pain, dyspepsia - Genitourinary Genitourinary: Absent: abnormal vaginal bleeding, flank pain - Musculoskeletal Musculoskeletal: Present: arthralgias, joint swelling - Neurological Neurological: Absent: disequilibrium - Psychiatric Psychiatric: Present: other (altered level of consciousness) - Endocrine Endocrine: Absent: cold intolerance, heat intolerance - Hematologic/Lymphatic Hematologic/Lymphatic: Present: easy bleeding, easy bruising Medical,Surgical,& Family Hx - Medical History Cardio: History of: CAD (PCI of the left circumflex [place] [address] Gonsales), Hypertension Psychological: History of: Depression Neurology: History of: Cerebrovascular Accident, Migraine Endocrine: History of: Dyslipidemia, Thyroid Disorder Respiratory: History of: Pneumonia Genitourinary: History of: Recurring Urinary Tract Infections Gastrointestinal: History of: GERD Musculoskeletal: History of: Musculoskeletal Problems (Arthritis) - Surgical History Cardiac Surgeries: Sugical HX of: Cardiac Catheterization Reproductive Surgeries: Surgical HX of;: Hysterectomy - Family History Family History: Reports;: Family Hypertension (mother, father) Denies;: Family Cancer, Family Diabetes, Family Heart Disease, Family Stroke (not sure) - Social History Smoking Status: Never smoker Frequency of Alcohol Use: None Type of Drug Use: None Marital Status: Lives With:: [facility] Physical Examination Vital Signs Temp Pulse Resp BP Pulse Ox 100.1 F H 104 H 28 H 183/79 85 L 05/14/17 10:33 05/14/17 10:33 05/14/17 10:33 05/14/17 10:33 05/14/17 10:33 General: Present: Other (Patient is in moderate distress respiratory distress primarily she is also in significant amount of discomfort) HEENT: Present: Normocephaly, Mucus Membranes Moist Neck: Present: Supple Neck Cardiac: Present: Reg Rate and Rhythm (Tones are quiet no significant murmurs auscultated), S1/S2 Lungs: Present: Normal Exam (Poor inspiratory effort she has shallow tachypnea dullness in the right base with decreased breath sound) Neuro: Present: Cranial Nerve 2-12 Intact Abdomen: Present: Soft, Active Bowel Sounds Skin: Present: Other (Mild erythema in the right lower extremity) Extremities: Present: +2 Edema (Unilateral edema on the right tenderness to palpation) Result/EKG - Labs CBC & BMP: 05/14/17 11:39 05/14/17 11:39 Labs: Laboratory Results - last 24 hr 05/14/17 05/14/17 05/14/17 11:21 11:39 11:39 WBC 15.1 H RBC 4.81 Hgb 10.8 L Hct 36.0 MCV 74.8 L MCH 23 L MCHC 30.0 L RDW 17.9 H Plt Count 426 H MPV 8.4 L Neut % (Auto) 84.1 H Lymph % (Auto) 8.8 L [place] % (Auto) 5.7 Eos % (Auto) 0.7 Baso % (Auto) 0.2 Neut # (Auto) 12.7 H Lymph # (Auto) 1.3 L [place] # (Auto) 0.9 H Eos # (Auto) 0.1 Baso # (Auto) 0.0 Immature Gran % 0.5 Nucleated RBC % 0.0 Immature Gran # 0.08 Nucleated RBCs # 0.00 INR 1.1 PT Patient/Control Mix 11.5 Circ Anticoag PTT 30.4 ABG pH ABG pCO2 ABG pO2 ABG HCO3 ABG Total CO2 ABG O2 Saturation ABG Base Excess Sodium Potassium Chloride Carbon Dioxide Anion Gap BUN Creatinine GFR Calculation BUN/Creatinine Ratio Glucose Calculated Osmolality Lactic Acid Calcium Total Bilirubin AST ALT Alkaline Phosphatase Ammonia Troponin I Total Protein Albumin Globulin Albumin/Globulin Ratio TSH 3rd Generation Urine Color Yellow Urine Appearance Cloudy Urine pH 8.0 Ur Specific [place] 1.013 Urine Protein 30 Urine Glucose (UA) Negative Urine Ketones Negative Urine Blood Small Urine Nitrate Negative Urine Bilirubin Negative Urine Urobilinogen < 2.0 H Urine Leukocytes Negative Urine RBC 17 Urine WBC 1 Ur Squamous Epith Cells Occasional Amorphous Crystals Few Urine Mucus Occasional Ur Culture Indicated? Not indicated 05/14/17 05/14/17 05/14/17 11:39 11:42 12:23 WBC RBC Hgb Hct MCV MCH MCHC RDW Plt Count MPV Neut % (Auto) Lymph % (Auto) [place] % (Auto) Eos % (Auto) Baso % (Auto) Neut # (Auto) Lymph # (Auto) [place] # (Auto) Eos # (Auto) Baso # (Auto) Immature Gran % Nucleated RBC % Immature Gran # Nucleated RBCs # INR PT Patient/Control Mix Circ Anticoag PTT ABG pH 7.446 ABG pCO2 28.9 L ABG pO2 47.1 L ABG HCO3 21.5 ABG Total CO2 18.0 L ABG O2 Saturation 81.7 L ABG Base Excess -3.2 L Sodium 142 Potassium 4.1 Chloride 109 H Carbon Dioxide 23 Anion Gap 14.1 BUN 17 Creatinine 0.90 GFR Calculation 58 BUN/Creatinine Ratio 18.00 Glucose 97 Calculated Osmolality 284.1 Lactic Acid 1.3 Calcium 8.9 Total Bilirubin 0.60 AST 22 ALT 14 Alkaline Phosphatase 105 Ammonia < 10 L Troponin I < 0.015 Total Protein 7.1 Albumin 3.2 L Globulin 3.9 H Albumin/Globulin Ratio 0.8 L TSH 3rd Generation 2.490 Urine Color Urine Appearance Urine pH Ur Specific [place] Urine Protein Urine Glucose (UA) Urine Ketones Urine Blood Urine Nitrate Urine Bilirubin Urine Urobilinogen Urine Leukocytes Urine RBC Urine WBC Ur Squamous Epith Cells Amorphous Crystals Urine Mucus Ur Culture Indicated? - EKG EKG results: interpreted by me (Sinus tach with no acute changes)
[2017-05-14] MEDS ORDERED: LIDOCAINE 1% 20 ML VIAL ONE (14:33)
[2017-05-14] MEDS ORDERED: HEPARIN/NACL 0.9% 2 UNITS/ML 1,000 ML IV ONE (14:33)
[2017-05-14] MEDS ORDERED: MIDAZOLAM 2 MG/2 ML VIAL ONE (14:37)
[2017-05-14] MEDS ORDERED: ALTEPLASE 2 MG VIAL ONE (14:50)
--- NOTE | 2017-05-14 15:23 | Cardiology Operative Report ---
Date of Procedure:: 05/14/17 Pre-op diagnosis: Submassive pulmonary embolus with evidence of cor pulmonale Post-op diagnosis: same Procedure: The patient presented with submassive pulmonary embolus with evidence of cor pulmonale. She was taken to the catheterization lab for Ekos catheter placement for treatment of pulmonary embolus. After informed consent was obtained we accessed the right femoral vein using modified Seldinger technique and placed a J-tipped wire. We repeated this with a second wire. We then placed 2 6 [place] sheaths into the right femoral vein. Using a multipurpose catheter we directed a J-tip guidewire into the left pulmonary artery. We then placed the EKos catheter in this location without difficulty. We then used a combination of the multipurpose catheter and a angled pigtail catheter to position the J-tipped wire into the right pulmonary artery. We then placed a EKos catheter in this location without difficulty. After the catheters were connected, thrombolytic infusion was started. The catheters were sutured in place and a dressing was placed over the operative site. Patient remained stable throughout the procedure will be transferred to the CCU for postintervention monitoring and management. Anesthesia: minimal conscious sedation Surgeon / Physician: Pepe Brito Estimated blood loss: minimal Condition: stable Disposition: ICU/CCU
[2017-05-14] MEDS ORDERED: SODIUM CHLORIDE 0.9% 1,000 ML IV SCH ×2 (15:30)
[2017-05-14] MEDS ORDERED: HEPARIN DRIP 25,000 UNITS/500 ML PREMIX IV SCH (15:30)
[2017-05-14] MEDS: ALTEPLASE 6 MG in SODIUM CHLORIDE 0.9% 120 ML INTRACATH SCH ×2 (15:31→21:09)
--- NOTE | 2017-05-14 15:35 | ECHO Report ---
Emily Subramanian Exam Date: 05/14/2017 14:07 Referring Physician: Technologist: Estrellita Bergman Age: 87 Ht (in): 64 Wt (lb): 155 Gender: F Exam Location: [facility] Echo Indications: Saddle Embolus pulmonary artery, Seen on CT BP: 183 / 79 HR: 104 Rhythm: tachycardia Technical Quality: Average IMPRESSIONS Left ventricular ejection fraction is estimated at 70 % with resting tachycardia Tricuspid regurgitation velocities suggest a RVSP of 56 mmHg plus the right atrial pressure. Mild concentric left ventricular hypertrophy with diastolic dysfunction. Mild aortic insufficiency Despite the measurements below, the right ventricular cavity is slightly enlarged at the base and mid segments. The apex demonstrates an "apical wink." MEASUREMENTS (Male / Female) Normal Values 2D ECHO LV Diastolic Diameter PLAX 3.9 cm 4.2 - 5.9 / 3.9 - 5.3 cm LV Systolic Diameter PLAX 1.9 cm LV Fractional Shortening PLAX 50.6 % IVS Diastolic Thickness 1.2 cm 0.6 - 1.0 / 0.6 - 0.9 cm LVPW Diastolic Thickness 1.1 cm 0.6 - 1.0 / 0.6 - 0.9 cm RV Internal Dim ED PLAX 2.6 cm Aortic Root Diameter 2.7 cm LA Systolic Diameter LX 3.6 cm 3.0 - 4.0 / 2.7 - 3.8 cm DOPPLER TR Peak Velocity 375.0 cm/s TR Peak Gradient 56.3 mmHg FINDINGS Left Ventricle Mild concentric left ventricular hypertrophy with diastolic dysfunction that is not completely delineated. Hyperdynamic left ventricular systolic function. Left ventricular ejection fraction is estimated at 70 %. Right Ventricle Normal right ventricular size. Right Atrium Normal right atrial size. Left Atrium Normal left atrial size. Mitral Valve Mild mitral valve sclerosis. Aortic Valve Mild aortic valve sclerosis. Mild aortic valve regurgitation. Tricuspid Valve Morphologically normal tricuspid valve. Moderate tricuspid valve regurgitation. Tricuspid regurgitation velocities suggest a RVSP of 56 mmHg. Pulmonic Valve Pulmonic valve not well visualized. Pericardium No pericardial effusion. Aorta Normal size aortic root and proximal ascending aorta. Yessy Villalta (Electronically Signed) Final Date: 14 May 2017 15:34
[2017-05-14] MEDS ORDERED: ALBUTEROL 2.5 MG/3 ML NEB RESP TX PRN (16:31)
[2017-05-14] MEDS ORDERED: ZALEPLON 5 MG CAPSULE PO PRN (16:31)
[2017-05-14] MEDS ORDERED: LACTULOSE 20 GM/30 ML UDCUP PO PRN (16:31)
[2017-05-14] MEDS ORDERED: BISACODYL 5 MG TABLET PO PRN (16:31)
--- NOTE | 2017-05-14 16:52 | Hospitalist History & Physical ---
<Deny Stark - Last Filed: 05/14/17 17:23> Assessment and Plan (1) Pulmonary embolus Status: Acute Assessment and plan: Chest CT revealed saddle embolus. Cardiology consulted. Pt. to be taken for EKOS procedure emergently. Current Visit: Yes Qualifiers: Pulmonary embolism type: saddle (2) Acute respiratory failure Status: Acute Assessment and plan: Admit to CCU for close monitoring. ABGs obtained. We will repeat in a.m. Current Visit: Yes (3) Altered mental status Status: Acute Assessment and plan: AMS presumed to be secondary to respiratory distress. Will correct underlying problem and reevaluate. Current Visit: Yes History of Present Illness History of present illness: Ms. Subramanian is a 87 year old white female with a history of CHF, CAD, hypertension , depression, CVA, migraines, dyslipidemia, thyroid disorder, pneumonia, arthritis, and GERD presented to the ED today, slightly short of breath and slightly altered mentally. The patient is a resident at [facility] rehab after being hospitalized in March for treatment of pneumonia and UTI. Patient's daughter is present at the bedside and provides information. She reports a steady decline in the patient's condition after her hospitalization in March. Before that time patient was independent and lived at altered gait. Patient's is visibly in distress on examination the ED. CT in ED showed a saddle embolus she was taking immediately because by Dr. Brito. She was also found to have bilateral pleural effusions. Patient will be admitted to the hospitalist service for further evaluation and treatment. Patient will be closely monitored in the CCU. Home Medications Medication Instructions Recorded Confirmed Type amLODIPine [Norvasc] 5 mg PO DAILY@05/23/15 04/02/17 History ARIPiprazole [Aripiprazole] 2 mg PO DAILY@04/02/17 04/02/17 History Carvedilol 6.25 mg PO DAILY W/SUPPER 04/02/17 04/02/17 History Carvedilol 12.5 mg PO DAILY W/BREAKFAST 04/02/17 04/02/17 History Clorazepate [Tranxene] 3.75 mg PO BID PRN 04/02/17 04/02/17 History Furosemide 20 mg PO DAILY@04/02/17 04/02/17 History Gabapentin 600 mg PO BID W/MEALS 04/02/17 04/02/17 History PARoxetine [Paxil] 20 mg PO BID W/MEALS 04/02/17 04/02/17 History Pantoprazole Tab [Protonix Tab] 40 mg PO BID W/MEALS 04/02/17 04/02/17 History Potassium Chloride 10 meq PO DAILY@12 04/02/17 04/02/17 History Temazepam 15 mg PO BEDTIME 04/02/17 04/02/17 History Topiramate 25 mg PO TID W/MEALS 04/02/17 04/02/17 History Aspirin Chew Tab 81 mg PO DAILY #0 tablet 04/06/17 Rx Levofloxacin Tab [Levaquin Tab] 500 mg PO DAILY #5 tablet 04/10/17 Rx Allergies Allergy/AdvReac Type Severity Reaction Status Date / Time acetaminophen Allergy Unknown/Unable Verified 05/14/17 10:48 to obtain cefuroxime [From Ceftin] Allergy ANAPHYLAXIS Verified 04/02/17 14:17 Nisoldipine [From Sular] Allergy Unknown/Unable Verified 05/14/17 10:48 to obtain Quinolones Allergy Unknown/Unable Verified 05/14/17 10:48 to obtain Amoxicillin [From Augmentin] AdvReac Nausea Verified 04/02/17 14:17 clarithromycin [From Biaxin] AdvReac Nausea Verified 04/02/17 14:17 clavulanic acid AdvReac Nausea Verified 04/02/17 14:17 [From Augmentin] codeine AdvReac Nausea Verified 04/02/17 14:17 hydrocodone [From Lortab] AdvReac Nausea Verified 04/02/17 14:17 levofloxacin [From Levaquin] AdvReac Nausea Verified 04/02/17 14:17 meperidine [From Demerol] AdvReac Nausea Verified 04/02/17 14:17 ROS unobtainable: due to delirium Exam - Constitutional Vitals: Period Temp Pulse Resp BP Sys/Alas Pulse Ox Last 24 Hr 100.1 F-100.1 F 104-104 24-28 183-183/79-79 85 - Respiratory Respiratory exam: Present: decreased breath sounds. Absent: wheezes - Cardiovascular Cardiovascular exam: Present: tachycardia - GI/Abdominal GI/Abdominal exam: Present: normal bowel sounds, soft - Extremities Exam Extremities exam: Present: normal capillary refill, other (warmth noted to bilateral lower extremities) - Neurological Exam Neurological exam: Present: altered - Psychiatric Psychiatric exam: Present: agitated, anxious - Skin Skin exam: Present: normal color, warm Results - Labs CBC & BMP: 05/14/17 11:39 05/14/17 11:39 Lab Results: I have reviewed the past 24 hour labs <Mera Lou - Last Filed: 05/14/17 17:46> Assessment and Plan (1) Pulmonary embolus Status: Acute Assessment and plan: managment per cardiology, will start eliquis in am when okay with cards Current Visit: Yes Qualifiers: Pulmonary embolism type: saddle (2) Hypertension Status: Chronic Assessment and plan: coreg 12.5 mg po bid, lasix Current Visit: No Qualifiers: Hypertension type: essential hypertension Qualified Code(s): I10 - Essential (primary) hypertension (3) Acute respiratory failure with hypoxia Status: Acute Assessment and plan: due to saddle embolus Current Visit: Yes (4) Pleural effusion, right Status: Chronic Assessment and plan: bilateral worse on right, would be too high risk for tap right now, will have to defer till later, cont lasix Current Visit: Yes (5) Do not resuscitate Status: Acute Assessment and plan: verified with daughter in [place]. Current Visit: Yes History of Present Illness Chief complaint: sob History of present illness: Ms. Subramanian is a 87 year old female currently at [facility] for rehab after discharge from the hospital on April 10 for treatment of pneumonia and UTI. Patient doing well until today. Patient developed sudden onset of SOB. Chest ct showed a saddle embolus and she was taken immediately for EKOS by Dr. Brito. She has bilateral pleural effusions worse on right moderate. Medical,Surgical,& Family Hx - Medical History Cardio: History of: CHF, CAD, Hypertension Psychological: History of: Depression Neurology: History of: Cerebrovascular Accident, Migraine Endocrine: History of: Dyslipidemia, Thyroid Disorder Respiratory: History of: Pneumonia Genitourinary: History of: Recurring Urinary Tract Infections Gastrointestinal: History of: GERD Musculoskeletal: History of: Musculoskeletal Problems (Arthritis) - Surgical History Cardiac Surgeries: Sugical HX of: Cardiac Catheterization Reproductive Surgeries: Surgical HX of;: Hysterectomy - Family History Family History: Reports;: Family Hypertension (mother, father) Denies;: Family Cancer, Family Diabetes, Family Heart Disease, Family Stroke (not sure) - Social History Smoking Status: Never smoker Frequency of Alcohol Use: None Type of Drug Use: None Marital Status: Lives With:: rehab at [facility] Functional capacity: uses cane/walker ROS unobtainable: due to delirium - Respiratory Respiratory: Present: cough, dyspnea, dyspnea on exertion Exam - Constitutional Vitals: Period Temp Pulse Resp BP Sys/Alas Pulse Ox Last 24 Hr 100.1 F-100.1 F 104-104 24-28 183-183/79-79 85 General appearance: severe distress, over weight - Head Head exam: Present: normal inspection, normocephalic - Eye Eye exam: Present: EOMI. Absent: scleral icterus Pupils: Present: HANNA, normal accommodation - ENT ENT exam: Present: normal exam, normal external ear exam - Neck Neck exam: Absent: lymphadenopathy, thyromegaly - Respiratory Respiratory exam: Present: decreased breath sounds. Absent: rhonchi, wheezes - Cardiovascular Cardiovascular exam: Present: tachycardia - GI/Abdominal GI/Abdominal exam: Present: normal bowel sounds, soft. Absent: tenderness - Extremities Exam Extremities exam: Present: normal capillary refill, edema - Neurological Exam Neurological exam: Present: altered - Psychiatric Psychiatric exam: Present: agitated, anxious - Skin Skin exam: Present: normal color, warm Results - Labs CBC & BMP: 05/14/17 11:39 05/14/17 11:39 Lab Results: I have reviewed the past 24 hour labs - Diagnostic Findings Procedure: Chest x-ray: report reviewed by me (chf ), CT - chest: report reviewed by me (saddle embolus, with right and left pleural effusions worse on right ), CT: report reviewed by me (head ct nothing acute ), Ultrasound: report reviewed by me (echo ef 70% with pul htn )
--- NOTE | 2017-05-14 16:59 | Hospitalist History & Physical ---
Assessment and Plan (1) Acute respiratory failure Status: Acute Current Visit: Yes (2) Altered mental status Status: Acute Current Visit: Yes (3) Pulmonary embolus Status: Acute Current Visit: Yes Qualifiers: Pulmonary embolism type: saddle History of Present Illness History of present illness: Ms. Subramanian is a 87 year old female Home Medications Medication Instructions Recorded Confirmed Type amLODIPine [Norvasc] 5 mg PO DAILY@05/23/15 04/02/17 History ARIPiprazole [Aripiprazole] 2 mg PO DAILY@04/02/17 04/02/17 History Carvedilol 6.25 mg PO DAILY W/SUPPER 04/02/17 04/02/17 History Carvedilol 12.5 mg PO DAILY W/BREAKFAST 04/02/17 04/02/17 History Clorazepate [Tranxene] 3.75 mg PO BID PRN 04/02/17 04/02/17 History Furosemide 20 mg PO DAILY@04/02/17 04/02/17 History Gabapentin 600 mg PO BID W/MEALS 04/02/17 04/02/17 History PARoxetine [Paxil] 20 mg PO BID W/MEALS 04/02/17 04/02/17 History Pantoprazole Tab [Protonix Tab] 40 mg PO BID W/MEALS 04/02/17 04/02/17 History Potassium Chloride 10 meq PO DAILY@04/02/17 04/02/17 History Temazepam 15 mg PO BEDTIME 04/02/17 04/02/17 History Topiramate 25 mg PO TID W/MEALS 04/02/17 04/02/17 History Aspirin Chew Tab 81 mg PO DAILY #0 tablet 04/06/17 Rx Levofloxacin Tab [Levaquin Tab] 500 mg PO DAILY #5 tablet 04/10/17 Rx Allergies Allergy/AdvReac Type Severity Reaction Status Date / Time acetaminophen Allergy Unknown/Unable Verified 05/14/17 10:48 to obtain cefuroxime [From Ceftin] Allergy ANAPHYLAXIS Verified 04/02/17 14:17 Nisoldipine [From Sular] Allergy Unknown/Unable Verified 05/14/17 10:48 to obtain Quinolones Allergy Unknown/Unable Verified 05/14/17 10:48 to obtain Amoxicillin [From Augmentin] AdvReac Nausea Verified 04/02/17 14:17 clarithromycin [From Biaxin] AdvReac Nausea Verified 04/02/17 14:17 clavulanic acid AdvReac Nausea Verified 04/02/17 14:17 [From Augmentin] codeine AdvReac Nausea Verified 04/02/17 14:17 hydrocodone [From Lortab] AdvReac Nausea Verified 04/02/17 14:17 levofloxacin [From Levaquin] AdvReac Nausea Verified 04/02/17 14:17 meperidine [From Demerol] AdvReac Nausea Verified 04/02/17 14:17 Medical,Surgical,& Family Hx - Medical History Cardio: History of: CHF, CAD, Hypertension Psychological: History of: Depression Neurology: History of: Cerebrovascular Accident, Migraine Endocrine: History of: Dyslipidemia, Thyroid Disorder Respiratory: History of: Pneumonia Genitourinary: History of: Recurring Urinary Tract Infections Gastrointestinal: History of: GERD Musculoskeletal: History of: Musculoskeletal Problems (Arthritis) - Surgical History Cardiac Surgeries: Sugical HX of: Cardiac Catheterization Reproductive Surgeries: Surgical HX of;: Hysterectomy - Family History Family History: Reports;: Family Hypertension (mother, father) Denies;: Family Cancer, Family Diabetes, Family Heart Disease, Family Stroke (not sure) - Social History Smoking Status: Never smoker Frequency of Alcohol Use: None Type of Drug Use: None Exam - Constitutional Vitals: Period Temp Pulse Resp BP Sys/Alas Pulse Ox Last 24 Hr 100.1 F-100.1 F 104-104 24-28 183-183/79-79 85 Results - Labs CBC & BMP: 05/14/17 11:39 05/14/17 11:39
[2017-05-14] MEDS ORDERED: FUROSEMIDE 40 MG/4 ML VIAL IV SCH (18:00)
[2017-05-14] MEDS: PARoxetine 20 MG TABLET PO SCH (18:26)
[2017-05-14] MEDS: CLINDAMYCIN INJ 600 MG in PREMIX 1 EACH IV SCH (18:26)
[2017-05-14] MEDS: PANTOPRAZOLE 40 MG VIAL IV SCH (18:26)
[2017-05-14] MEDS: TOPIRAMATE 25 MG TABLET PO SCH (18:26)
[2017-05-14] MEDS: GABAPENTIN 600 MG TABLET PO SCH (18:26)
[2017-05-14] MEDS: LEVOFLOXACIN INJ 750 MG in PREMIX 1 EACH IV SCH (19:30)
[2017-05-14] MEDS: HEPARIN DRIP 25,000 UNITS/500 ML PREMIX IV SCH (19:32)
[2017-05-14] MEDS ORDERED: MORPHINE 2 MG/1 ML SYRINGE IV ONE (19:35)
[2017-05-14] MEDS ORDERED: MORPHINE 2 MG/1 ML SYRINGE ONE (19:36)
[2017-05-14 20:16] LABS: Apearance,Urine CLEAR (Clear); Bilirubin,Urine Negative (Negative); Blood, Urine Moderate mg/dL (Negative); Glucose,Urine (UA) Negative (Negative); Ketones,Urine 5 mg/dL (Negative); Nitrite,Urine Negative (Negative); Protein,Urine 30 MG/DL; RBC,Urine 21 /HPF (0-4); Squamous Epithelial Cell,Urine Occasional /HPF (0-10); Urine Color Yellow (Yellow); Urine Specific Gravity > 1.060 (1.001-1.035); Urine Urobilinogen < 2.0 EU/DL (0.2-1.0)
--- NOTE | 2017-05-14 20:47 | Ultrasound Report ---
US venous doppler LE RT Indication: Shortness of breath. Right lower extremity DVT ultrasound: [place] scale, color Doppler and pulse Doppler evaluation the right leg. Right common femoral vein is obscured by bandaging. Normal compressibility is present within the proximal and mid right superficial femoral vein. Occlusive thrombus within the distal superficial femoral vein and popliteal vein noted. Impression: DVT distal right SFV and popliteal vein. Comment: Jewelry Inspector discussed preliminary findings with Geovanna Velázquez at 1955 hours. PROCEDURE INTERPRETED AT [facility] DEPARTMENT OF RADIOLOGY Final Report Signed by: Roberto Briceno M.D.
[2017-05-15] MEDS: CLINDAMYCIN INJ 600 MG in PREMIX 1 EACH IV SCH ×3 (00:24→16:30)
[2017-05-15 05:18] LABS: Calcium 7.6 MG/DL (8.5-10.1); Osmolality,Calculated 293.6 MOS/KG (273-304); Potassium 3.7 MMOL/L (3.5-5.1)
--- NOTE | 2017-05-15 06:07 | Cardiology Progress Note ---
Assessment and Plan (1) Acute respiratory failure with hypoxia Status: Acute Current Visit: Yes (2) Pleural effusion, right Status: Chronic Current Visit: Yes (3) Do not resuscitate Status: Acute Current Visit: Yes (4) Altered mental status Status: Acute Assessment and plan: Patient did not sleep all night she remains confused. Current Visit: Yes (5) Pulmonary embolus Status: Acute Assessment and plan: Status post EKOS procedure and also has demonstrable thrombus in right lower extremity as etiology of her pulmonary embolism. Current Visit: Yes Qualifiers: Pulmonary embolism type: saddle (6) CAD (coronary artery disease) Status: Chronic Current Visit: No Qualifiers: Coronary Disease-Associated Artery/Lesion type: [place] artery [place] vs. transplanted heart: [place] heart Associated angina: without angina Qualified Code(s): I25.10 - Atherosclerotic heart disease of [place] coronary artery without angina pectoris (7) Hypertension Status: Chronic Assessment and plan: Patient's pressure is low marginal at this time. Current Visit: No Qualifiers: Hypertension type: essential hypertension Qualified Code(s): I10 - Essential (primary) hypertension (8) DVT (deep venous thrombosis) Status: Acute Current Visit: Yes Qualifiers: DVT location: lower extremity Affected thrombotic vein of extremity: popliteal Chronicity: acute Laterality: right Qualified Code(s): I82.431 - Acute embolism and thrombosis of right popliteal vein Cardiology - PN: Subj Interval history: The patient is somewhat combative this morning. She is status post her infusion of TPA through her dual PA E because catheters I have removed those at this time. The sheath remained in place. Patient's blood pressure has been marginal her sats are slightly better her heart rate remains elevated. She continues to have poor breath sounds on the right. Considerations were given to repeat imaging to assess her PE this morning as well as her pleural effusion however given her creatinine is gone from 0.9-1.4 she has been hypotensive and she received 80 cc of contrast yesterday I do not think that there would be a significant amount of clinical change based on findings of the CT scan. At this time she appears not to be able to stand for PA lateral chest x-ray to assess her effusion. I certainly think it would be a reasonable consideration to perform thoracentesis on the right if this effusion continues to be large certainly contributing to her respiratory difficulties. She continues to be on 100% nonrebreather. For now I will hold to start starting novel anticoagulant agent for DVT and PE and continue heparin until decision is made about thoracentesis Exam (Progress Note) - Constitutional Vitals: Period Temp Pulse Resp BP Sys/Alas Pulse Ox Last 24 Hr 98.1 F-100.1 F 91-127 18-30 89-183/50-98 85-98 General appearance: over weight - Head Head exam: Present: normocephalic - Eye Eye exam: Present: EOMI Pupils: Present: HANNA - Neck Neck exam: Present: normal inspection, other (She has some pallor) - Respiratory Respiratory exam: Present: other (Clear on the left diminished breath sounds in the right base) - Cardiovascular Cardiovascular exam: Present: regular rate and rhythm (Heart rates about 100) - GI/Abdominal GI/Abdominal exam: Present: normal bowel sounds - Extremities Exam Extremities exam: Present: other (Edema on the right) - Neurological Exam Neurological exam: Present: other (Confused) - Skin Skin exam: Present: warm, dry Result/EKG - Labs CBC & BMP: 05/14/17 11:39 05/15/17 04:03 Labs: Laboratory Results - last 24 hr 05/14/17 05/14/17 05/14/17 11:21 11:39 11:39 WBC 15.1 H RBC 4.81 Hgb 10.8 L Hct 36.0 MCV 74.8 L MCH 23 L MCHC 30.0 L RDW 17.9 H Plt Count 426 H MPV 8.4 L Neut % (Auto) 84.1 H Lymph % (Auto) 8.8 L [place] % (Auto) 5.7 Eos % (Auto) 0.7 Baso % (Auto) 0.2 Neut # (Auto) 12.7 H Lymph # (Auto) 1.3 L [place] # (Auto) 0.9 H Eos # (Auto) 0.1 Baso # (Auto) 0.0 Immature Gran % 0.5 Nucleated RBC % 0.0 Immature Gran # 0.08 Nucleated RBCs # 0.00 INR 1.1 PT Patient/Control Mix 11.5 Circ Anticoag PTT 30.4 ABG pH ABG pCO2 ABG pO2 ABG HCO3 ABG Total CO2 ABG O2 Saturation ABG Base Excess Sodium Potassium Chloride Carbon Dioxide Anion Gap BUN Creatinine GFR Calculation BUN/Creatinine Ratio Glucose Calculated Osmolality Lactic Acid Calcium Magnesium Total Bilirubin AST ALT Alkaline Phosphatase Ammonia Troponin I B-Natriuretic Peptide Total Protein Albumin Globulin Albumin/Globulin Ratio TSH 3rd Generation Urine Color Yellow Urine Appearance Cloudy Urine pH 8.0 Ur Specific [place] 1.013 Urine Protein 30 Urine Glucose (UA) Negative Urine Ketones Negative Urine Blood Small Urine Nitrate Negative Urine Bilirubin Negative Urine Urobilinogen < 2.0 H Urine Leukocytes Negative Urine RBC 17 Urine WBC 1 Ur Squamous Epith Cells Occasional Amorphous Crystals Few Urine Mucus Occasional Ur Culture Indicated? Not indicated 05/14/17 05/14/17 05/14/17 11:39 11:39 11:42 WBC RBC Hgb Hct MCV MCH MCHC RDW Plt Count MPV Neut % (Auto) Lymph % (Auto) [place] % (Auto) Eos % (Auto) Baso % (Auto) Neut # (Auto) Lymph # (Auto) [place] # (Auto) Eos # (Auto) Baso # (Auto) Immature Gran % Nucleated RBC % Immature Gran # Nucleated RBCs # INR PT Patient/Control Mix Circ Anticoag PTT ABG pH ABG pCO2 ABG pO2 ABG HCO3 ABG Total CO2 ABG O2 Saturation ABG Base Excess Sodium 142 Potassium 4.1 Chloride 109 H Carbon Dioxide 23 Anion Gap 14.1 BUN 17 Creatinine 0.90 GFR Calculation 58 BUN/Creatinine Ratio 18.00 Glucose 97 Calculated Osmolality 284.1 Lactic Acid 1.3 Calcium 8.9 Magnesium Total Bilirubin 0.60 AST 22 ALT 14 Alkaline Phosphatase 105 Ammonia < 10 L Troponin I < 0.015 B-Natriuretic Peptide 336 H Total Protein 7.1 Albumin 3.2 L Globulin 3.9 H Albumin/Globulin Ratio 0.8 L TSH 3rd Generation 2.490 Urine Color Urine Appearance Urine pH Ur Specific [place] Urine Protein Urine Glucose (UA) Urine Ketones Urine Blood Urine Nitrate Urine Bilirubin Urine Urobilinogen Urine Leukocytes Urine RBC Urine WBC Ur Squamous Epith Cells Amorphous Crystals Urine Mucus Ur Culture Indicated? 05/14/17 05/14/17 05/14/17 12:23 17:08 17:08 WBC RBC Hgb Hct MCV MCH MCHC RDW Plt Count MPV Neut % (Auto) Lymph % (Auto) [place] % (Auto) Eos % (Auto) Baso % (Auto) Neut # (Auto) Lymph # (Auto) [place] # (Auto) Eos # (Auto) Baso # (Auto) Immature Gran % Nucleated RBC % Immature Gran # Nucleated RBCs # INR PT Patient/Control Mix Circ Anticoag PTT ABG pH 7.446 ABG pCO2 28.9 L ABG pO2 47.1 L ABG HCO3 21.5 ABG Total CO2 18.0 L ABG O2 Saturation 81.7 L ABG Base Excess -3.2 L Sodium Potassium Chloride Carbon Dioxide Anion Gap BUN Creatinine GFR Calculation BUN/Creatinine Ratio Glucose Calculated Osmolality Lactic Acid Calcium Magnesium 1.9 Total Bilirubin AST ALT Alkaline Phosphatase Ammonia Troponin I 0.161 H D B-Natriuretic Peptide Total Protein Albumin Globulin Albumin/Globulin Ratio TSH 3rd Generation Urine Color Urine Appearance Urine pH Ur Specific [place] Urine Protein Urine Glucose (UA) Urine Ketones Urine Blood Urine Nitrate Urine Bilirubin Urine Urobilinogen Urine Leukocytes Urine RBC Urine WBC Ur Squamous Epith Cells Amorphous Crystals Urine Mucus Ur Culture Indicated? 05/14/17 05/15/17 Unknown 04:03 WBC RBC Hgb Hct MCV MCH MCHC RDW Plt Count MPV Neut % (Auto) Lymph % (Auto) [place] % (Auto) Eos % (Auto) Baso % (Auto) Neut # (Auto) Lymph # (Auto) [place] # (Auto) Eos # (Auto) Baso # (Auto) Immature Gran % Nucleated RBC % Immature Gran # Nucleated RBCs # INR PT Patient/Control Mix Circ Anticoag PTT ABG pH ABG pCO2 ABG pO2 ABG HCO3 ABG Total CO2 ABG O2 Saturation ABG Base Excess Sodium 146 H Potassium 3.7 Chloride 114 H Carbon Dioxide 20 L Anion Gap 15.7 H BUN 20 H Creatinine 1.40 H GFR Calculation 35 BUN/Creatinine Ratio 14.00 Glucose 117 H Calculated Osmolality 293.6 Lactic Acid Calcium 7.6 L Magnesium Total Bilirubin AST ALT Alkaline Phosphatase Ammonia Troponin I B-Natriuretic Peptide Total Protein Albumin Globulin Albumin/Globulin Ratio TSH 3rd Generation Urine Color Yellow Urine Appearance Clear Urine pH 6.0 Ur Specific [place] > 1.060 H Urine Protein 30 Urine Glucose (UA) Negative Urine Ketones 5 Urine Blood Moderate Urine Nitrate Negative Urine Bilirubin Negative Urine Urobilinogen < 2.0 H Urine Leukocytes Negative Urine RBC 21 Urine WBC Ur Squamous Epith Cells Occasional Amorphous Crystals Urine Mucus Ur Culture Indicated? Not indicated Quality Measures - VTE Contraindication to Mechanical VTE Prophylaxis: Local Inflammation
[2017-05-15 07:09] LABS: Basophils % 0.1 % (0.0-0.8); Eosinophils % 0.1 % (0.00-10.9); Hematocrit 23.3 VOL% (35.7-47.0); Immature Granulocytes % 0.8 %; Immature Granulocytes Absolute 0.14 #; Lymphocytes % 11.8 % (21.3-54.2); Mean Corpuscular Hemoglobin 22 PG (27-34); Mean Corpuscular Volume 74.4 FL (87-102); Mean Platelet Volume 8.9 FL (9.6-12.0); Monocytes # 1.2 10*3/uL (0.11-0.8); Monocytes % 7.2 % (1.7-12.7); Neutrophils # 13.5 10*3/uL (1.4-7.4); Platelet Count 301 T/CUMM (130-400); Red Cell Distribution Width 17.7 % (9.3-17.3); White Blood Count 16.9 T/CUMM (4-12)
[2017-05-15 07:16] LABS: Red Blood Count 3.13 MC/CUMM (3.8-5.5)
[2017-05-15] MEDS ORDERED: CARVEDILOL 12.5 MG TABLET PO SCH (08:00)
[2017-05-15] MEDS: POTASSIUM CHLORIDE 20 MEQ TABLET PO SCH ×2 (08:14→08:29)
[2017-05-15] MEDS: TOPIRAMATE 25 MG TABLET PO SCH ×3 (08:14→19:20)
[2017-05-15] MEDS: PARoxetine 20 MG TABLET PO SCH ×3 (08:14→19:03)
[2017-05-15] MEDS: GABAPENTIN 600 MG TABLET PO SCH ×3 (08:14→19:03)
[2017-05-15] MEDS: HEPARIN DRIP 25,000 UNITS/500 ML PREMIX IV SCH ×3 (08:57→21:18)
--- NOTE | 2017-05-15 09:33 | Physician Query Form ---
CLICK EDIT DOCUMENT TO SELECT QUERY ANSWER --> OK --> SIGN Sylvia Medel RN, CCDS Certified Clinical Pile Driver Engineer W) [phone] (f) [phone] [email or web address] PROVIDERS: Make your selection(s) from the choices in EACH section by typing an "x" and enter comments in the comment section. Please use your independent medical judgment in providing your response. This request does not imply that any particular answer is desired or expected. CLINICAL INDICATORS: (Providers should not edit this section) The medical record indicates that the patient was admitted with a PE, "right- sided failure", "evidence of cor pulmonale", BNP 336# and the patient was treated with some IV Lasix. Please provide further specificity regarding CHF. ( ) Acute cor pulmonale ( x) Chronic cor pulmonale ACUITY: ( ) Acute ( x) Chronic ( ) Acute on Chronic ( ) Clinically unable to determine TYPE: ( ) Systolic (HFrEF - heart failure with reduced systolic function/EF) ( ) Diastolic (HFpEF - heart failure with preserved systolic function/EF) ( ) Combined Systolic/Diastolic ( ) Other, please specify: ( ) Clinically unable to determine ( x) The patient does NOT have CHF COMMENTS: PLEASE ALSO DOCUMENT RESPONSE IN PROGRESS NOTES AND/OR DISCHARGE SUMMARY Use of terms such as suspected, likely, or probable (associated with a specific diagnosis that is being evaluated, monitored, or treated as if it exists) are acceptable and can be restated in the discharge summary if not ruled out. MTDD
[2017-05-15] MEDS ORDERED: SODIUM CHLORIDE 0.9% 500 ML IV ONE (11:40)
[2017-05-15] MEDS ORDERED: POTASSIUM CHLORIDE 10 MEQ TABLET PO SCH (12:00)
[2017-05-15] MEDS: SODIUM CHLORIDE 0.9% 1,000 ML IV SCH (12:18)
[2017-05-15] MEDS ORDERED: SODIUM CHLORIDE 0.9% 250 ML IV PRN ×2 (12:44→13:19)
--- NOTE | 2017-05-15 13:13 | Hospitalist Progress Note ---
Assessment and Plan (1) Pulmonary embolus Status: Acute Assessment and plan: heparin only, will hold off on eliquis for now, concern patient is bleeding. Current Visit: Yes Qualifiers: Pulmonary embolism type: saddle (2) Acute respiratory failure with hypoxia Status: Acute Assessment and plan: no improvement in oxygen requirement. Current Visit: Yes (3) Pleural effusion, right Status: Chronic Assessment and plan: right thoracentesis today if tolerated. Current Visit: Yes (4) Do not resuscitate Status: Acute Current Visit: Yes (5) Right leg DVT Status: Acute Assessment and plan: filter today if tolerated Current Visit: Yes (6) Acute blood loss anemia Status: Acute Assessment and plan: 2 units of PRBC now and prn hgb less than 8. hgb every 6 hours Current Visit: Yes (7) Hypotension Status: Acute Assessment and plan: Hold Coreg and Topamax, normal saline bolus and normal saline at 100. Will stop IV fluids while infusing blood. Will give 2 units of packed red blood cells. Current Visit: Yes Hospitalist: Subjective Interval history: urine output is low and blood pressure low, hgb low, most likely bleed from TPA and heparin. Exam - Constitutional Vitals: Period Temp Pulse Resp BP Sys/Alas Pulse Ox Last 24 Hr 97.5 F-99.3 F 91-127 18-30 84-159/50-98 92-99 Exam: Heart Rate-[tachy ] Lungs-[very diminished ] GI-[+bs soft, NT] Ext-[1+ edema] Neuro [Motor 4/4 in LE, alert to name only Psych agitated mood and affect] General [moderate acute distress] Results - Labs CBC & BMP: 05/15/17 06:57 05/15/17 04:03 Lab Results: I have reviewed the past 24 hour labs Quality Measures - VTE Contraindication to Mechanical VTE Prophylaxis: Local Inflammation
[2017-05-15] MEDS ORDERED: DEXTROSE 50% 25 GM/50 ML VIAL IV PRN (16:04)
[2017-05-15] MEDS ORDERED: GLUCAGON 1 MG VIAL IM PRN (16:04)
[2017-05-15] MEDS: PANTOPRAZOLE 40 MG VIAL IV SCH (16:30)
--- NOTE | 2017-05-15 18:27 | Post Interventional Procedure ---
Pre-op diagnosis: DVT, PE, no PIV access Post-op diagnosis: same Procedure: 1. IVC filter placement rt IJ 2. Rt IJ central line 3. Unsuccessful attempt to place Dobhoff feeding tube left nares Contrast: Omni 350, 20 cc Flouroscopy: see radiology report Radiologist: Roberto Briceno Anesthesia: local Specimens: none sent Estimated blood loss: none Complications: none Condition: critical Description/Findings: 1. Infrarenal IVC filter 2. Right IJ 3-lumen central line 3. Unable to pass Dobhoff past GE junction, and frequent tracheal passes of Dobhoff. Suspect hiatal hernia. If NGT is essential, consult GI. Assessment and Plan - Time spent with patient Time spent with patient: Greater than 30 minutes
--- NOTE | 2017-05-15 18:48 | XRay Report ---
XR chest post procedure Indication: Right thoracentesis. Post procedure chest radiograph, 2 views: Inspiratory and expiratory views of the chest were obtained. When compared to yesterday, the right pleural effusion has been completely evacuated. No pneumothorax shown. Scarring or atelectasis at the lung bases is stable. Heart size remains normal. Scoliosis again shown. Impression: No complication following right thoracentesis. PROCEDURE INTERPRETED AT [facility] DEPARTMENT OF RADIOLOGY Final Report Signed by: Roberto Briceno M.D.
--- NOTE | 2017-05-15 18:55 | Interventional Radiology Rpt ---
IR IVC filter placement, IR cvc insert nt >5, IR fluoro guide cv cath, FL feeding tube, US guide vascular access Indication: DVT, PE, no IV access. PROCEDURES: 1. IVC FILTER PLACEMENT RIGHT INTERNAL JUGULAR VEIN ACCESS 2. PLACEMENT OF RIGHT IJ CENTRAL LINE. 3. UNSUCCESSFUL ATTEMPT AT PLACING DOBBHOFF FEEDING TUBE UNDER FLUOROSCOPY Description: 1. IVC FILTER PLACEMENT Description: A formal timeout was performed. Maximum sterile barrier technique was used. The right neck was prepped and draped in a sterile fashion. Sonographic evaluation demonstrates a patent and compressible right internal jugular vein. 5 cc 1% lidocaine was infused subcutaneously. Under sonographic guidance, a micropuncture needle was advanced into the target vein. A captured sonographic image documents the position of the needle. The needle was exchanged over a wire for a flush catheter with the tip in the distal IVC. An inferior venacavogram was performed. Normal anatomy was present. The lowest renal vein inflow was identified. The catheter was exchanged over a wire for a Lillie IVC filter sheath. The filter was then advanced and deployed such that the apex is at the lowest renal vein inflow. Contrast: Omnipaque 350, 20 cc. Fluoroscopy: 0.8 minutes. Impression: Infrarenal IVC filter placement as described. 2. RIGHT IJ CENTRAL LINE Description: The right IJ sheath was then removed over a wire. A triple lumen catheter was advanced until the tip was at the RA-SVC junction. The wire was removed. The catheter was anchored in place with 2-0 Prolene and a sterile dressing applied. All 3 ports aspirated and flushed easily. Fluoroscopy: 0.1 minutes. Impression: Placement of right IJ central line after IVC filter placement. Central line ready for immediate use. 3. ATTEMPTED DOBBHOFF FEEDING TUBE PLACEMENT Description: Through the left nares, multiple attempts were made to pass an Dobbhoff feeding tube to the stomach. On the first couple of passes, the tube would not advance beyond the diaphragmatic hiatus suggesting the presence of a hiatal hernia. Despite extensive effort, we were unable to advance NG tube in the abdomen. On at least 3 passes, the tube passed into the trachea and was immediately withdrawn. At this point, no additional attempts were made. Consider GI consult for direct visualization is necessary. Fluoroscopy: 3.0 minutes. Impression: Unsuccessful attempt at placing Dobbhoff feeding tube. PROCEDURE INTERPRETED AT [facility] DEPARTMENT OF RADIOLOGY Final Report Signed by: Roberto Briceno M.D.
--- NOTE | 2017-05-15 18:56 | Ultrasound Report ---
US thoracentesis Indication: Right pleural effusion. ULTRASOUND-GUIDED THORACENTESIS Description: A formal timeout was performed. Maximum sterile barrier technique was used. A right pleural effusion was identified with ultrasound. The right back was prepped and draped in sterile fashion. Under sonographic guidance, a 6 Latvian pigtail catheter was advanced into the effusion using trocar technique. A captured sonographic image documents needle position. The needle was removed. Through the catheter, we obtained a total of 150 cc of straw-colored, clear fluid. The catheter was removed. Sonographic evaluation of the right chest was repeated showing residual fluid in the cavity. Therefore, a second pass was made with the 6 Latvian pigtail catheter and trocar under sonographic guidance. Captured sonographic image documenting the second pass. An additional 250 cc of straw-colored, clear fluid was aspirated. The catheter was then removed. A bandage was placed at the puncture site. The patient tolerated the procedure well. Specimen: 400 cc of pleural fluid. Chest radiograph is pending. Impression: Ultrasound-guided thoracentesis. PROCEDURE INTERPRETED AT [facility] DEPARTMENT OF RADIOLOGY Final Report Signed by: Roberto Briceno M.D.
[2017-05-15] MEDS: LEVOFLOXACIN INJ 750 MG in PREMIX 1 EACH IV SCH (19:02)
[2017-05-15] MEDS: INSULIN REGULAR 100 UNIT/ML SUBCUT SCH (19:18)
[2017-05-15] MEDS ORDERED: ZALEPLON 5 MG CAPSULE PO ONE (19:55)
[2017-05-15] MEDS ORDERED: HEPARIN DRIP 25,000 UNITS/500 ML PREMIX IV SCH (20:30)
[2017-05-15 21:15] LABS: Eosinophils,Pleural Fluid 1 %; Lymphocytes,Pleural Fluid 19 %; Monocytes,Pleural Fluid 1 %; Neutrophils,Pleural Fluid 79 %; RBC,Pleural Fluid 638 T/CUMM
[2017-05-16] MEDS: MORPHINE 2 MG/1 ML SYRINGE IV PRN ×3 (00:16→20:34)
[2017-05-16] MEDS: INSULIN REGULAR 100 UNIT/ML SUBCUT SCH ×4 (00:31→19:00)
[2017-05-16] MEDS: CLINDAMYCIN INJ 600 MG in PREMIX 1 EACH IV SCH ×3 (00:48→18:28)
[2017-05-16] MEDS ORDERED: HYDROmorphone 2 MG/1 ML VIAL IV PRN (02:47)
[2017-05-16] MEDS: SODIUM CHLORIDE 0.9% 1,000 ML IV SCH (03:48)
[2017-05-16 03:53] LABS: Basophils % 0.1 % (0.0-0.8); Eosinophils # 0.1 10*3/uL (0.0-0.87); Eosinophils % 0.4 % (0.00-10.9); Hematocrit 24.8 VOL% (35.7-47.0); Hemoglobin 7.8 GM/DL (12.0-16.0); Immature Granulocytes % 0.6 %; Immature Granulocytes Absolute 0.08 #; Lymphocytes % 14.9 % (21.3-54.2); Mean Corpuscular HGB Conc 31.5 GM/DL (32-36); Mean Corpuscular Hemoglobin 25 PG (27-34); Mean Corpuscular Volume 79.5 FL (87-102); Mean Platelet Volume 8.9 FL (9.6-12.0); Monocytes # 1.2 10*3/uL (0.11-0.8); Monocytes % 8.6 % (1.7-12.7); Neutrophils # 10.2 10*3/uL (1.4-7.4); Neutrophils % 75.4 % (38.7-73.9); Platelet Count 233 T/CUMM (130-400); Red Blood Count 3.12 MC/CUMM (3.8-5.5); Red Cell Distribution Width 18.2 % (9.3-17.3); White Blood Count 13.5 T/CUMM (4-12)
[2017-05-16 05:12] LABS: Calcium 7.5 MG/DL (8.5-10.1); Osmolality,Calculated 299.1 MOS/KG (273-304); Potassium 3.3 MMOL/L (3.5-5.1)
[2017-05-16 05:50] LABS: Phosphorous 3.3 MG/DL (2.5-4.9); Prealbumin 3.5 MG/DL (20-40)
[2017-05-16] MEDS ORDERED: LORazepam 2 MG/1 ML VIAL IV ONE (08:07)
[2017-05-16] MEDS ORDERED: DEXTROSE 5% 1,000 ML IV SCH (08:30)
[2017-05-16] MEDS: FUROSEMIDE 40 MG/4 ML VIAL IV SCH ×2 (08:53→18:16)
[2017-05-16] MEDS ORDERED: POTASSIUM CHLORIDE 20 MEQ TABLET PO SCH (09:00)
--- NOTE | 2017-05-16 11:28 | Cardiology Progress Note ---
Assessment and Plan (1) Acute respiratory failure with hypoxia Status: Acute Current Visit: Yes (2) Pleural effusion, right Status: Chronic Assessment and plan: Status post large volume thoracentesis Current Visit: Yes (3) Do not resuscitate Status: Acute Current Visit: Yes (4) Pulmonary embolus Status: Acute Assessment and plan: Status post EKOS procedure and also has demonstrable thrombus in right lower extremity as etiology of her pulmonary embolism. Current Visit: Yes Qualifiers: Pulmonary embolism type: saddle (5) CAD (coronary artery disease) Status: Chronic Current Visit: No Qualifiers: Coronary Disease-Associated Artery/Lesion type: [place] artery [place] vs. transplanted heart: [place] heart Associated angina: without angina Qualified Code(s): I25.10 - Atherosclerotic heart disease of [place] coronary artery without angina pectoris (6) Hypertension Status: Chronic Assessment and plan: Patient's pressure is low marginal at this time. Current Visit: No Qualifiers: Hypertension type: essential hypertension Qualified Code(s): I10 - Essential (primary) hypertension (7) DVT (deep venous thrombosis) Status: Acute Current Visit: Yes Qualifiers: DVT location: lower extremity Affected thrombotic vein of extremity: popliteal Chronicity: acute Laterality: right Qualified Code(s): I82.431 - Acute embolism and thrombosis of right popliteal vein (8) Anemia Status: Acute Current Visit: Yes Cardiology - PN: Subj Interval history: Ms. Subramanian looks better. She is on nasal cannula satting 94%. She is receiving blood at this time. Her 2 daughters at the bedside. She is somewhat "scared" but is requesting red Jell-O. Help of interventional radiology for the large volume thoracentesis and IVC filter is greatly appreciated. At this time were holding anticoagulation because of declining hemoglobin and hematocrit but as soon as this is stable if there is no overt signs or symptoms of bleeding we will try to initiate anticoagulation. For her pulmonary embolism as well as her IVC filter. Her heart rate is up and I think this is primarily from the pulmonary embolism and her anemia. Exam (Progress Note) - Constitutional Vitals: Period Temp Pulse Resp BP Sys/Alas Pulse Ox Last 24 Hr 96.7 F-99.5 F 88-123 15-28 80-161/36-92 91-100 General appearance: over weight - Eye Eye exam: Present: other (She has pallor) - Respiratory Respiratory exam: Present: clear to auscultation bilaterally (Limited effort) - Cardiovascular Cardiovascular exam: Present: tachycardia (No gallop) - GI/Abdominal GI/Abdominal exam: Present: normal bowel sounds, soft. Absent: distended, firm , guarding, tenderness, rebound - Neurological Exam Neurological exam: Present: alert. Absent: oriented X3 - Psychiatric Psychiatric exam: Present: normal affect, normal mood - Skin Skin exam: Present: normal color Result/EKG - Labs CBC & BMP: 05/16/17 03:50 05/16/17 03:50 Labs: Laboratory Results - last 24 hr 05/15/17 05/15/17 05/15/17 06:57 17:15 19:17 WBC RBC Hgb Hct MCV MCH MCHC RDW Plt Count MPV Neut % (Auto) Lymph % (Auto) Ford % (Auto) Eos % (Auto) Baso % (Auto) Neut # (Auto) Lymph # (Auto) Ford # (Auto) Eos # (Auto) Baso # (Auto) Immature Gran % Nucleated RBC % Immature Gran # Nucleated RBCs # Circ Anticoag PTT 34.1 Sodium Potassium Chloride Carbon Dioxide Anion Gap BUN Creatinine GFR Calculation BUN/Creatinine Ratio Glucose POC Glucose 103 Calculated Osmolality Calcium Phosphorus Prealbumin Fluid Total Protein Fluid Albumin Fluid LDH Fluid Amylase Fluid Lipase Pleural pH Pleural WBC Pleural RBC Pleural Tot Cell Ct Pleural Neutrophils Pleural Lymphocytes Pleural Monocytes Pleural Eosinophils Pleural Glucose Blood Type A POSITIVE Antibody Screen Negative Crossmatch See Detail Blood Bank Comment 05/15/17 05/15/17 05/15/17 19:50 19:50 19:50 WBC RBC Hgb Hct MCV MCH MCHC RDW Plt Count MPV Neut % (Auto) Lymph % (Auto) Ford % (Auto) Eos % (Auto) Baso % (Auto) Neut # (Auto) Lymph # (Auto) Ford # (Auto) Eos # (Auto) Baso # (Auto) Immature Gran % Nucleated RBC % Immature Gran # Nucleated RBCs # Circ Anticoag PTT Sodium Potassium Chloride Carbon Dioxide Anion Gap BUN Creatinine GFR Calculation BUN/Creatinine Ratio Glucose POC Glucose Calculated Osmolality Calcium Phosphorus Prealbumin Fluid Total Protein Fluid Albumin 2.4 Fluid LDH Fluid Amylase 58 Fluid Lipase Pleural pH Pleural WBC Pleural RBC Pleural Tot Cell Ct Pleural Neutrophils Pleural Lymphocytes Pleural Monocytes Pleural Eosinophils Pleural Glucose 99 Blood Type Antibody Screen Crossmatch Blood Bank Comment 05/15/17 05/15/17 05/15/17 19:50 19:50 19:50 WBC RBC Hgb Hct MCV MCH MCHC RDW Plt Count MPV Neut % (Auto) Lymph % (Auto) Ford % (Auto) Eos % (Auto) Baso % (Auto) Neut # (Auto) Lymph # (Auto) Ford # (Auto) Eos # (Auto) Baso # (Auto) Immature Gran % Nucleated RBC % Immature Gran # Nucleated RBCs # Circ Anticoag PTT Sodium Potassium Chloride Carbon Dioxide Anion Gap BUN Creatinine GFR Calculation BUN/Creatinine Ratio Glucose POC Glucose Calculated Osmolality Calcium Phosphorus Prealbumin Fluid Total Protein 4.0 Fluid Albumin Fluid LDH Fluid Amylase Fluid Lipase 25 Pleural pH 8.00 Pleural WBC Pleural RBC Pleural Tot Cell Ct Pleural Neutrophils Pleural Lymphocytes Pleural Monocytes Pleural Eosinophils Pleural Glucose Blood Type Antibody Screen Crossmatch Blood Bank Comment 05/15/17 05/15/17 05/15/17 19:50 19:50 20:05 WBC RBC Hgb 8.5 L D Hct MCV MCH MCHC RDW Plt Count MPV Neut % (Auto) Lymph % (Auto) Ford % (Auto) Eos % (Auto) Baso % (Auto) Neut # (Auto) Lymph # (Auto) Ford # (Auto) Eos # (Auto) Baso # (Auto) Immature Gran % Nucleated RBC % Immature Gran # Nucleated RBCs # Circ Anticoag PTT Sodium Potassium Chloride Carbon Dioxide Anion Gap BUN Creatinine GFR Calculation BUN/Creatinine Ratio Glucose POC Glucose Calculated Osmolality Calcium Phosphorus Prealbumin Fluid Total Protein Fluid Albumin Fluid LDH 183 Fluid Amylase Fluid Lipase Pleural pH Pleural WBC 136 Pleural RBC [address] 100 Pleural Neutrophils 79 Pleural Lymphocytes 19 Pleural Monocytes 1 Pleural Eosinophils 1 Pleural Glucose Blood Type Antibody Screen [place] Blood Bank Comment 05/15/17 05/16/17 05/16/17 Unknown 00:29 00:42 WBC RBC Hgb 8.4 L Hct MCV MCH MCHC RDW Plt Count MPV Neut % (Auto) Lymph % (Auto) Ford % (Auto) Eos % (Auto) Baso % (Auto) Neut # (Auto) Lymph # (Auto) Ford # (Auto) Eos # (Auto) Baso # (Auto) Immature Gran % Nucleated RBC % Immature Gran # Nucleated RBCs # Circ Anticoag PTT Sodium Potassium Chloride Carbon Dioxide Anion Gap BUN Creatinine GFR Calculation BUN/Creatinine Ratio Glucose POC Glucose 75 Calculated Osmolality Calcium Phosphorus Prealbumin Fluid Total Protein Fluid Albumin Fluid LDH Fluid Amylase Fluid Lipase Pleural pH Pleural WBC Pleural RBC Pleural Tot Cell Ct Pleural Neutrophils Pleural Lymphocytes Pleural Monocytes Pleural Eosinophils Pleural Glucose Blood Type A POSITIVE Antibody Screen Crossmatch Blood Bank Comment 05/16/17 05/16/17 05/16/17 00:42 03:41 03:50 WBC 13.5 H RBC 3.12 L Hgb 7.8 L Hct 24.8 L MCV 79.5 L MCH 25 L MCHC 31.5 L RDW 18.2 H Plt Count 233 D MPV 8.9 L Neut % (Auto) 75.4 H Lymph % (Auto) 14.9 L Ford % (Auto) 8.6 Eos % (Auto) 0.4 Baso % (Auto) 0.1 Neut # (Auto) 10.2 H Lymph # (Auto) 2.0 Ford # (Auto) 1.2 H Eos # (Auto) 0.1 Baso # (Auto) 0.0 Immature Gran % 0.6 Nucleated RBC % 0.0 Immature Gran # 0.08 Nucleated RBCs # 0.00 Circ Anticoag PTT 85.8 H D Sodium Potassium Chloride Carbon Dioxide Anion Gap BUN Creatinine GFR Calculation BUN/Creatinine Ratio Glucose POC Glucose Calculated Osmolality Calcium Phosphorus Prealbumin Fluid Total Protein Fluid Albumin Fluid LDH Fluid Amylase Fluid Lipase Pleural pH Pleural WBC Pleural RBC Pleural Tot Cell Ct Pleural Neutrophils Pleural Lymphocytes Pleural Monocytes Pleural Eosinophils Pleural Glucose Blood Type Cancelled Antibody Screen Cancelled Crossmatch See Detail Blood Bank Comment Cancelled 05/16/17 05/16/17 05/16/17 03:50 03:50 06:07 WBC RBC Hgb Hct MCV MCH MCHC RDW Plt Count MPV Neut % (Auto) Lymph % (Auto) Ford % (Auto) Eos % (Auto) Baso % (Auto) Neut # (Auto) Lymph # (Auto) Ford # (Auto) Eos # (Auto) Baso # (Auto) Immature Gran % Nucleated RBC % Immature Gran # Nucleated RBCs # Circ Anticoag PTT Sodium 149 H Potassium 3.3 L Chloride 116 H Carbon Dioxide 21 Anion Gap 15.3 H BUN 26 H Creatinine 1.40 H GFR Calculation 35 BUN/Creatinine Ratio 18.00 Glucose 82 POC Glucose 82 Calculated Osmolality 299.1 Calcium 7.5 L Phosphorus 3.3 Prealbumin 3.5 L Fluid Total Protein Fluid Albumin Fluid LDH Fluid Amylase Fluid Lipase Pleural pH Pleural WBC Pleural RBC Pleural Tot Cell Ct Pleural Neutrophils Pleural Lymphocytes Pleural Monocytes Pleural Eosinophils Pleural Glucose Blood Type Antibody Screen Crossmatch Blood Bank Comment Quality Measures - VTE Contraindication to Mechanical VTE Prophylaxis: Local Inflammation
[2017-05-16] MEDS: LORazepam 2 MG/1 ML VIAL IV PRN ×2 (12:10→18:11)
[2017-05-16] MEDS: HEPARIN DRIP 25,000 UNITS/500 ML PREMIX IV SCH (12:27)
[2017-05-16] MEDS: GABAPENTIN 600 MG TABLET PO SCH ×2 (12:36→18:34)
[2017-05-16] MEDS: PARoxetine 20 MG TABLET PO SCH ×2 (12:36→18:34)
--- NOTE | 2017-05-16 12:44 | Hospitalist Progress Note ---
Assessment and Plan (1) Pulmonary embolus Status: Acute Assessment and plan: heparin only, will hold off on eliquis for now, patient still requiring blood Current Visit: Yes Qualifiers: Pulmonary embolism type: saddle (2) Acute respiratory failure with hypoxia Status: Acute Assessment and plan: responded to lasix, will attempt to wean down oxygen, CHF, aspiration, PE, bilateral pleural effusions Current Visit: Yes (3) Pleural effusion, right Status: Chronic Assessment and plan: right thoracentesis removed 400 ml yesterday Current Visit: Yes (4) Do not resuscitate Status: Acute Assessment and plan: no feeding tube, patient is aspirating when she tries to eat Current Visit: Yes (5) Right leg DVT Status: Acute Assessment and plan: s/p filter Current Visit: Yes (6) Acute blood loss anemia Status: Acute Assessment and plan: 2 units of PRBC given today, repeat hgb and give more blood if hgb less than 8 Current Visit: Yes (7) Hypotension Status: Acute Assessment and plan: resolved with blood, cont to monitor carefully Current Visit: Yes (8) Hypokalemia Status: Acute Assessment and plan: Unable to tolerate p.o. potassium will have to replace IV. Current Visit: Yes (9) Hypernatremia Status: Acute Assessment and plan: Hep-Lock normal saline Current Visit: Yes (10) Pulmonary hypertension Status: Acute Assessment and plan: Could be secondary to pulmonary embolus, unable to wean off oxygen. Current Visit: Yes (11) Acute diastolic (congestive) heart failure Status: Acute Assessment and plan: Lasix 40 mg IV every 12 Current Visit: Yes (12) Confusion Status: Acute Assessment and plan: confusion and agitation, prn ativan Current Visit: Yes (13) Aspiration pneumonia Status: Acute Assessment and plan: Chest x-ray, continue Levaquin and clindamycin Current Visit: Yes Hospitalist: Subjective Interval history: Had meeting with two of her daughters today. UO has not improved, I will give dose of lasix and consult renal. Unable to place feeding tube due to large hiatal hernia. She remains confused and agitated and has not slept for several days. Low dose of ativan given. mechanical soft diet and crush potassium in pudding. Still requiring the same amount of oxygen despite thoracentesis and EKOS. UO 1000 ml in response to lasix. Aspirating when she trys to eat. Critical care time due to bleeding 1 hour Exam - Constitutional Vitals: Period Temp Pulse Resp BP Sys/Alas Pulse Ox Last 24 Hr 96.7 F-99.5 F 88-123 15-28 80-161/36-92 91-100 Exam: Heart Rate-[tachy] Lungs-[very diminished with crackles] GI-[+bs soft, NT] Ext-[1+ edema] Neuro [Motor 4/4 in LE, agitated Psych agitated mood and affect] General [moderate acute distress] Results - Labs CBC & BMP: 05/16/17 03:50 05/16/17 03:50 Lab Results: I have reviewed the past 24 hour labs Labs: Blood cultures 2 negative, fluid from thoracentesis negative for infection. Quality Measures - VTE Contraindication to Mechanical VTE Prophylaxis: Local Inflammation
[2017-05-16] MEDS ORDERED: POTASSIUM CHLORIDE RIDER 10 MEQ in PREMIX 1 EACH IV PRN (13:00)
--- NOTE | 2017-05-16 13:36 | XRay Report ---
History: Shortness of breath Date: 05/16/2017 Study: Chest x-ray AP portable Comparison exam: 05/15/2017 A right IJ central line overlies the right atrium. There is no pneumothorax. There are stable cardiomegaly. The mediastinal contours are unchanged. The pulmonary vasculature is not engorged. There is increasing hazy density over the right lung base, likely related to increasing layered right pleural effusion and some mild right basilar atelectasis. There is some stable atelectasis/infiltrate in the lingula. The osseous structures are similar. Impression: No pneumothorax. Increasing mild right pleural effusion and right basilar atelectasis. Otherwise unchanged PROCEDURE INTERPRETED AT [facility] DEPARTMENT OF RADIOLOGY Final Report Signed by: Dr. Yoli Edwards
[2017-05-16] MEDS ORDERED: HALOPERIDOL 5 MG/ML AMP IV ONE (14:29)
[2017-05-16] MEDS ORDERED: HALOPERIDOL 5 MG/ML AMP ONE (14:34)
[2017-05-16] MEDS: POTASSIUM CHLORIDE RIDER 10 MEQ in PREMIX 1 EACH IV SCH ×7 (14:49→23:18)
--- NOTE | 2017-05-16 15:59 | Nephrology Consult Note ---
History of Present Illness Chief complaint: Oliguria History of present illness: Ms. Subramanian is a 87 year old female with a history of hypertension was admitted to the ICU setting for shortness of breath and had a diagnosis of a saddle embolus obtained by CT scan. She has bilateral pleural effusions. Nephrology has been consulted for oliguria. Patient has responded to IV Lasix as approximately 600 cc of urine in the [place] bag at this time. Serum creatinine is noted be 1.7. Family members are at the bedside. Home Medications Medication Instructions Recorded Confirmed Type amLODIPine [Norvasc] 5 mg PO DAILY@05/23/15 05/14/17 History ARIPiprazole [Aripiprazole] 2 mg PO DAILY@04/02/17 05/14/17 History Carvedilol 6.25 mg PO DAILY W/SUPPER 04/02/17 05/14/17 History Carvedilol 12.5 mg PO DAILY W/BREAKFAST 04/02/17 05/14/17 History Clorazepate [Tranxene] 3.75 mg PO BID PRN 04/02/17 05/14/17 History Furosemide 20 mg PO DAILY@12 04/02/17 05/14/17 History Gabapentin 600 mg PO BID W/MEALS 04/02/17 05/14/17 History PARoxetine [Paxil] 20 mg PO BID W/MEALS 04/02/17 05/14/17 History Pantoprazole Tab [Protonix Tab] 40 mg PO BID W/MEALS 04/02/17 05/14/17 History Potassium Chloride 10 meq PO DAILY@12 04/02/17 05/14/17 History Temazepam 15 mg PO BEDTIME 04/02/17 05/14/17 History Topiramate 25 mg PO TID W/MEALS 04/02/17 05/14/17 History Aspirin Chew Tab 81 mg PO DAILY #0 tablet 04/06/17 05/14/17 Rx Levofloxacin Tab [Levaquin Tab] 500 mg PO DAILY #5 tablet 04/10/17 05/14/17 Rx Allergies Allergy/AdvReac Type Severity Reaction Status Date / Time acetaminophen Allergy Unknown/Unable Verified 05/14/17 10:48 to obtain cefuroxime [From Ceftin] Allergy ANAPHYLAXIS Verified 04/02/17 14:17 Nisoldipine [From Sular] Allergy Unknown/Unable Verified 05/14/17 10:48 to obtain Quinolones Allergy Unknown/Unable Verified 05/14/17 10:48 to obtain Amoxicillin [From Augmentin] AdvReac Nausea Verified 04/02/17 14:17 clarithromycin [From Biaxin] AdvReac Nausea Verified 04/02/17 14:17 clavulanic acid AdvReac Nausea Verified 04/02/17 14:17 [From Augmentin] codeine AdvReac Nausea Verified 04/02/17 14:17 hydrocodone [From Lortab] AdvReac Nausea Verified 04/02/17 14:17 levofloxacin [From Levaquin] AdvReac Nausea Verified 04/02/17 14:17 meperidine [From Demerol] AdvReac Nausea Verified 04/02/17 14:17 Medical,Surgical,& Family Hx - Medical History Cardio: History of: CHF, CAD, Hypertension Psychological: History of: Depression Neurology: History of: Cerebrovascular Accident, Migraine Endocrine: History of: Dyslipidemia, Thyroid Disorder Respiratory: History of: Pneumonia Genitourinary: History of: Recurring Urinary Tract Infections Gastrointestinal: History of: GERD Musculoskeletal: History of: Musculoskeletal Problems (Arthritis) - Surgical History Cardiac Surgeries: Sugical HX of: Cardiac Catheterization Neurologic Surgeries: Patient denies: Neurologic Surgery Reproductive Surgeries: Surgical HX of;: Hysterectomy - Family History Family History: Reports;: Family Hypertension (mother, father) Denies;: Family Cancer, Family Diabetes, Family Heart Disease, Family Stroke (not sure) - Social History Smoking Status: Never smoker Frequency of Alcohol Use: None Type of Drug Use: None Review of Systems ROS unobtainable: due to mental status Exam - Vital Signs Vital signs: Period Temp Pulse Resp BP Sys/Alas Pulse Ox Last 24 Hr 96.7 F-98.4 F 88-126 15-28 80-170/45-97 91-100 - General Appearance General appearance: well-developed, frail EENT: ATNC Neck: supple Respiratory: clear Cardiology: regular rate, regular rhythm Gastrointestinal: normoactive bowel sounds, no tenderness Neurologic: no asterixis Musculoskeletal: no clubbing Results - Labs CBC & BMP: 05/16/17 13:06 05/16/17 03:50 Assessment and Plan (1) Oliguria Status: Resolved Assessment and plan: Patient has responded to Lasix therapy. Renal function is stable. Current Visit: Yes (2) Dyspnea Status: Acute Current Visit: Yes (3) Pulmonary embolus Status: Acute Current Visit: Yes Qualifiers: Pulmonary embolism type: saddle
[2017-05-16 16:18] LABS: Calcium 7.7 MG/DL (8.5-10.1); Osmolality,Calculated 292.6 MOS/KG (273-304); Potassium 2.9 MMOL/L (3.5-5.1)
[2017-05-16] MEDS: ALBUTEROL/IPRATROPIUM 3 ML NEB RESP TX SCH ×2 (16:21→19:53)
[2017-05-16] MEDS: DILTIAZEM INJ 100 MG in SODIUM CHLORIDE 0.9% 100 ML IV SCH (18:00)
[2017-05-16] MEDS: ONDANSETRON 4 MG/2 ML VIAL IV PRN (18:01)
[2017-05-16] MEDS: PANTOPRAZOLE 40 MG VIAL IV SCH (18:36)
[2017-05-17] MEDS: POTASSIUM CHLORIDE RIDER 10 MEQ in PREMIX 1 EACH IV SCH ×4 (00:09→16:41)
[2017-05-17] MEDS: ALBUTEROL/IPRATROPIUM 3 ML NEB RESP TX SCH ×4 (00:31→19:35)
[2017-05-17] MEDS: LORazepam 2 MG/1 ML VIAL IV PRN ×2 (01:30→18:23)
[2017-05-17] MEDS: CLINDAMYCIN INJ 600 MG in PREMIX 1 EACH IV SCH ×3 (01:32→16:41)
[2017-05-17] MEDS: HEPARIN DRIP 25,000 UNITS/500 ML PREMIX IV SCH (05:45)
[2017-05-17 05:50] LABS: Basophils % 0.2 % (0.0-0.8); Eosinophils # 0.1 10*3/uL (0.0-0.87); Eosinophils % 0.5 % (0.00-10.9); Hematocrit 32.6 VOL% (35.7-47.0); Hemoglobin 10.5 GM/DL (12.0-16.0); Immature Granulocytes % 1.5 %; Immature Granulocytes Absolute 0.19 #; Lymphocytes # 1.7 10*3/uL (1.4-4.0); Lymphocytes % 13.3 % (21.3-54.2); Mean Corpuscular HGB Conc 32.2 GM/DL (32-36); Mean Corpuscular Hemoglobin 26 PG (27-34); Mean Corpuscular Volume 79.7 FL (87-102); Mean Platelet Volume 9.1 FL (9.6-12.0); Monocytes % 8.1 % (1.7-12.7); Neutrophils # 9.4 10*3/uL (1.4-7.4); Neutrophils % 76.4 % (38.7-73.9); Platelet Count 279 T/CUMM (130-400); Red Blood Count 4.09 MC/CUMM (3.8-5.5); Red Cell Distribution Width 18.6 % (9.3-17.3); White Blood Count 12.4 T/CUMM (4-12)
[2017-05-17] MEDS: MORPHINE 2 MG/1 ML SYRINGE IV PRN ×4 (06:36→23:54)
[2017-05-17 06:37] LABS: Calcium 7.9 MG/DL (8.5-10.1); Potassium 3.6 MMOL/L (3.5-5.1)
[2017-05-17] MEDS: GABAPENTIN 600 MG TABLET PO SCH ×2 (07:33→16:20)
[2017-05-17] MEDS: PARoxetine 20 MG TABLET PO SCH ×2 (07:33→16:20)
[2017-05-17] MEDS: POTASSIUM CHLORIDE RIDER 20 MEQ in PREMIX 1 EACH IV PRN (07:54)
[2017-05-17] MEDS: FUROSEMIDE 40 MG/4 ML VIAL IV SCH (07:54)
--- NOTE | 2017-05-17 09:24 | Nephrology Progress Note ---
Nephrology - PN: Subj Interval history: Patient is resting comfortably. Family members at the bedside. Serum creatinine continues to trend down at 1.2. Urine output has been brisk over the last 24 hours. No other acute changes. No new recommendations will sign off please call if needed. Exam (PN)-Nephrology - Vital Signs Vital signs: Period Temp Pulse Resp BP Sys/Alas Pulse Ox Last 24 Hr 97.0 F-99.9 F 78-127 14-29 87-183/42-112 90-97 - General Appearance General appearance: well-developed, frail Neck: supple Respiratory: clear Cardiology: no edema, regular rate, regular rhythm Gastrointestinal: normoactive bowel sounds, no tenderness Musculoskeletal: no clubbing - Lab 05/17/17 05:39 05/17/17 05:39 Most recent lab results ABG pH 7.446 (7.35-7.45) 05/14/17 12:23 ABG pCO2 28.9 MM HG (35-48) L 05/14/17 12:23 ABG pO2 47.1 MM HG (80-95) L 05/14/17 12:23 ABG HCO3 21.5 MMOL/L (20-26) 05/14/17 12:23 ABG O2 Saturation 81.7 % (95-100) L 05/14/17 12:23 Calcium 7.9 MG/DL (8.5-10.1) L 05/17/17 05:39 Phosphorus 3.3 MG/DL (2.5-4.9) 05/16/17 03:50 Magnesium 1.7 MG/DL (1.8-2.4) L 05/16/17 03:41 Assessment and Plan (1) Oliguria Status: Resolved Assessment and plan: Patient has responded to Lasix therapy. Renal function is stable. Current Visit: Yes (2) Dyspnea Status: Acute Current Visit: Yes (3) Pulmonary embolus Status: Acute Current Visit: Yes Qualifiers: Pulmonary embolism type: saddle
--- NOTE | 2017-05-17 09:37 | Cardiology Progress Note ---
Assessment and Plan (1) Acute respiratory failure with hypoxia Status: Acute Assessment and plan: This is improving Current Visit: Yes (2) Pleural effusion, right Status: Chronic Assessment and plan: Status post large volume thoracentesis. No chest x-ray today chest x-ray yesterday looked dramatically better. Current Visit: Yes (3) Do not resuscitate Status: Acute Current Visit: Yes (4) Pulmonary embolus Status: Acute Assessment and plan: Status post EKOS procedure and also has demonstrable thrombus in right lower extremity as etiology of her pulmonary embolism. Starting Eliquis today Current Visit: Yes Qualifiers: Pulmonary embolism type: saddle (5) CAD (coronary artery disease) Status: Chronic Current Visit: No Qualifiers: Coronary Disease-Associated Artery/Lesion type: [place] artery [place] vs. transplanted heart: [place] heart Associated angina: without angina Qualified Code(s): I25.10 - Atherosclerotic heart disease of [place] coronary artery without angina pectoris (6) Hypertension Status: Chronic Assessment and plan: Controlled Current Visit: No Qualifiers: Hypertension type: essential hypertension Qualified Code(s): I10 - Essential (primary) hypertension (7) DVT (deep venous thrombosis) Status: Acute Current Visit: Yes Qualifiers: DVT location: lower extremity Affected thrombotic vein of extremity: popliteal Chronicity: acute Laterality: right Qualified Code(s): I82.431 - Acute embolism and thrombosis of right popliteal vein (8) Anemia Status: Acute Current Visit: Yes Cardiology - PN: Subj Interval history: Ms. Subramanian looks better. Her H&H have been stable and I discussed with Dr. Lou via phone I do think it is time to initiate her novel anticoagulant agent. Given her age I would use a full dose for the initial therapy and go back to the half dose. I discussed this with Dr. Lou and we are ingredients. The patient states she feels pretty good when I was in there she actually had her Ventimask off and her sats were in the 90s. Exam (Progress Note) - Constitutional Vitals: Period Temp Pulse Resp BP Sys/Alas Pulse Ox Last 24 Hr 97.0 F-99.9 F 78-127 14-29 87-183/42-112 90-97 General appearance: over weight - Head Head exam: Present: normal inspection - Eye Eye exam: Present: EOMI Pupils: Present: HANNA - Respiratory Respiratory exam: Present: clear to auscultation bilaterally (Little bit better effort today.) - Cardiovascular Cardiovascular exam: Present: regular rate and rhythm - GI/Abdominal GI/Abdominal exam: Present: normal bowel sounds - Extremities Exam Extremities exam: Present: other (Right lower extremity still slightly larger than left but it is better is not as erythematous as it was not on admission) - Neurological Exam Neurological exam: Present: alert. Absent: oriented X3 - Psychiatric Psychiatric exam: Present: normal affect - Skin Skin exam: Present: normal color, warm, dry Result/EKG - Labs CBC & BMP: 05/17/17 05:39 05/17/17 05:39 Labs: Laboratory Results - last 24 hr 05/16/17 05/16/17 05/16/17 03:41 03:41 12:30 WBC RBC Hgb Hct MCV MCH MCHC RDW Plt Count MPV Neut % (Auto) Lymph % (Auto) [place] % (Auto) Eos % (Auto) Baso % (Auto) Neut # (Auto) Lymph # (Auto) [place] # (Auto) Eos # (Auto) Baso # (Auto) Immature Gran % Nucleated RBC % Immature Gran # Nucleated RBCs # Circ Anticoag PTT 82.2 H Sodium Potassium Chloride Carbon Dioxide Anion Gap BUN Creatinine GFR Calculation BUN/Creatinine Ratio Glucose Calculated Osmolality Calcium Magnesium 1.7 L Crossmatch See Detail 05/16/17 05/16/17 05/16/17 13:06 15:18 19:20 WBC RBC Hgb 10.8 L D Hct MCV MCH MCHC RDW Plt Count MPV Neut % (Auto) Lymph % (Auto) [place] % (Auto) Eos % (Auto) Baso % (Auto) Neut # (Auto) Lymph # (Auto) [place] # (Auto) Eos # (Auto) Baso # (Auto) Immature Gran % Nucleated RBC % Immature Gran # Nucleated RBCs # Circ Anticoag PTT 109.9 H* D Sodium 146 H Potassium 2.9 L Chloride 112 H Carbon Dioxide 23 Anion Gap 13.9 BUN 21 H Creatinine 1.10 H GFR Calculation 48 BUN/Creatinine Ratio 19.00 Glucose 97 Calculated Osmolality 292.6 Calcium 7.7 L Magnesium Crossmatch 05/16/17 05/17/17 05/17/17 19:20 00:57 05:39 WBC 12.4 H RBC 4.09 D Hgb 11.2 L 10.5 L Hct 32.6 L MCV 79.7 L MCH 26 L MCHC 32.2 RDW 18.6 H Plt Count 279 MPV 9.1 L Neut % (Auto) 76.4 H Lymph % (Auto) 13.3 L [place] % (Auto) 8.1 Eos % (Auto) 0.5 Baso % (Auto) 0.2 Neut # (Auto) 9.4 H Lymph # (Auto) 1.7 [place] # (Auto) 1.0 H Eos # (Auto) 0.1 Baso # (Auto) 0.0 Immature Gran % 1.5 Nucleated RBC % 0.0 Immature Gran # 0.19 Nucleated RBCs # 0.00 Circ Anticoag PTT 74.4 H D Sodium Potassium Chloride Carbon Dioxide Anion Gap BUN Creatinine GFR Calculation BUN/Creatinine Ratio Glucose Calculated Osmolality Calcium Magnesium Crossmatch 05/17/17 05/17/17 05:39 07:25 WBC RBC Hgb Hct MCV MCH MCHC RDW Plt Count MPV Neut % (Auto) Lymph % (Auto) [place] % (Auto) Eos % (Auto) Baso % (Auto) Neut # (Auto) Lymph # (Auto) [place] # (Auto) Eos # (Auto) Baso # (Auto) Immature Gran % Nucleated RBC % Immature Gran # Nucleated RBCs # Circ Anticoag PTT 103.5 H* D Sodium 143 Potassium 3.6 Chloride 110 H Carbon Dioxide 24 Anion Gap 12.6 BUN 19 H Creatinine 1.20 H GFR Calculation 42 BUN/Creatinine Ratio 15.00 Glucose 117 H Calculated Osmolality 287.0 Calcium 7.9 L Magnesium Crossmatch Quality Measures - VTE Contraindication to Mechanical VTE Prophylaxis: Local Inflammation
[2017-05-17] MEDS: APIXABAN 5 MG TABLET PO SCH ×2 (09:59→22:10)
--- NOTE | 2017-05-17 10:16 | Pathology Report from [facility] ---
[facility] ACCESSION # : [id number] PATIENT NAME : Emily Pedro ORDERING DR : EDE LARRY MD CLINICAL HX: Pleural Effusion; shortness of breath POST-OP DX: Same SPECIMEN INFO: Fluid,Pleural,Right - 400 mls yellow, cloudy CLASS: II CLASS COMMENTS: Blood, inflammation, reactive mesothelials, proteinaceous material.CELL BLOCK: Same CLASS LEGEND: CLASS 0 Material inadequate for diagnosis because of (see comment) CLASS I Absence of atypical or abnormal cells CLASS II Atypical Cytology but no evidence of malignancy CLASS III Cytology suggestive of but not conclusive for malignancy CLASS IV Cytology strongly suggestive of malignancy CLASS V Cytology conclusive for malignancy COLLECTED DATE: 05/16/2017 [facility] REPORT DATE: 05/17/2017 ELECTRONICALLY SIGNED BY: Gilbert Knight M.D. 05/17/2017 - 9:24:57 [email or web address]
[2017-05-17] MEDS: INSULIN REGULAR 100 UNIT/ML SUBCUT SCH ×3 (12:24→23:42)
[2017-05-17] MEDS: DILTIAZEM INJ 100 MG in SODIUM CHLORIDE 0.9% 100 ML IV SCH ×2 (12:51→18:24)
--- NOTE | 2017-05-17 14:12 | Hospitalist Progress Note ---
Assessment and Plan (1) Pulmonary embolus Status: Acute Assessment and plan: converted to eliquis which has to be given po Current Visit: Yes Qualifiers: Pulmonary embolism type: saddle (2) Acute respiratory failure with hypoxia Status: Acute Assessment and plan: improving, now on nasal cannula Current Visit: Yes (3) Pleural effusion, right Status: Chronic Assessment and plan: right thoracentesis done, increased Current Visit: Yes (4) Do not resuscitate Status: Acute Assessment and plan: no feeding tube, patient is aspirating when she tries to eat Current Visit: Yes (5) Right leg DVT Status: Acute Assessment and plan: s/p filter Current Visit: Yes (6) Acute blood loss anemia Status: Acute Assessment and plan: hgb stable 10.5 Current Visit: Yes (7) Hypokalemia Status: Acute Assessment and plan: resolved Current Visit: Yes (8) Pulmonary hypertension Status: Acute Assessment and plan: Could be secondary to pulmonary embolus, Current Visit: Yes (9) Acute diastolic (congestive) heart failure Status: Acute Assessment and plan: decrease lasix to 40 mg IV daily Current Visit: Yes (10) Confusion Status: Acute Assessment and plan: better today Current Visit: Yes (11) Aspiration pneumonia Status: Acute Assessment and plan: must still eat, continue Levaquin and clindamycin Current Visit: Yes Hospitalist: Subjective Interval history: Had a discussion with daughter today. Nursing reports that they are still afraid to give her anything by mouth because she chokes. We have already established that were not doing a feeding tube so she has to be able to take p.o. medicines. If she is unable to take anything p.o. then we have to go hospice comfort care. Patient is finally sleeping. Do not want to disturb her at this time. Exam - Constitutional Vitals: Period Temp Pulse Resp BP Sys/Alas Pulse Ox Last 24 Hr 97 F-99.9 F 78-113 13-29 87-180/42-98 90-97 Exam: Heart Rate-[RRR] Lungs-[rhonchi GI-[+bs soft, NT] Ext-[1+ edema] Neuro [sleeping Psych unable to evaluate, sleeping General [no acute distress] Results - Labs CBC & BMP: 05/17/17 05:39 05/17/17 05:39 Lab Results: I have reviewed the past 24 hour labs Quality Measures - VTE Contraindication to Mechanical VTE Prophylaxis: Local Inflammation
[2017-05-17] MEDS: PANTOPRAZOLE 40 MG VIAL IV SCH (16:41)
[2017-05-17] MEDS ORDERED: LEVOFLOXACIN INJ 750 MG in PREMIX 1 EACH IV SCH (17:00)
[2017-05-17] MEDS: ONDANSETRON 4 MG/2 ML VIAL IV PRN ×2 (17:54→22:15)
[2017-05-17] MEDS ORDERED: NALOXONE 0.4 MG/ML VIAL ONE (21:29)
[2017-05-17] MEDS ORDERED: NALOXONE 0.4 MG/ML VIAL IV ONE (21:32)
[2017-05-17] MEDS ORDERED: ENOXAPARIN 80 MG/0.8 ML SYRINGE SUBCUT SCH (22:30)
[2017-05-18] MEDS: CLINDAMYCIN INJ 600 MG in PREMIX 1 EACH IV SCH ×3 (00:08→17:02)
[2017-05-18] MEDS: ALBUTEROL/IPRATROPIUM 3 ML NEB RESP TX SCH ×4 (00:47→19:18)
[2017-05-18] MEDS: MORPHINE 2 MG/1 ML SYRINGE IV PRN ×3 (03:55→12:22)
[2017-05-18] MEDS: LORazepam 2 MG/1 ML VIAL IV PRN ×3 (05:04→19:50)
[2017-05-18 05:25] LABS: Basophils % 0.2 % (0.0-0.8); Eosinophils # 0.1 10*3/uL (0.0-0.87); Eosinophils % 1.4 % (0.00-10.9); Hematocrit 32.4 VOL% (35.7-47.0); Hemoglobin 10.4 GM/DL (12.0-16.0); Immature Granulocytes % 1.2 %; Immature Granulocytes Absolute 0.12 #; Lymphocytes # 1.6 10*3/uL (1.4-4.0); Lymphocytes % 15.2 % (21.3-54.2); Mean Corpuscular HGB Conc 32.1 GM/DL (32-36); Mean Corpuscular Hemoglobin 26 PG (27-34); Monocytes % 9.4 % (1.7-12.7); Neutrophils # 7.4 10*3/uL (1.4-7.4); Neutrophils % 72.6 % (38.7-73.9); Platelet Count 232 T/CUMM (130-400); Red Cell Distribution Width 19.3 % (9.3-17.3); White Blood Count 10.2 T/CUMM (4-12)
[2017-05-18 05:48] LABS: Magnesium 1.7 MG/DL (1.8-2.4); Osmolality,Calculated 287.8 MOS/KG (273-304); Potassium 3.8 MMOL/L (3.5-5.1)
[2017-05-18] MEDS: INSULIN REGULAR 100 UNIT/ML SUBCUT SCH ×3 (06:12→18:12)
[2017-05-18] MEDS: POTASSIUM CHLORIDE RIDER 20 MEQ in PREMIX 1 EACH IV PRN (06:13)
[2017-05-18] MEDS: DILTIAZEM INJ 100 MG in SODIUM CHLORIDE 0.9% 100 ML IV SCH ×2 (07:31→19:28)
--- NOTE | 2017-05-18 08:24 | Cardiology Progress Note ---
Assessment and Plan (1) Pleural effusion, right Status: Chronic Assessment and plan: . Current Visit: Yes (2) Do not resuscitate Status: Acute Current Visit: Yes (3) Pulmonary embolus Status: Acute Assessment and plan: Status post EKOS procedure and also has demonstrable thrombus in right lower extremity as etiology of her pulmonary embolism. Failed swallowing eval continue parenteral anticoagulant Current Visit: Yes Qualifiers: Pulmonary embolism type: saddle (4) CAD (coronary artery disease) Status: Chronic Current Visit: No Qualifiers: Coronary Disease-Associated Artery/Lesion type: [place] artery [place] vs. transplanted heart: [place] heart Associated angina: without angina Qualified Code(s): I25.10 - Atherosclerotic heart disease of [place] coronary artery without angina pectoris (5) Hypertension Status: Chronic Assessment and plan: Controlled Current Visit: No Qualifiers: Hypertension type: essential hypertension Qualified Code(s): I10 - Essential (primary) hypertension (6) DVT (deep venous thrombosis) Status: Acute Current Visit: Yes Qualifiers: DVT location: lower extremity Affected thrombotic vein of extremity: popliteal Chronicity: acute Laterality: right Qualified Code(s): I82.431 - Acute embolism and thrombosis of right popliteal vein (7) Anemia Status: Acute Current Visit: Yes Cardiology - PN: Subj Interval history: The patient is confused and somewhat combative this appears to be worsened by narcotic analgesics. Nurses are applying restraints while I was there. The patient followed her swallow eval and radiology was unable to advance Dobbhoff tube presumptively because of hiatus hernia. The patient is not oriented at this time. She will converse. She moves all extremities very well. Because the patient is unable to eat her oral medications have been held. She is continues to be on Lovenox her H&H are stable. From a cardiovascular standpoint there is little to add at this time the patient needs to be anticoagulated. She appears to be dry and would likely benefit from enteral nutrition I do not know how that is best achieved. Dr. Lou will discuss with the family per the nurses. Her hemodynamics are good but her mental status is not. This may be temporary or transient or delirium but further evaluation may be needed. I have nothing further to add from a cardiovascular standpoint. I will sign off. Please call if needed. Exam (Progress Note) - Constitutional Vitals: Period Temp Pulse Resp BP Sys/Alas Pulse Ox Last 24 Hr 97 F-99.1 F 83-119 7-21 94-166/47-100 88-94 General appearance: over weight - Head Head exam: Present: normal inspection - Eye Eye exam: Present: EOMI Pupils: Present: HANNA (Small but reactive) - ENT ENT exam: Present: other (Her membranes are very dry) - Respiratory Respiratory exam: Present: clear to auscultation bilaterally (Not very cooperative for exam) - Cardiovascular Cardiovascular exam: Present: regular rate and rhythm (Tachycardia is sinus mechanism on telemetry) - GI/Abdominal GI/Abdominal exam: Present: normal bowel sounds - Extremities Exam Extremities exam: Present: other (Right lower extremity continues to improve) - Neurological Exam Neurological exam: Present: alert. Absent: oriented X3 - Psychiatric Psychiatric exam: Present: agitated - Skin Skin exam: Present: warm, dry Result/EKG - Labs CBC & BMP: 05/18/17 05:20 05/18/17 05:11 Labs: Laboratory Results - last 24 hr 05/17/17 05/18/17 05/18/17 18:25 05:11 05:20 WBC 10.2 RBC 4.00 Hgb 10.4 L Hct 32.4 L MCV 81.0 L MCH 26 L MCHC 32.1 RDW 19.3 H Plt Count 232 MPV 9.0 L Neut % (Auto) 72.6 Lymph % (Auto) 15.2 L [place] % (Auto) 9.4 Eos % (Auto) 1.4 Baso % (Auto) 0.2 Neut # (Auto) 7.4 Lymph # (Auto) 1.6 [place] # (Auto) 1.0 H Eos # (Auto) 0.1 Baso # (Auto) 0.0 Immature Gran % 1.2 Nucleated RBC % 0.0 Immature Gran # 0.12 Nucleated RBCs # 0.00 Sodium 144 Potassium 3.8 Chloride 110 H Carbon Dioxide 24 Anion Gap 13.8 BUN 22 H Creatinine 1.00 GFR Calculation 53 BUN/Creatinine Ratio 22.00 H Glucose 87 POC Glucose 93 Calculated Osmolality 287.8 Calcium 8.0 L Magnesium 1.7 L Quality Measures - VTE Contraindication to Mechanical VTE Prophylaxis: Local Inflammation
[2017-05-18] MEDS: FUROSEMIDE 40 MG/4 ML VIAL IV SCH (08:48)
[2017-05-18] MEDS: GABAPENTIN 600 MG TABLET PO SCH ×2 (09:15→17:14)
[2017-05-18] MEDS: PARoxetine 20 MG TABLET PO SCH ×2 (09:16→17:14)
[2017-05-18] MEDS ORDERED: MAGNESIUM SULF RIDER 2 GM in PREMIX 1 EACH IV ONE (09:30)
[2017-05-18] MEDS: APIXABAN 5 MG TABLET PO SCH ×2 (10:12→22:00)
[2017-05-18] MEDS: ONDANSETRON 4 MG/2 ML VIAL IV PRN (10:16)
--- NOTE | 2017-05-18 10:49 | Hospitalist Progress Note ---
Assessment and Plan (1) Pulmonary embolus Status: Acute Assessment and plan: unable to take po meds, family has elected hospice care Current Visit: Yes Qualifiers: Pulmonary embolism type: saddle (2) Acute respiratory failure with hypoxia Status: Acute Assessment and plan: improving Current Visit: Yes (3) Pleural effusion, right Status: Chronic Assessment and plan: right thoracentesis done, increased Current Visit: Yes (4) Do not resuscitate Status: Acute Assessment and plan: change to home hospice Current Visit: Yes (5) Right leg DVT Status: Acute Assessment and plan: s/p filter Current Visit: Yes (6) Acute blood loss anemia Status: Acute Assessment and plan: hgb stable 10.5 Current Visit: Yes (7) Hypokalemia Status: Acute Assessment and plan: resolved Current Visit: Yes (8) Pulmonary hypertension Status: Acute Assessment and plan: Could be secondary to pulmonary embolus, Current Visit: Yes (9) Acute diastolic (congestive) heart failure Status: Acute Assessment and plan: stop Current Visit: Yes (10) Confusion Status: Acute Assessment and plan: remains confused Current Visit: Yes (11) Aspiration pneumonia Status: Acute Assessment and plan: cont abx for now Current Visit: Yes Hospitalist: Subjective Interval history: Patient is unable to swallow pills and eat. I had a long conversation with her 3 daughters about comfort care end-of-life care and hospice. Patient has not improved enough for her to be swallowing and eating on her own as it causes her discomfort when she aspirates. Family does not want a feeding tube and I am in agreement. Patient cannot remain on all IV drips for after in his shown no improvement in her mental status. Family has chosen home hospice we will try to get her home tomorrow with hospice from [facility]. Exam - Constitutional Vitals: Period Temp Pulse Resp BP Sys/Alas Pulse Ox Last 24 Hr 97 F-99.1 F 83-126 7-20 94-190/47-100 88-94 Exam: Heart Rate-[RRR] Lungs-[rhonchi GI-[+bs soft, NT] Ext-[trace edema] Neuro [sleeping Psych agitated mood and affect General [no acute distress] Results - Labs CBC & BMP: 05/18/17 05:20 05/18/17 05:11 Lab Results: I have reviewed the past 24 hour labs Quality Measures - VTE Contraindication to Mechanical VTE Prophylaxis: Local Inflammation
[2017-05-18] MEDS ORDERED: fentaNYL 12 MCG/HR PATCH TRANSDERM SCH (11:00)
[2017-05-18] MEDS ORDERED: LEVOFLOXACIN INJ 750 MG in PREMIX 1 EACH IV SCH (17:00)
[2017-05-18] MEDS: PANTOPRAZOLE 40 MG VIAL IV SCH (17:02)
[2017-05-19] MEDS: INSULIN REGULAR 100 UNIT/ML SUBCUT SCH ×2 (00:02→06:13)
[2017-05-19] MEDS: ALBUTEROL/IPRATROPIUM 3 ML NEB RESP TX SCH ×2 (00:03→07:19)
[2017-05-19] MEDS: CLINDAMYCIN INJ 600 MG in PREMIX 1 EACH IV SCH ×2 (00:41→07:54)
[2017-05-19] MEDS: LORazepam 2 MG/1 ML VIAL IV PRN ×3 (03:40→11:32)
[2017-05-19 05:15] LABS: Basophils % 0.1 % (0.0-0.8); Eosinophils # 0.2 10*3/uL (0.0-0.87); Eosinophils % 1.8 % (0.00-10.9); Hematocrit 31.4 VOL% (35.7-47.0); Hemoglobin 9.7 GM/DL (12.0-16.0); Immature Granulocytes Absolute 0.08 #; Lymphocytes # 1.1 10*3/uL (1.4-4.0); Lymphocytes % 12.8 % (21.3-54.2); Mean Corpuscular HGB Conc 30.9 GM/DL (32-36); Mean Corpuscular Hemoglobin 26 PG (27-34); Mean Corpuscular Volume 82.8 FL (87-102); Mean Platelet Volume 9.1 FL (9.6-12.0); Monocytes # 0.9 10*3/uL (0.11-0.8); Monocytes % 10.6 % (1.7-12.7); Neutrophils # 6.2 10*3/uL (1.4-7.4); Neutrophils % 73.7 % (38.7-73.9); Platelet Count 260 T/CUMM (130-400); Red Blood Count 3.79 MC/CUMM (3.8-5.5); Red Cell Distribution Width 19.9 % (9.3-17.3); White Blood Count 8.4 T/CUMM (4-12)
[2017-05-19 05:20] LABS: Calcium 8.7 MG/DL (8.5-10.1); Magnesium 2.2 MG/DL (1.8-2.4); Osmolality,Calculated 292.7 MOS/KG (273-304); Potassium 3.6 MMOL/L (3.5-5.1)
--- NOTE | 2017-05-19 08:00 | Discharge Summary ---
<Jill Jacksonda - Last Filed: 05/19/17 08:47> Hospital Course - Hospital Course Hospital Course: This is a chronically ill 87-year-old female that presented to the ED at [facility] on May 14, 2017 via EMS for the evaluation of shortness of breath and altered mental status. Patient has a very complex medical history significant for: Congestive heart failure, coronary artery disease, hypertension, depression, cerebrovascular accident, migraines, dyslipidemia, pneumonia, chronic urinary tract infections, arthritis, and GERD. Patient has a surgical history of cardiac catheterization and hysterectomy. The patient was recently hospitalized here at [facility] in March of this year for pneumonia and urinary tract infection. The patient was currently receiving therapy services at [facility] at the time of the onset of the above symptoms. At the time of presentation, the patient was grossly altered and experiencing mild respiratory distress. Her family was present at bedside and they serve historians. The family reported that the patient's health was rapidly declining since her previous hospitalization. They were concerned that this was an acute change in her status; prior to the admission the patient had been living independently at a local independent living facility. At the time of ED presentation, the patient was assessed. Labs were obtained. Due to her obvious respiratory impairment, CT chest was obtained which was significant for saddle embolus, hiatal hernia, left 9 mm adrenal nodule, moderately large and very small right and left pleural effusions, and progressive parenchymal pathology which was consistent with infiltration/ atelectasis. The patient was immediately taken to the catheterization lab for EKOS. In addition, the patient was noted to have a thrombus in the right lower extremity. On May 15, 2017, the patient underwent ultrasound-guided thoracentesis for the treatment of right pleural effusion, in which 400 cc of pleural fluid was removed. In addition, on May 15, 2017, the patient underwent inferior vena cava filter placement and right internal jugular vein access. During the inferior vena cava placement, an attempt was made to pass a Dobbhoff tube which was unsuccessful. On May 17, 2017, the patient experienced a gradual onset of oliguria and a moderate increase in her serum creatinine which was noted at 1.7. A nephrology consult was requested at that time. The patient was given intravenous diuretics and her renal function gradually returned to normal. On May 17, 2017 , the patient was started on oral anticoagulant agents after consulting with cardiology. The patient experienced a change in her mental status; and became combative and confused. Speech therapy was consulted for a swallowing evaluation; in which the patient failed. At that time, the family was approached regarding percutaneous endoscopic tube placement. Family added decided against a feeding tube and patient is no longer eating or taking any of her oral medications. The family agreed comfort end-of-life care with hospice. Today, the patient's condition remains unchanged. The patient remains confused and is unable to swallow. The family remains in agreement for comfort end-of- life care and hospice services. The patient will be discharged home today with [facility] to follow. She will be discharged home on comfort meds which will include oxygen, fentanyl patch, prn morphine and ativan. Patient seen and examined. Hospital course reviewed and edited. Discharge Plan - Discharge Data Disposition: Hospice - Home - Discharge Medications New LORazepam [Lorazepam Intensol] 0.5 ml PO Q1H #30 ml Morphine Sulfate [Morphine Conc Liquid] 0.5 ml PO Q1H #30 ml fentaNYL 12 MCG/HR PATCH [Duragesic 12 Patch] 1 patch TRANSDERM Q3DAY #5 patch Discontinued amLODIPine [Norvasc] 5 mg PO DAILY@12 Potassium Chloride 10 meq PO DAILY@12 PARoxetine [Paxil] 20 mg PO BID W/MEALS Clorazepate [Tranxene] 3.75 mg PO BID PRN PRN Reason: Anxiety Gabapentin 600 mg PO BID W/MEALS Carvedilol 12.5 mg PO DAILY W/BREAKFAST Furosemide 20 mg PO DAILY@12 ARIPiprazole [Aripiprazole] 2 mg PO DAILY@12 Pantoprazole Tab [Protonix Tab] 40 mg PO BID W/MEALS Aspirin Chew Tab 81 mg PO DAILY #0 tablet Topiramate 25 mg PO TID W/MEALS Carvedilol 6.25 mg PO DAILY W/SUPPER Temazepam 15 mg PO BEDTIME Levofloxacin Tab [Levaquin Tab] 500 mg PO DAILY #5 tablet - Follow Up or Referral - Forms/Instructions Exam - Constitutional Vitals: Period Temp Pulse Resp BP Sys/Alas Pulse Ox Last 24 Hr 96.7 F-98.8 F 82-137 11-36 92-190/45-116 87-100 Discharge Results Procedures and tests throughout hospitalization: Pending Orders 05/14/17 11:40 Blood Culture Stat 05/15/17 19:27 Cytology Request Routine 05/15/17 19:50 AFB Culture/Smears Routine 05/20/17 04:00 BMP w/ Mg [Basic Metabolic Panel w/Mg] IN AM CBC [Comp Blood Count Auto Diff] IN AM 05/21/17 04:00 BMP w/ Mg [Basic Metabolic Panel w/Mg] IN AM CBC [Comp Blood Count Auto Diff] IN AM Labs on day of discharge: Labs from last 24 hours 05/19/17 05/19/17 05/18/17 04:41 04:41 18:08 WBC 8.4 RBC 3.79 L Hgb 9.7 L Hct 31.4 L MCV 82.8 L MCH 26 L MCHC 30.9 L RDW 19.9 H Plt Count 260 MPV 9.1 L Neut % (Auto) 73.7 Lymph % (Auto) 12.8 L Rankin % (Auto) 10.6 Eos % (Auto) 1.8 Baso % (Auto) 0.1 Neut # (Auto) 6.2 Lymph # (Auto) 1.1 L Rankin # (Auto) 0.9 H Eos # (Auto) 0.2 Baso # (Auto) 0.0 Immature Gran % 1.0 Nucleated RBC % 0.0 Immature Gran # 0.08 Nucleated RBCs # 0.00 Sodium 145 Potassium 3.6 Chloride 110 H Carbon Dioxide 25 Anion Gap 13.6 BUN 26 H Creatinine 0.80 GFR Calculation 69 BUN/Creatinine Ratio 32.00 H Glucose 91 POC Glucose 113 H Calculated Osmolality 292.7 Calcium 8.7 Magnesium 2.2 05/18/17 12:30 WBC RBC Hgb Hct MCV MCH MCHC RDW Plt Count MPV Neut % (Auto) Lymph % (Auto) Rankin % (Auto) Eos % (Auto) Baso % (Auto) Neut # (Auto) Lymph # (Auto) Rankin # (Auto) Eos # (Auto) Baso # (Auto) Immature Gran % Nucleated RBC % Immature Gran # Nucleated RBCs # Sodium Potassium Chloride Carbon Dioxide Anion Gap BUN Creatinine GFR Calculation BUN/Creatinine Ratio Glucose POC Glucose 92 Calculated Osmolality Calcium Magnesium Preliminary micro results at discharge 05/14/17 11:40 Blood Culture - Preliminary Blood No growth at 3 days 05/14/17 11:40 Blood Culture - Preliminary Blood No growth at 3 days DS: Provider Date of admission: 05/14/17 14:16 Primary care physician: . No PCP Attending physician on admission: Mera Lou MD Consults: 05/14/17 16:31 Consult to Physician [CONS] Routine Comment: EKOS Consulting Provider: Pepe Brito 05/15/17 09:10 Consult to Dietitian [CONS] Routine Reason for Dietitian: TF-Initiate/Manage 05/16/17 08:04 Consult to Physician [CONS] Routine Comment: poor uo, no dialysis Consulting Provider: Hunter Mcgrath Jr. When should Consulting Provider be notified: Now Person Notified: nasra Date Notified: 05/16/17 Time Notified: 08:25 05/18/17 10:45 Consult to Case Mgmt/Social Srvs [CONS] Routine Reason for Case Mgmt/Social Srvs: Equipment Palliative Care Other Consult Comment: hospital bed, quality hospice at home, lift, home oxygen Discharging clinician: Ginette Jackson CNP <Mera Lou - Last Filed: 05/19/17 11:30> Hospital Course - Time spent with patient Time with patient DS: Greater than 30 minutes (40 min) Diagnosis - Discharge Diagnosis (1) Pulmonary embolus Status: Acute (2) Acute respiratory failure with hypoxia Status: Acute (3) Pleural effusion, right Status: Chronic (4) Do not resuscitate Status: Acute (5) Right leg DVT Status: Acute (6) Acute blood loss anemia Status: Acute (7) Hypokalemia Status: Acute (8) Pulmonary hypertension Status: Acute (9) Acute diastolic (congestive) heart failure Status: Acute (10) Confusion Status: Acute (11) Aspiration pneumonia Status: Acute Discharge Plan - Discharge Data Condition at Discharge: Guarded Discharge Diet: other (comfort feedings) Activity: wear oxygen at all times, other (bedrest) - Forms/Instructions Additional Discharge Instructions: home with hospice by ambulance. Oxygen 2 liter nc. leave in foss but remove central line Exam - Constitutional General appearance: no acute distress, morbidly obese - Respiratory Respiratory exam: Present: decreased breath sounds, rhonchi - Cardiovascular Cardiovascular exam: Present: tachycardia - GI/Abdominal GI/Abdominal exam: Present: normal bowel sounds, soft. Absent: tenderness - Neurological Exam Neurological exam: Present: altered - Psychiatric Psychiatric exam: Present: agitated, anxious
[2017-05-19] MEDS: GABAPENTIN 600 MG TABLET PO SCH (08:31)
[2017-05-19] MEDS: PARoxetine 20 MG TABLET PO SCH (08:32)
[2017-05-19] MEDS: APIXABAN 5 MG TABLET PO SCH (09:26)
[2017-05-19] MEDS: FUROSEMIDE 40 MG/4 ML VIAL IV SCH (09:35)
[2017-05-19] MEDS: MORPHINE 2 MG/1 ML SYRINGE IV PRN (11:31)
[2017-05-19 11:57] VITALS: BP 153/88
== END 2017-05-19 11:55 | disposition hospice, home (50) | DRG 166 ==
LOC: EDBD → EDUNIT# → N.ED 10:33 → N.EDINP 14:16 → N.CC 15:27
PROVIDERS: ADMIT Internal Medicine; ATTEND Internal Medicine
PROC: IRTHORA (2017-05-15 16:55)